=== PATIENT | female | born 1980 | race Caucasian/White ===

== ENCOUNTER 2020-01-07 09:21 | Emergency (ER) | payer SELFPAY ==
--- NOTE | 2020-01-07 | CT_ITS ---
EXAMINATION: CT ABDOMEN AND PELVIS WITH CONTRAST CLINICAL INFORMATION: Left-sided abdominal pain. Elevated glucose. COMPARISON: CT of the abdomen and pelvis done on 11/20/2011. TECHNIQUE: Multidetector volumetric images were obtained from the superior aspect of the liver through the pubic symphysis following administration 85 mL of Omnipaque 350 intravenous contrast. Sagittal and coronal reformatted images were obtained on the technologist's workstation. Oral contrast: No This CT examination was performed using dose optimization techniques as appropriate, variously including the following: *Automated exposure control *Adjustment of mA and/or kV according to patient size (this includes techniques or standardized protocols for targeted exams where dose is matched to indication/reason for exam; i.e. extremities or head) *Use of iterative reconstruction technique DLP: 438.29 mGy-cm FINDINGS: LUNG BASES: The visualized lung bases are unremarkable. LIVER, GALLBLADDER, AND BILIARY TREE: The liver is normal in size, shape, and attenuation. No focal hepatic lesion or biliary ductal dilatation is present. The gallbladder is surgically absent. PANCREAS: Unremarkable. SPLEEN: Unremarkable. ADRENAL GLANDS: Unremarkable. KIDNEYS AND URETERS: The kidneys are normal in size, shape, and attenuation. No hydronephrosis, hydroureter, or calculi seen. No perinephric stranding. Incidental note is made of a sub-5 mm hypodensity at the posterior-inferior cortex of the right kidney, too small for accurate characterization. BLADDER: Unremarkable. GASTROINTESTINAL TRACT: The small and large bowel are unremarkable. The appendix is unremarkable. ABDOMINAL WALL: No significant hernia is appreciated. LYMPH NODES: Normal. VASCULAR: Unremarkable. PELVIC VISCERA: Unremarkable. OSSEOUS STRUCTURES: Unremarkable. IMPRESSION: No CT evidence of any acute intra-abdominal and/or intrapelvic pathology is present. Incidental note is made of surgically absent gallbladder and sub-5 mm nonspecific subtle hypodense lesion within the right kidney, too small for accurate characterization.
[2020-01-07 09:30] VITALS: BP 121/88; PULSE 95; RESP 18; O2SAT 100; BMI 22.0
--- NOTE | 2020-01-07 10:03 | XR_ITS ---
EXAMINATION: XR CHEST CLINICAL INFORMATION: Elevated glucose and left-sided abdominal pain. COMPARISON: 08/25/2019 TECHNIQUE: 2 views of the chest were obtained. FINDINGS: Lungs are well-inflated and clear. Trachea is midline in position. No interstitial disease, consolidation or mass. No pleural effusion or pneumothorax. Cardiac silhouette and pulmonary vessels are normal in size. The mediastinum and donya have normal contour. The visualized bones, and upper abdomen, are unremarkable. IMPRESSION: Lungs are normal. No mass or pleural effusion. No acute cardiopulmonary abnormality.
[2020-01-07 10:42] LABS: MANUAL DIFF FLAG NO
[2020-01-07 10:44] LABS: Basophils Absolute Auto 0.1 X10*3/uL (0.0-0.2); Basophils Percent Auto 0.4 % (0-2); Eosinophils Absolute Auto 0.1 X10*3/uL (0.0-0.4); Eosinophils Percent Auto 1.1 % (0-4); Hematocrit 31.6 % (37-47); Hemoglobin 9.2 g/dl (12.0-16.0); Imm Gran Abs Auto 0.07 X10*3/uL (0.00-0.03); Imm Gran Pct Auto 0.5 % (0.0-0.4); Lymphocytes Absolute Auto 2.3 X10*3/uL (1.2-4.9); Lymphocytes Percent Auto 18.2 % (20-40); Mean Corpuscular HGB Conc 29.1 g/dl (31.0-35.0); Mean Corpuscular Hemoglobin 20.7 pg (27.0-33.0); Mean Corpuscular Volume 71.2 fL (80-98); Mean Platelet Volume 10.6 fL (9.4-12.3); Monocytes Absolute Auto 1.1 X10*3/uL (0.1-1.2); Monocytes Percent Auto 8.2 % (2-11); Neutrophils Absolute Auto 9.1 X10*3/uL (2.0-8.3); Neutrophils Percent Auto 71.6 % (45-73); Platelet Count 416 X10*3/uL (160-400); Red Blood Count 4.44 X10*6/uL (4.20-5.50); Red Cell Distribution Width 16.5 % (11.0-16.0); White Blood Count 12.8 X10*3/uL (4.8-10.8)
[2020-01-07 10:50] LABS: Glucose Urine UA >=1000 MG/DL (NEG); Leukocyte Esterase Urine NEG (NEG); Nitrite Urine NEG (NEG); Urine Blood 3+ (NEG); Urine Ketones 15 MG/DL (NEG); Urine Protein 1+ MG/DL (NEG-TRACE)
[2020-01-07] MEDS: 0.9 % Sodium Chloride 1,000 ML 999 ML IVCONT (10:50)
[2020-01-07 10:51] LABS: Appearance Urine CLOUDY; Color Urine YELLOW
[2020-01-07] MEDS: ondansetron HCL 4 MG/2 ML VIAL IVPUSH (10:51)
[2020-01-07] MEDS: Morphine Sulfate 4 MG/ML CARTRIDGE IVPUSH (10:51)
[2020-01-07 10:52] VITALS: BP 107/74; RESP 16; O2SAT 98
[2020-01-07 10:55] LABS: UPreg QC Valid YES; Urine Pregnancy NEGATIVE (NEGATIVE)
--- NOTE | 2020-01-07 10:55 | PC.NURSE ---
PT ALERT AND ORIENTED X4. SKIN WPD. RESPIRATIONS EVEN AND NON LABORED. C/O 9/10 PAIN TO LUQ; AREA TENDER TO PALPATION. DENIES N/V/D. MEDICATED WITH IV NS, ZOFRAN, MORPHINE PER EMAR. VSS. AWAITING LAB RESULTS AND ABD CT. PT ALSO REPORTS HYPERGLYCEMIA OF 500 THIS AM; STATES HER BLOOD SUGAR HAS BEEN A LITTLE HIGH, BUT NOT THIS BAD RECENTLY. TAKES METFORMIN ONLY.
[2020-01-07 11:10] LABS: Magnesium 1.9 mg/dL (1.6-2.6)
[2020-01-07 11:11] LABS: Bacteria Urine 3+ /LPF; Squamous Epithelial Cell Urine 2+ /LPF
[2020-01-07 11:12] LABS: Alanine Aminotransferase 13 U/L (0-31); Albumin Level 4.2 g/dL (3.5-5.0); Alkaline Phosphatase 93 U/L (39-117); Anion Gap 15 (12-20); Aspartate Amino Transferase 10 U/L (5-31); Bilirubin Direct 0.2 mg/dL (0.0-0.5); Bilirubin Total 0.4 mg/dL (0.0-1.0); Blood Urea Nitrogen 8 mg/dL (9-16); Carbon Dioxide 21 mmol/L (22-29); Chloride 100 mmol/L (96-108); Estimated Glomerular Filt Rate > 60; Lipase 28 U/L (8-78); Sodium 132 mmol/L (135-145); Total Protein 7.7 g/dL (6.5-8.0)
[2020-01-07 11:17] LABS: Troponin-I High Sensitivity < 3.5 ng/L (<3.5-17.0)
[2020-01-07 11:20] LABS: Glucose Random 457 mg/dL (60-115)
[2020-01-07 11:41] VITALS: BP 118/85; PULSE 91; RESP 18; TEMP 36.7; O2SAT 99
[2020-01-07] MEDS: iohexoL 350 MG/ML 100 ML INFUS..BTL IV (12:27)
[2020-01-07 12:31] LABS: Acetone, serum QL Negative (Negative)
--- NOTE | 2020-01-07 12:36 | ED_ITS ---
HPI - Abdominal Pain General Chief Complaint: Recheck/Abnormal Lab/Rx Stated Complaint: blood sugar high Time Seen by Provider: 01/07/20 09:42 Source: patient Mode of arrival: ambulatory Limitations: no limitations History of Present Illness HPI narrative: 39yoF c PMhx of DM currently on Metformin 1000mg BID, anemia, migraine headaches, neuropathy and arthritis presenting to the ED c c/o elevated blood glucose level in the 500s prior to arrival after eating breakfast and taking her metformin with associated right abdominal pain that started today c associated increased urgency/frequency and dysuria. Patient denies any fevers, nausea / vomiting, dizziness, changes in vision, lightheadedness, chest pain or shortness of breath, back pain, hematuria or abnormal vaginal discharge. Related Data Home Medications Medication Instructions Recorded Confirmed metformin 1,000 mg PO BID 01/07/20 01/07/20 Previous Rx's Medication Instructions Recorded cephalexin [Keflex] 500 mg PO Q6H 10 Days #40 cap 01/07/20 oxycodone-acetaminophen [Percocet] 1 tab PO Q6H PRN #10 tab 01/07/20 phenazopyridine [Pyridium] 100 mg PO TID PRN #10 tab 01/07/20 Allergies Allergy/AdvReac Type Severity Reaction Status Date / Time iron dextran complex AdvReac Intermediate SOB, Verified 01/07/20 09:38 [IRON DEXTRAN COMPLEX] COUGHING, FLUSHING, Review of Systems Review of Systems Yes all other systems are reviewed and are negative Constitutional: Reports as per HPI, Denies anorexia, Denies body ache(s), Denies chills, Denies fatigue, Denies fever(s), Denies headache(s), Denies poor appetite, Denies weakness, Denies weight gain and Denies weight loss Eyes: Reports as per HPI Reports as per HPI, Denies dizziness, Denies headache(s) and Denies neck pain Cardiovascular: Reports as per HPI, Denies chest pain and Denies dyspnea Respiratory: Reports as per HPI, Denies cough and Denies dyspnea Gastrointestinal: Reports as per HPI, Reports abdominal pain, Denies melena, Denies hematochezia, Denies coffee ground emesis, Denies constipation, Denies diarrhea, Denies loose stools, Denies nausea, Denies vomiting and Denies hematemesis Genitourinary: Reports as per HPI, Denies hematuria, Denies urinary frequency, Denies genital lesions, Reports dysuria, Denies flank pain, Reports urinary hes itancy and Reports urinary urgency Musculoskeletal: Reports as per HPI, Denies neck pain, Denies numbness and Denies tingling Skin/Breast: Reports as per HPI Reports as per HPI, Denies dizziness, Denies headache(s), Denies numbness, Denies tingling and Denies weakness Psychiatric: Reports as per HPI Endocrine: Reports as per HPI and Denies fatigue Hematologic/Lymphatic: Reports as per HPI Allergic/Immunologic: Reports as per HPI Physical Exam Vital Signs: Vital Signs: Vital Signs Temp Pulse Resp BP Pulse Ox 01/07/20 11:41 98.1 F 91 18 118/85 99 01/07/20 10:52 16 107/74 98 01/07/20 09:30 95 18 121/88 100 Body Mass Index 22.0 Const: General: cooperative, healthy appearing, comfortable, no acute distress, well developed, alert, awake and Physically active Nutritional Appearance: average body habitus and well nourished Orientation/consciousness: patient oriented x3 Limitations: no limitations HENMT: Head: Yes normal to inspection, Yes No palpable skull fracture present, Yes normocephalic and Yes atraumatic Ears: hearing grossly normal bilaterally General nose exam: Normal external nose present Face and sinus: Yes normal facial exam Mouth: moist mucous membranes Eyes: General: appearance normal, both eyes and all related structures Visual Neri: normal visual neri by confrontation Alignment and Position: alignment normal Periorbital: periorbital findings normal Eyelids: Yes eyelids normal Conjunctivae: conjunctivae normal Sclerae: sclerae normal Pupils: Equal, round and reactive pupils present EOM: EOMs intact bilaterally Neck: Neck: Yes normal visual inspection, Yes full ROM, Yes no lymphadenopathy, Yes no meningeal signs, Yes trachea midline and Yes supple Chest: Chest palpation & inspection: normal inspection of the chest Resp: Effort & Inspection: normal respiratory effort and able to speak in complete sentences Auscultation: clear to auscultation bilaterally, no crackles, no rales, no rhonchi and no wheezes Cardio: Rate: regular rate Rhythm: regular rhythm Heart sounds: S1 normal heart sound present and S2 normal heart sound present Peripheral pulses: Peripheral pulses 2+ throughout GI: Inspection: Yes normal to inspection Palpation (GI): Soft to palpation, Tenderness to palpation present (GI) (r side of abdomen ) Salgado's sign negative, obturator sign negative, psoas sign negative and Rovsing's sign negative and No hepatosplenomegaly present Percussion: Yes normal to percussion Auscultation: normal bowel sounds : General: Yes no CVA tenderness Back/Spine/Pelvis: Back: no CVA tenderness Cervical Spine: normal cervical lordosis and cervical ROM normal Thoracic/Lumbar Spine: thoracic and lumbar spine normal to inspection and thoraco-lumbar ROM normal Skin: General skin exam: no rashes or lesions noted, elasticity normal and turgor normal Trauma: no lacerations or abrasions Wounds: no wounds Hair: normal Nails: normal Neuro: General: patient oriented x3 and no meningeal signs Cranial nerves: Yes CN's II-XII intact bilaterally and Yes Equal, round and reactive pupils present Cognition (Neuro): normal cognition Gait exam (Neuro): Normal gait present Motor exam (neuro): 5/5 motor strength present throughout Extrem: General: Yes normal to inspection, Yes full ROM, Yes capillary refill normal, Yes no clubbing, cyanosis or edema, No no pedal edema, No no calf tenderness, Yes normal gait and No edema Right upper extremity: normal to inspection, full ROM and normal capillary refill; no edema Left upper e xtremity: normal to inspection, full ROM and normal capillary refill; no edema Right lower extremity: normal to inspection, full ROM and normal capillary refill; no edema Left lower extremity: normal to inspection, full ROM and normal capillary refill; no edema Psych: Appearance: grossly normal and well kempt Mental Status: mental status grossly normal Speech and movement: Normal speech and movement present and Clear speech present Affect: normal affect Attitude: cooperative Thought process: Normal thought process present Thought content: Normal thought content present Insight: Good insight present (Psych) Judgement: Good judgement present (Psych) Course Course Course Narrative: 39yoF c PMhx of DM currently on Metformin 1000mg BID, anemia, migraine headaches, neuropathy and arthritis presenting to the ED c c/o elevated blood glucose level in the 500s prior to arrival after eating breakfast and taking her metformin with associated right abdominal pain that started today c associated increased urgency/frequency and dysuria. Patient denies any fevers, nausea / vomiting, dizziness, changes in vision, lightheadedness, chest pain or shortness of breath, back pain, hematuria or abnormal vaginal discharge. - Concern for DKA vs Hyperglycemia. - Concern for appy vs UTI vs pyelonephritis vs kidney stones. - Plan: Labs, UA, UHCG, Acetone, CT scan of abd/pelvis c IV contrast. Provide 4 mg of zofran and morphine then Re-evaluate. Reevaluation(s) Reevaluation #1: - Patient had a mildly elevated white blood cell count at 12,000 and was tachycardic at 91 therefore blood cultures and lactic acid were ordered. - Sodium at 01:32. Otherwise all other labs within normal limits. - Lactic acid 1.5. - Patient's initial blood glucose level was 457 after giving 10 units of IV insulin along with 1 L of IV fluids her repeat POC level is now 175. - CT scan of abdomen pelvis negative with exception of a right kidney lesion otherwise no other acute processes such as cholecystitis or appendicitis therefore patient was given 2 g of Rocephin due to her UA appears that she has UTI and will DC home with antibiotics for UTI and symptomatic treatment. Along with referral to Urology for the kidney lesion. Patient understands agrees with this plan. MDM - Abdominal Pain Lab Data Result diagrams: 01/07/20 10:37 01/07/20 10:37 Labs: Lab Results 01/07/20 01/07/20 01/07/20 Range/Units 10:36 10:37 10:37 WBC 12.8 H (4.8-10.8) X10*3/uL RBC 4.44 (4.20-5.50) X10*6/uL Hgb 9.2 L (12.0-16.0) g/dl Hct 31.6 L (37-47) % MCV 71.2 L (80-98) fL MCH 20.7 L (27.0-33.0) pg MCHC 29.1 L (31.0-35.0) g/dl RDW 16.5 H (11.0-16.0) % Plt Count 416 H (160-400) X10*3/uL MPV 10.6 (9.4-12.3) fL Immature Gran % (Auto) 0.5 H (0.0-0.4) % Neut % (Auto) 71.6 (45-73) % Lymph % (Auto) 18.2 L (20-40) % Pershing % (Auto) 8.2 (2-11) % Eos % (Auto) 1.1 (0-4) % Baso % (Auto) 0.4 (0-2) % Lymph # (Auto) 2.3 (1.2-4.9) X10*3/uL Pershing # (Auto) 1.1 (0.1-1.2) X10*3/uL Eos # (Auto) 0.1 (0.0-0.4) X10*3/uL Baso # (Auto) 0.1 (0.0-0.2) X10*3/uL Abs Immat Gran (auto) 0.07 H (0.00-0.03) X10*3/uL Absolute Neuts (auto) 9.1 H (2.0-8.3) X10*3/uL Absolute Nucleated RBC 0.000 (0.0-0.012) X10*3/uL Nucleated RBC % (auto) 0.0 (0.0-0.2) /100WBC Sodium (135-145) mmol/L Potassium (3.3-5.1) mmol/l Chloride (96-108) mmol/L Carbon Dioxide (22-29) mmol/L Anion Gap (12-20) BUN (9-16) mg/dL Creatinine (0.5-1.4) mg/dL Estim Creat Clear Calc Estimated GFR POC Glucose (60-115) mg/dL Random Glucose (60-115) mg/dL Lactic Acid (0.5-2.0) mmol/L Calcium (8.4-10.2) mg/dL Magnesium 1.9 (1.6-2.6) mg/dL Total Bilirubin (0.0-1.0) mg/dL Direct Bilirubin (0.0-0.5) mg/dL AST (5-31) U/L ALT (0-31) U/L Alkaline Phosphatase (39-117) U/L Troponin I High Sens (<3.5-17.0) ng/L Total Protein (6.5-8.0) g/dL Albumin (3.5-5.0) g/dL Lipase (8-78) U/L Urine Color YELLOW Urine Appearance CLOUDY Urine pH 6.0 (5.0-8.0) Ur Specific [place] 1.020 (1.005-1.025) Urine Protein 1+ H (NEG-TRACE) MG/DL Urine Glucose (UA) >=1000 H (NEG) MG/DL Urine Ketones 15 (NEG) MG/DL Urine Blood 3+ H (NEG) Urine Nitrite NEG (NEG) Ur Leukocyte Esterase NEG (NEG) Urine RBC 5-9 H (0) /HPF Urine WBC 10-14 H (0-4) /HPF Ur Squamous Epith Cells 2+ /LPF Urine Bacteria 3+ /LPF Urine Yeast TRACE /HPF Urine Test NEGATIVE (NEGATIVE) Acetone, Qual (Negative) 01/07/20 01/07/20 01/07/20 Range/Units 10:37 10:37 12:26 WBC (4.8-10.8) X10*3/uL RBC (4.20-5.50) X10*6/uL Hgb (12.0-16.0) g/dl Hct (37-47) % MCV (80-98) fL MCH (27.0-33.0) pg MCHC (31.0-35.0) g/dl RDW (11.0-16.0) % Plt Count (160-400) X10*3/uL MPV (9.4-12.3) fL Immature Gran % (Auto) (0.0-0.4) % Neut % (Auto) (45-73) % Lymph % (Auto) (20-40) % Pershing % (Auto) (2-11) % Eos % (Auto) (0-4) % Baso % (Auto) (0-2) % Lymph # (Auto) (1.2-4.9) X10*3/uL Pershing # (Auto) (0.1-1.2) X10*3/uL Eos # (Auto) (0.0-0.4) X10*3/uL Baso # (Auto) (0.0-0.2) X10*3/uL Abs Immat Gran (auto) (0.00-0.03) X10*3/uL Absolute Neuts (auto) (2.0-8.3) X10*3/uL Absolute Nucleated RBC (0.0-0.012) X10*3/uL Nucleated RBC % (auto) (0.0-0.2) /100WBC Sodium 132 L (135-145) mmol/L Potassium 4.0 (3.3-5.1) mmol/l Chloride 100 (96-108) mmol/L Carbon Dioxide 21 L (22-29) mmol/L Anion Gap 15 (12-20) BUN 8 L (9-16) mg/dL Creatinine 0.78 (0.5-1.4) mg/dL Estim Creat Clear Calc 95.0 Estimated GFR > 60 POC Glucose (60-115) mg/dL Random Glucose 457 H* (60-115) mg/dL Lactic Acid 1.5 (0.5-2.0) mmol/L Calcium 9.0 (8.4-10.2) mg/dL Magnesium (1.6-2.6) mg/dL Total Bilirubin 0.4 (0.0-1.0) mg/dL Direct Bilirubin 0.2 (0.0-0.5) mg/dL AST 10 (5-31) U/L ALT 13 (0-31) U/L Alkaline Phosphatase 93 (39-117) U/L Troponin I High Sens < 3.5 (<3.5-17.0) ng/L Total Protein 7.7 (6.5-8.0) g/dL Albumin 4.2 (3.5-5.0) g/dL Lipase 28 (8-78) U/L Urine Color Urine Appearance Urine pH (5.0-8.0) Ur Specific [place] (1.005-1.025) Urine Protein (NEG-TRACE) MG/DL Urine Glucose (UA) (NEG) MG/DL Urine Ketones (NEG) MG/DL Urine Blood (NEG) Urine Nitrite (NEG) Ur Leukocyte Esterase (NEG) Urine RBC (0) /HPF Urine WBC (0-4) /HPF Ur Squamous Epith Cells /LPF Urine Bacteria /LPF Urine Yeast /HPF Urine Test (NEGATIVE) Acetone, Qual Negative (Negative) 01/07/20 Range/Units 13:49 WBC (4.8-10.8) X10*3/uL RBC (4.20-5.50) X10*6/uL Hgb (12.0-16.0) g/dl Hct (37-47) % MCV (80-98) fL MCH (27.0-33.0) pg MCHC (31.0-35.0) g/dl RDW (11.0-16.0) % Plt Count (160-400) X10*3/uL MPV (9.4-12.3) fL Immature Gran % (Auto) (0.0-0.4) % Neut % (Auto) (45-73) % Lymph % (Auto) (20-40) % Pershing % (Auto) (2-11) % Eos % (Auto) (0-4) % Baso % (Auto) (0-2) % Lymph # (Auto) (1.2-4.9) X10*3/uL Pershing # (Auto) (0.1-1.2) X10*3/uL Eos # (Auto) (0.0-0.4) X10*3/uL Baso # (Auto) (0.0-0.2) X10*3/uL Abs Immat Gran (auto) (0.00-0.03) X10*3/uL Absolute Neuts (auto) (2.0-8.3) X10*3/uL Absolute Nucleated RBC (0.0-0.012) X10*3/uL Nucleated RBC % (auto) (0.0-0.2) /100WBC Sodium (135-145) mmol/L Potassium (3.3-5.1) mmol/l Chloride (96-108) mmol/L Carbon Dioxide (22-29) mmol/L Anion Gap (12-20) BUN (9-16) mg/dL Creatinine (0.5-1.4) mg/dL Estim Creat Clear Calc Estimated GFR POC Glucose 175 H (60-115) mg/dL Random Glucose (60-115) mg/dL Lactic Acid (0.5-2.0) mmol/L Calcium (8.4-10.2) mg/dL Magnesium (1.6-2.6) mg/dL Total Bilirubin (0.0-1.0) mg/dL Direct Bilirubin (0.0-0.5) mg/dL AST (5-31) U/L ALT (0-31) U/L Alkaline Phosphatase (39-117) U/L Troponin I High Sens (<3.5-17.0) ng/L Total Protein (6.5-8.0) g/dL Albumin (3.5-5.0) g/dL Lipase (8-78) U/L Urine Color Urine Appearance Urine pH (5.0-8.0) Ur Specific [place] (1.005-1.025) Urine Protein (NEG-TRACE) MG/DL Urine Glucose (UA) (NEG) MG/DL Urine Ketones (NEG) MG/DL Urine Blood (NEG) Urine Nitrite (NEG) Ur Leukocyte Esterase (NEG) Urine RBC (0) /HPF Urine WBC (0-4) /HPF Ur Squamous Epith Cells /LPF Urine Bacteria /LPF Urine Yeast /HPF Urine Test (NEGATIVE) Acetone, Qual (Negative) Discharge Plan Discharge Clinical Impression: Acute hyperglycemia, Acute hyponatremia, Kidney lesion UTI (urinary tract infection) Qualifiers: Urinary tract infection type: acute cystitis Hematuria presence: with hematuria Qualified Code(s): N30.01 - Acute cystitis with hematuria Patient Disposition: Home, Self-Care Instructions: Urinary Tract Infection in Women (ED), Hyponatremia (ED), Diabe tic Hyperglycemia (ED) Prescriptions: New cephalexin [Keflex] 500 mg capsule 500 mg PO Q6H 10 Days Qty: 40 RF: 0 phenazopyridine [Pyridium] 100 mg tablet 100 mg PO TID PRN (Reason: pain) Qty: 10 RF: 0 oxycodone-acetaminophen [Percocet] 5-325 mg tablet 1 tab PO Q6H PRN (Reason: pain) Qty: 10 RF: 0 No Action metformin 1,000 mg Tablet 1,000 mg PO BID RF: 0 Referrals: Arnulfo Stock MD [Physician] - 2 days Stand Alone Forms: Work/School Release Print Language: [place]ian [facility] Past Medical History Attestation statement: The following information was validated with the patient. Medical History Anemia Diabetes Migraine Neuropathy Rheumatoid arthritis Surgical History H/O tubal ligation Hx of cholecystectomy Social History Social History Alcohol intake: current Alcohol intake frequency: a few times a month Smoking Status: Current every day smoker Use of substances other than those prescribed or required for medical reasons: No Advance Directives: No Advance Directives Information Provided: Yes
[2020-01-07] MEDS: Insulin Regular, Human 100 UNIT/ML 3 ML VIAL 10 UNIT IVPUSH (12:39)
[2020-01-07 12:51] LABS: Lactic Acid 1.5 mmol/L (0.5-2.0)
[2020-01-07] MEDS: cefTRIAXone sodium 2 GM in 0.9 % Sodium Chloride 50 ML IV (13:37)
[2020-01-07 13:53] LABS: Glucose, Whole Blood 175 mg/dL (60-115)
[2020-01-10 07:54] LABS: Glucose, Whole Blood 357 mg/dL (60-115)
== END 2020-01-07 14:35 | disposition home or self-care (01) ==
PROVIDERS: Physician Assistant Medical; Emergency Provider Emergency Medicine
DX: N30.01 Acute cystitis with hematuria (principal); Z79.899 Other long term (current) drug therapy
CPT/HCPCS: 36415; 71046; 74177; 80048; 80076; 81001; 81025; 82009; 82947; 83605; 83690; 83735; 84484; 85025; 87040; 96361; 96365; 96375; 99284; J2270; J2405

== ENCOUNTER 2020-04-16 16:29 | Emergency (ER) | payer MEDICAID, SELFPAY ==
[2020-04-16 16:53] VITALS: BP 141/88; PULSE 113; RESP 18; TEMP 36.4; O2SAT 98; BMI 49.8
--- NOTE | 2020-04-16 16:55 | CT_ITS ---
EXAMINATION: CT HEAD WITHOUT CONTRAST CLINICAL INFORMATION: Left-sided weakness and numbness COMPARISON: Head CT 10/06/2011 TECHNIQUE: Contiguous axial imaging was performed from the skull base to vertex without intravenous administration of contrast. This CT examination was performed using dose optimization techniques as appropriate, variously including the following: *Automated exposure control *Adjustment of mA and/or kV according to patient size (this includes techniques or standardized protocols for targeted exams where dose is matched to indication/reason for exam; i.e. extremities or head) *Use of iterative reconstruction technique DLP: 729 mGy-cm FINDINGS: There is no evidence of acute intracranial hemorrhage or territorial infarction. No abnormal mass effect or midline shift is seen. Gerber to white matter differentiation is well preserved. No extra-axial fluid collections are identified. The ventricles are normal in size. There is no abnormal attenuation within the brain parenchyma. The osseous structures and soft tissues are normal. The mastoid air cells are well aerated. There is mild mucosal thickening of the right ethmoid sinus. There are polyps versus mucosal thickening of the right maxillary sinus. CT/CT head/brain wo IV con IMPRESSION: No acute intracranial pathology.
--- NOTE | 2020-04-16 16:56 | ED.NEUROSD ---
HPI - Neuro Symptoms/Deficit General Chief Complaint: Neuro Symptoms/Deficit Stated Complaint: Left side numbness Time Seen by Provider: 04/16/20 16:55 Related Data Home Medications Medication Instructions Recorded Confirmed metformin 1,000 mg PO BID 01/07/20 01/07/20 Previous Rx's Medication Instructions Recorded cephalexin [Keflex] 500 mg PO Q6H 10 Days #40 cap 01/07/20 oxycodone-acetaminophen [Percocet] 1 tab PO Q6H PRN #10 tab 01/07/20 phenazopyridine [Pyridium] 100 mg PO TID PRN #10 tab 01/07/20 Allergies Allergy/AdvReac Type Severity Reaction Status Date / Time iron dextran complex AdvReac Intermediate SOB, Verified 04/16/20 16:53 [IRON DEXTRAN COMPLEX] COUGHING, FLUSHING, PMFSH Past Medical History Medical History Anemia Diabetes Migraine Neuropathy Rheumatoid arthritis Surgical History H/O tubal ligation Hx of cholecystectomy Social History Social History Alcohol intake: current Alcohol intake frequency: a few times a month Smoking Status: Current every day smoker Physical Exam Vital Signs: Vital Signs: Last Vital Signs Temp 97.6 F 04/16/20 16:53 Pulse 113 H 04/16/20 16:53 Resp 18 04/16/20 16:53 BP 141/88 H 04/16/20 16:53 Pulse Ox 98 04/16/20 16:53 Body Mass Index 49.8 Course Course Course Narrative: Rapid medical assessment upon arrival to ER: 39 y/o female with history of poorly controlled DM2 with neuropathy, RA, migraines, anemia presenting with 2 days of numbness and pain her left arm and leg. She reports LUE weakness due to the pain with normal ROM and normal gait. No speech abnormalities. Weak hand grasp, +pronator drift, +leg drift. Will get labs and CT head to r/o CVA, suspect exacerbation of neuropathy. Not tPA candidate. NIH Stroke Scale Internal: Initial- Upon Arrival Time: 16:59 Level of Consciousness: Alert Level of Consciousness Questions: Answers both questions correctly Level of Consciousness Commands: Performs both tasks correctly Best Gaze: Normal Visual: No visual loss Facial Palsy: Normal Motor Arm (Right): No drift Motor Arm (Left): Drift Motor Leg (Right): No drift Motor Leg (Left): Drift Limb Ataxia: Absent Sensory: Mild to moderate sensory loss Best Language: No aphasia Dysarthia: Normal Extinction and Inattention: No abnormality Score: 3 Discharge Plan Discharge Prescriptions: No Action metformin 1,000 mg Tablet 1,000 mg PO BID RF: 0 cephalexin [Keflex] 500 mg capsule 500 mg PO Q6H 10 Days Qty: 40 RF: 0 phenazopyridine [Pyridium] 100 mg tablet 100 mg PO TID PRN (Reason: pain) Qty: 10 RF: 0 oxycodone-acetaminophen [Percocet] 5-325 mg tablet 1 tab PO Q6H PRN (Reason: pain) Qty: 10 RF: 0
--- NOTE | 2020-04-16 17:37 | ECG_ITS ---
Test Reason : WEAKNESS Blood Pressure : / mmHG Vent. Rate : 092 BPM Atrial Rate : 092 BPM P-R Int : 122 ms QRS Dur : 088 ms QT Int : 372 ms P-R-T Axes : 016 048 051 degrees QTc Int : 460 ms Normal sinus rhythm Normal ECG When compared with ECG of 25-AUG-2019 15:36, No significant change was found Referred By: Francesco White Electronically Signed By:JOSELIN HERNANDEZ
--- NOTE | 2020-04-16 17:53 | ED_ITS ---
HPI - Neuro Symptoms/Deficit General Chief Complaint: Neuro Symptoms/Deficit Stated Complaint: Left side numbness Time Seen by Provider: 04/16/20 16:55 Source: patient Mode of arrival: ambulatory Limitations: no limitations History of Present Illness HPI Narrative: Patient presents to ED for left arm and left leg nu mbness/weakness/tingling. Patient states she woke up 2 days ago and for her left arm and left leg feel weak. Denies any slurred speech, loss of vision, headache, dizziness, chest pain, facial injury, or shortness of breath. Patient noticed and she has to put extra effort to hold things with her left hand. Patient denies any history of crack cocaine or control use. Onset (ago): day(s) (Two days) Related Data Home Medications Medication Instructions Recorded Confirmed metformin 1,000 mg PO BID 01/07/20 01/07/20 Previous Rx's Medication Instructions Recorded cephalexin [Keflex] 500 mg PO Q6H 10 Days #40 cap 01/07/20 oxycodone-acetaminophen [Percocet] 1 tab PO Q6H PRN #10 tab 01/07/20 phenazopyridine [Pyridium] 100 mg PO TID PRN #10 tab 01/07/20 Allergies Allergy/AdvReac Type Severity Reaction Status Date / Time iron dextran complex AdvReac Intermediate SOB, Verified 04/16/20 16:53 [IRON DEXTRAN COMPLEX] COUGHING, FLUSHING, Review of Systems Constitutional: Constitutional: Reports as per HPI and Reports no additional constitutional complaints Eyes: Eyes: Reports as per HPI and Reports no additional eye complaints ENT: Reports system reviewed and no additional complaints, except as documented and Reports as per HPI Cardiovascular: Cardiovascular: Reports as per HPI and Reports no additional cardiovascular complaints Respiratory: Respiratory: Reports as per HPI and Reports no additional respiratory complaints Gastrointestinal: Gastrointestinal: Reports as per HPI and Reports no additional gastrointestinal complaints Genitourinary: Genitourinary: Reports no additional female genitourinary complaints and Reports as per HPI Musculoskeletal: Musculoskeletal: Reports no additional musculoskeletal complaints and Reports as per HPI Neurologic: Reports system reviewed and no additional complaints, except as documented and Reports as per HPI Comments: Left arm and leg weakness/numbness/tingling. Psychiatric: Psychiatric: Reports no additional psychiatric complaints and Reports as per HPI [facility] Past Medical History Medical History Anemia Diabetes Migraine Neuropathy Rheumatoid arthritis Surgical History H/O tubal ligation Hx of cholecystectomy Social History Social History Alcohol intake: unknown Smoking Status: Current every day smoker Smoked in Last 30 Days: No Use of substances other than those prescribed or required for medical reasons: No Advance Directives: No Advance Directives Information Provided: Yes Physical Exam Vital Signs: Vital Signs: Last Vital Signs Temp 98.7 F 04/16/20 18:50 Pulse 87 04/16/20 18:50 Resp 18 04/16/20 18:50 BP 122/76 04/16/20 18:50 Pulse Ox 100 04/16/20 18:50 Body Mass Index 49.8 Const: General: cooperative, healthy appearing, comfortable, no acute distress, well developed, alert, awake and Physically active Orientation/consciousness: patient oriented x3 HENMT: Head: Yes normal to inspection, Yes No palpable skull fracture present, Yes normocephalic and Yes atraumatic Eyes: General: appearance normal, both eyes and all related structures Neck: Neck: Yes normal visual inspection, Yes full ROM, Yes no lymphadenopathy, Yes trachea midline, Yes supple and No tender Chest: Chest palpation & inspection: normal inspection of the chest and normal palpation of entire chest wall Resp: Effort & Inspection: normal respiratory effort and able to speak in complete sentences Auscultation: clear to auscultation bilaterally Cardio: Jugular venous distension: no JVD Heart sounds: S1 normal heart sound present and S2 normal heart sound present : General: No CVA tenderness and Yes no CVA tenderness Back/Spine/Pelvis: Back: no CVA tenderness, No CVA tenderness and No back tenderness Skin: General skin exam: no rashes or lesions noted and elasticity normal Neuro: Other: Negative for slurred speech. Negative for facial droop. Positive for mild left pronator drift. Left arm and left leg motor strength is slighty weaker than right upper and right lower extremity. Right upper& lower extremity strength 5+. left upper extremity and left lower extremity strength is 4+. Negative nystagmus. presently on ambulation patient's gait is normal. General: patient oriented x3 Course Course Course Narrative: Patient's out the window for any stroke intervention if she has a stroke due to patient stating she woke up with symptoms 2 days ago. Patient will be sent for head CT, basic labs including magnesium EKG and troponin. Reevaluation(s) Reevaluation #1: Patient head CT scan came back negative for any stroke. Patient electrolytes are normal. Patient has known history of iron defiency anemia. Hemoglobina and hematomcrit is about at baseline. tranfuseion not indicaed presenty.Patient informed to follow up with neurology. Case discussed with Dr. Huang who agree patient will follow-up with neurology and be discharged. Patient electrolytes are normal. Troponin negative. Patient gait normal on discharge. Time: 19:36 MDM - Neuro Symptoms/Deficit MDM Narrative Medical decision making narrative: Polyneuropathy, weakness, Lab Data Result diagrams: 04/16/20 17:44 04/16/20 17:44 Labs: Lab Results 04/16/20 04/16/20 04/16/20 Range/Units 17:44 17:44 17:44 WBC 8.8 (4.8-10.8) X10*3/uL RBC 4.36 (4.20-5.50) X10*6/uL Hgb 8.8 L (12.0-16.0) g/dl Hct 30.2 L (37-47) % MCV 69.3 L (80-98) fL MCH 20.2 L (27.0-33.0) pg MCHC 29.1 L (31.0-35.0) g/dl RDW 16.8 H (11.0-16.0) % Plt Count 334 (160-400) X10*3/uL MPV 10.9 (9.4-12.3) fL Immature Gran % (Auto) 0.3 (0.0-0.4) % Neut % (Auto) 57.8 (45-73) % Lymph % (Auto) 32.8 (20-40) % [place] % (Auto) 7.3 (2-11) % Eos % (Auto) 1.3 (0-4) % Baso % (Auto) 0.5 (0-2) % Lymph # (Auto) 2.9 (1.2-4.9) X10*3/uL [place] # (Auto) 0.6 (0.1-1.2) X10*3/uL Eos # (Auto) 0.1 (0.0-0.4) X10*3/uL Baso # (Auto) 0.0 (0.0-0.2) X10*3/uL Abs Immat Gran (auto) 0.03 (0.00-0.03) X10*3/uL Absolute Neuts (auto) 5.1 (2.0-8.3) X10*3/uL Absolute Nucleated RBC 0.000 (0.0-0.012) X10*3/uL Nucleated RBC % (auto) 0.0 (0.0-0.2) /100WBC PT 11.4 (10.8-13.0) SEC INR 1.0 (0.9-1.1) APTT 26.5 (24.1-38.0) SEC Hold Blue Top SEE NOTE Sodium 133 L (135-145) mmol/L Potassium 4.0 (3.3-5.1) mmol/l Chloride 101 (96-108) mmol/L Carbon Dioxide 24 (22-29) mmol/L Anion Gap 12 (12-20) BUN 6 L (9-16) mg/dL Creatinine 0.69 (0.5-1.4) mg/dL Estim Creat Clear Calc 159.8 Estimated GFR > 60 Random Glucose 332 H (60-115) mg/dL Calcium 8.8 (8.4-10.2) mg/dL Magnesium 1.9 (1.6-2.6) mg/dL Total Bilirubin < 0.2 (0.0-1.0) mg/dL AST 10 (5-31) U/L ALT 8 (0-31) U/L Alkaline Phosphatase 87 (39-117) U/L Troponin I High Sens (<3.5-17.0) ng/L Total Protein 7.4 (6.5-8.0) g/dL Albumin 3.8 (3.5-5.0) g/dL Urine Color Urine Appearance Urine pH (5.0-8.0) Ur Specific [place] (1.005-1.025) Urine Protein (NEG-TRACE) MG/DL Urine Glucose (UA) (NEG) MG/DL Urine Ketones (NEG) MG/DL Urine Blood (NEG) Urine Nitrite (NEG) Ur Leukocyte Esterase (NEG) Urine RBC (0) /HPF Urine WBC (0-4) /HPF Ur Squamous Epith Cells /LPF Urine Bacteria /LPF 04/16/20 04/16/20 Range/Units 17:44 17:44 WBC (4.8-10.8) X10*3/uL RBC (4.20-5.50) X10*6/uL Hgb (12.0-16.0) g/dl Hct (37-47) % MCV (80-98) fL MCH (27.0-33.0) pg MCHC (31.0-35.0) g/dl RDW (11.0-16.0) % Plt Count (160-400) X10*3/uL MPV (9.4-12.3) fL Immature Gran % (Auto) (0.0-0.4) % Neut % (Auto) (45-73) % Lymph % (Auto) (20-40) % [place] % (Auto) (2-11) % Eos % (Auto) (0-4) % Baso % (Auto) (0-2) % Lymph # (Auto) (1.2-4.9) X10*3/uL [place] # (Auto) (0.1-1.2) X10*3/uL Eos # (Auto) (0.0-0.4) X10*3/uL Baso # (Auto) (0.0-0.2) X10*3/uL Abs Immat Gran (auto) (0.00-0.03) X10*3/uL Absolute Neuts (auto) (2.0-8.3) X10*3/uL Absolute Nucleated RBC (0.0-0.012) X10*3/uL Nucleated RBC % (auto) (0.0-0.2) /100WBC PT (10.8-13.0) SEC INR (0.9-1.1) APTT (24.1-38.0) SEC Hold Blue Top Sodium (135-145) mmol/L Potassium (3.3-5.1) mmol/l Chloride (96-108) mmol/L Carbon Dioxide (22-29) mmol/L Anion Gap (12-20) BUN (9-16) mg/dL Creatinine (0.5-1.4) mg/dL Estim Creat Clear Calc Estimated GFR Random Glucose (60-115) mg/dL Calcium (8.4-10.2) mg/dL Magnesium (1.6-2.6) mg/dL Total Bilirubin (0.0-1.0) mg/dL AST (5-31) U/L ALT (0-31) U/L Alkaline Phosphatase (39-117) U/L Troponin I High Sens < 3.5 (<3.5-17.0) ng/L Total Protein (6.5-8.0) g/dL Albumin (3.5-5.0) g/dL Urine Color STRAW Urine Appearance CLEAR Urine pH 6.0 (5.0-8.0) Ur Specific [place] 1.020 (1.005-1.025) Urine Protein NEG (NEG-TRACE) MG/DL Urine Glucose (UA) >=1000 H (NEG) MG/DL Urine Ketones NEG (NEG) MG/DL Urine Blood NEG (NEG) Urine Nitrite NEG (NEG) Ur Leukocyte Esterase NEG (NEG) Urine RBC 0 (0) /HPF Urine WBC 0 (0-4) /HPF Ur Squamous Epith Cells 1+ /LPF Urine Bacteria NONE /LPF ECG Data Interpretation: Normal sinus rhythm. Normal EKG. Ventricular rate 92. VT interval 122. QRS 88. Negative STEMI Discharge Plan Discharge Clinical Impression: Weakness, Peripheral neuropathy Patient Disposition: Home, Self-Care Instructions: Peripheral Neuropathy (ED), Weakness (ED) Additional Instructions: Return to the ED immediately for slurred speech, loss of vision, worsening weakness, headache, dizziness, chest pain, shortness of breath, or any other concerning symptoms. Prescriptions: No Action metformin 1,000 mg Tablet 1,000 mg PO BID RF: 0 cephalexin [Keflex] 500 mg capsule 500 mg PO Q6H 10 Days Qty: 40 RF: 0 phenazopyridine [Pyridium] 100 mg tablet 100 mg PO TID PRN (Reason: pain) Qty: 10 RF: 0 oxycodone-acetaminophen [Percocet] 5-325 mg tablet 1 tab PO Q6H PRN (Reason: pain) Qty: 10 RF: 0 Referrals: Isabella Christy MD [Physician] - 2 days (Left upper lower extremity weakness for 2 days and peripheral neuropathy. Head CT scan normal 2 days after symptom onset.) Stand Alone Forms: Work/School Release Interventions: ED Discharge Assessment Last Done: 04/16/20 19:48 Discharge Date/Time: 04/16/20 19:48 Print Language: Malagasy
[2020-04-16 17:55] LABS: MANUAL DIFF FLAG NO
[2020-04-16 18:01] LABS: Basophils Percent Auto 0.5 % (0-2); Eosinophils Absolute Auto 0.1 X10*3/uL (0.0-0.4); Eosinophils Percent Auto 1.3 % (0-4); Hematocrit 30.2 % (37-47); Hemoglobin 8.8 g/dl (12.0-16.0); Imm Gran Abs Auto 0.03 X10*3/uL (0.00-0.03); Imm Gran Pct Auto 0.3 % (0.0-0.4); Lymphocytes Absolute Auto 2.9 X10*3/uL (1.2-4.9); Lymphocytes Percent Auto 32.8 % (20-40); Mean Corpuscular HGB Conc 29.1 g/dl (31.0-35.0); Mean Corpuscular Hemoglobin 20.2 pg (27.0-33.0); Mean Corpuscular Volume 69.3 fL (80-98); Mean Platelet Volume 10.9 fL (9.4-12.3); Monocytes Absolute Auto 0.6 X10*3/uL (0.1-1.2); Monocytes Percent Auto 7.3 % (2-11); Neutrophils Absolute Auto 5.1 X10*3/uL (2.0-8.3); Neutrophils Percent Auto 57.8 % (45-73); Platelet Count 334 X10*3/uL (160-400); Red Blood Count 4.36 X10*6/uL (4.20-5.50); Red Cell Distribution Width 16.8 % (11.0-16.0); White Blood Count 8.8 X10*3/uL (4.8-10.8)
[2020-04-16 18:04] LABS: Glucose Urine UA >=1000 MG/DL (NEG); Leukocyte Esterase Urine NEG (NEG); Nitrite Urine NEG (NEG); Urine Blood NEG (NEG); Urine Ketones NEG (NEG); Urine Protein NEG (NEG-TRACE)
[2020-04-16 18:07] LABS: Prothrombin Time 11.4 SEC (10.8-13.0)
[2020-04-16 18:10] LABS: Partial Thromboplastin Time 26.5 SEC (24.1-38.0)
[2020-04-16 18:11] VITALS: BP 125/90; PULSE 99; RESP 16; O2SAT 99
[2020-04-16] MEDS: 0.9 % Sodium Chloride 1,000 ML 999 ML IV (18:12)
[2020-04-16 18:13] LABS: Appearance Urine CLEAR; Color Urine STRAW
[2020-04-16 18:24] LABS: RBC Urine 0 /HPF (0); Squamous Epithelial Cell Urine 1+ /LPF; WBC Urine 0 /HPF (0-4)
[2020-04-16 18:26] LABS: Alanine Aminotransferase 8 U/L (0-31); Albumin Level 3.8 g/dL (3.5-5.0); Alkaline Phosphatase 87 U/L (39-117); Anion Gap 12 (12-20); Aspartate Amino Transferase 10 U/L (5-31); Bilirubin Total < 0.2 mg/dL (0.0-1.0); Blood Urea Nitrogen 6 mg/dL (9-16); Calcium 8.8 mg/dL (8.4-10.2); Carbon Dioxide 24 mmol/L (22-29); Chloride 101 mmol/L (96-108); Creatinine Clr Calc Pharmacy 159.8; Estimated Glomerular Filt Rate > 60; Glucose Random 332 mg/dL (60-115); Magnesium 1.9 mg/dL (1.6-2.6); Sodium 133 mmol/L (135-145); Total Protein 7.4 g/dL (6.5-8.0); Troponin-I High Sensitivity < 3.5 ng/L (<3.5-17.0)
[2020-04-16 18:50] VITALS: BP 122/76; PULSE 87; RESP 18; TEMP 37.1; O2SAT 100
== END 2020-04-16 19:48 | disposition home or self-care (01) ==
PROVIDERS: Physician Assistant; Emergency Provider Emergency Medicine
DX: R53.1 Weakness (principal); G62.9 Polyneuropathy, unspecified; E11.9 Type 2 diabetes mellitus without complications; Z79.84 Long term (current) use of oral hypoglycemic drugs
CPT/HCPCS: 36415; 70450; 80053; 81001; 83735; 84484; 85025; 85610; 85730; 93005; 96360; 99285

== ENCOUNTER 2020-05-28 14:07 | Emergency (ER) | payer MEDICAID, SELFPAY ==
--- NOTE | ~2020-05-28 | CT_ITS ---
EXAMINATION: CT ABDOMEN AND PELVIS WITH CONTRAST CLINICAL INFORMATION: Bilateral lower quadrant pain COMPARISON: CT abdomen pelvis 01/07/2020 TECHNIQUE: Multidetector volumetric images were obtained from the superior aspect of the liver through the pubic symphysis following administration 85 mL of Omnipaque 350 intravenous contrast. Sagittal and coronal reformatted images were obtained on the technologist's workstation. Oral contrast: No This CT examination was performed using dose optimization techniques as appropriate, variously including the following: *Automated exposure control *Adjustment of mA and/or kV according to patient size (this includes techniques or standardized protocols for targeted exams where dose is matched to indication/reason for exam; i.e. extremities or head) *Use of iterative reconstruction technique DLP: 460 mGy-cm FINDINGS: LUNG BASES: The visualized lung bases are unremarkable. LIVER, GALLBLADDER, AND BILIARY TREE: The liver is normal in size, shape, and attenuation. No focal hepatic lesion or biliary ductal dilatation is present. Status post cholecystectomy. PANCREAS: Unremarkable. SPLEEN: Unremarkable. ADRENAL GLANDS: Unremarkable. KIDNEYS AND URETERS: The kidneys are normal in size, shape, and attenuation. 2 tiny hypodensities in the right kidney are unchanged. One measures 6 mm (3:38 and the other 4 mm (3:41 (. Because of their small size, water density cannot be confirmed. Statistically these are almost tiny benign cysts no Hydronephrosis, hydroureter, or calculi seen. No perinephric stranding. BLADDER: Unremarkable. GASTROINTESTINAL TRACT: The small and large bowel are unremarkable. The appendix is unremarkable. ABDOMINAL WALL: No significant hernia is appreciated. Soft tissue density left anterior abdominal wall measuring 1 cm is unchanged. LYMPH NODES: Small inguinal nodes are present but there is no retroperitoneal lymphadenopathy detected. VASCULAR: Unremarkable. PELVIC VISCERA: Unremarkable. A small amount of free fluid is present in the cul-de-sac. Retroverted uterus is present. OSSEOUS STRUCTURES: Unremarkable. CT/CT abdomen pelvis w IV con IMPRESSION: A cause for bilateral acute lower quadrant pain is not found. Incidental note made of cholecystectomy, stable tiny right renal hypodensities, small soft tissue density left anterior abdominal wall unchanged and small amount of probably physiologic free pelvic fluid.
[2020-05-28 16:02] VITALS: BP 140/88; PULSE 112; RESP 18; TEMP 37.1; O2SAT 98; BMI 21.1
[2020-05-28 16:29] LABS: MANUAL DIFF FLAG NO
[2020-05-28 16:38] LABS: Basophils Absolute Auto 0.1 X10*3/uL (0.0-0.2); Basophils Percent Auto 0.5 % (0-2); Eosinophils Absolute Auto 0.1 X10*3/uL (0.0-0.4); Eosinophils Percent Auto 0.7 % (0-4); Hematocrit 32.1 % (37-47); Hemoglobin 9.2 g/dl (12.0-16.0); Imm Gran Abs Auto 0.03 X10*3/uL (0.00-0.03); Imm Gran Pct Auto 0.3 % (0.0-0.4); Lymphocytes Absolute Auto 2.6 X10*3/uL (1.2-4.9); Lymphocytes Percent Auto 25.1 % (20-40); Mean Corpuscular HGB Conc 28.7 g/dl (31.0-35.0); Mean Corpuscular Hemoglobin 19.6 pg (27.0-33.0); Mean Corpuscular Volume 68.3 fL (80-98); Monocytes Absolute Auto 0.9 X10*3/uL (0.1-1.2); Monocytes Percent Auto 8.4 % (2-11); Neutrophils Absolute Auto 6.8 X10*3/uL (2.0-8.3); Platelet Count 470 X10*3/uL (160-400); Red Cell Distribution Width 17.6 % (11.0-16.0); White Blood Count 10.4 X10*3/uL (4.8-10.8)
[2020-05-28 16:40] LABS: Glucose Urine UA >=1000 MG/DL (NEG); Leukocyte Esterase Urine NEG (NEG); Nitrite Urine NEG (NEG); PH 6.5 (5.0-8.0); Specific Gravity - Urine 1.015 (1.005-1.025); Urine Blood NEG (NEG); Urine Ketones 15 MG/DL (NEG); Urine Protein NEG (NEG-TRACE)
[2020-05-28 16:41] LABS: Appearance Urine HAZY; Color Urine STRAW
[2020-05-28 16:42] LABS: UPreg QC Valid YES; Urine Pregnancy NEGATIVE (NEGATIVE)
[2020-05-28 16:52] LABS: Alanine Aminotransferase 11 U/L (0-31); Albumin Level 4.2 g/dL (3.5-5.0); Alkaline Phosphatase 91 U/L (39-117); Anion Gap 16 (12-20); Aspartate Amino Transferase 10 U/L (5-31); Bilirubin Total 0.5 mg/dL (0.0-1.0); Blood Urea Nitrogen 6 mg/dL (9-16); Carbon Dioxide 23 mmol/L (22-29); Chloride 100 mmol/L (96-108); Creatinine Clr Calc Pharmacy 90.1; Estimated Glomerular Filt Rate > 60; Glucose Random 347 mg/dL (60-115); Potassium 3.6 mmol/L (3.3-5.1); Sodium 135 mmol/L (135-145); Total Protein 8.2 g/dL (6.5-8.0)
[2020-05-28 17:14] LABS: RBC Urine 0 /HPF (0)
[2020-05-28 17:15] LABS: Bacteria Urine TRACE /LPF; Squamous Epithelial Cell Urine 4+ /LPF
[2020-05-28 18:38] VITALS: BP 136/95; PULSE 106; RESP 16; O2SAT 99
--- NOTE | 2020-05-28 18:40 | ED_ITS ---
HPI - Abdominal Pain General Chief Complaint: Abdominal Pain Stated Complaint: abd pain Time Seen by Provider: 05/28/20 18:31 Source: patient Mode of arrival: ambulatory Limitations: no limitations History of Present Illness HPI narrative: pt comes to the Ed c/o bilateral lower quadrant pain. Started 2 days ago. Patient states the pain radiates towards her back. On both sides. Patient denies flank pain, no dysuria, no vomiting diarrhea or constipation. Patient states her last menstrual period was May 13. Patient denies vaginal bleeding or discharge. MD elicited complaint: abdominal pain Related Data Home Medications Medication Instructions Recorded Confirmed metformin 1,000 mg PO BID 01/07/20 01/07/20 Previous Rx's Medication Instructions Recorded cephalexin [Keflex] 500 mg PO Q6H 10 Days #40 cap 01/07/20 oxycodone-acetaminophen [Percocet] 1 tab PO Q6H PRN #10 tab 01/07/20 phenazopyridine [Pyridium] 100 mg PO TID PRN #10 tab 01/07/20 Allergies Allergy/AdvReac Type Severity Reaction Status Date / Time iron dextran complex AdvReac Intermediate SOB, Verified 05/28/20 16:02 [IRON DEXTRAN COMPLEX] COUGHING, FLUSHING, Review of Systems Review of Systems Constitutional : No Weight loss, No Fever, No Chills, No Night Sweats, No Fatigue, No Malaise ENT/Mouth : No Hearing loss, No Ear Pain, No Nasal Congestion, No Sinus Pain, No Hoarseness, No sore throat, No Rhinorrhea, No Swallowing Difficulty Eyes: No Eye Pain, No Swelling, No Redness, No Foreign Body, No Discharge, No Vision Changes Cardiovascular : No Chest Pain, No SOB, No Dyspnea on Exertion, No Orthopnea, No Edema, No Palpitations Respiratory : No Cough, No Sputum, No Wheezing, No Smoke Exposure, No Dyspnea Gastrointestinal : No Nausea, No Vomiting, No Diarrhea, No Constipation, c omplaining of bilateral lower quadrant pain for 2 days, No Hematochezia, No Melena Genitourinary : Complaining of how her menstrual periods twice in April., No Dysuria, No Urinary Frequency, No Hematuria, No Urinary Incontinence, No Urgency, No Flank Pain, No Urinary Flow Changes, No Hesitancy Musculoskeletal : No joint pain, No Myalgias, No Joint Swelling Skin : No Skin Lesions, No rash Neuro : No Weakness, No Numbness, No Paresthesias, No Loss of Consciousness, No Dizziness, No Headache Psych : No Anxiety/Panic, No Depression, No SI/HI/AH/VH, No Social Issues, Heme/Lymph: No Bruising, No Bleeding,No Lymphadenopathy Endocrine : No Polyuria, No Polydipsia, No Temperature Intolerance Physical Exam Vital Signs: Vital Signs: Last Vital Signs Temp 98.6 F 05/28/20 20:00 Pulse 98 05/28/20 22:00 Resp 18 05/28/20 22:00 BP 137/92 H 05/28/20 22:00 Pulse Ox 100 05/28/20 22:00 Body Mass Index 21.1 Appearance: Alert. Oriented X3. No acute distress. Well appearing, talking on the phone Eyes: Pupils equal, round and reactive to light. ENT: Pharynx normal. Neck: Normal inspection. Neck supple. No lymph nodes noted. No crepitus CVS: Normal heart rate and rhythm. Pulses normal. Normal S1 and S2 Respiratory: No respiratory distress. Breath sounds normal. No Wheezing. No rales Abdomen: Soft , complaining of tenderness to deep palpation over the right and left quadrants. No rigidity. No distention Skin: Skin warm and dry. Normal skin color. Normal skin turgor. Extremities: No lower extremity edema. No lower extremity edema. No Lacerations. No Rash Neuro: Oriented X 3. No motor deficit. No sensory deficit. Moving all extermities. No slurred speech. Course Course Course Narrative: I discussed the labs and imaging with the patient, no acute finding. Patient instructed to follow-up with the primary physician. Patient has a hemoglobin of 9.2, which is chronic for the patient. Patient's blood sugar is 347, patient received 10 units of insulin and IV fluids. Denying gap is closed, DKA not suspected this time, ketones negative. Patient's glucose 180. MDM - Abdominal Pain Lab Data Result diagrams: 05/28/20 16:20 05/28/20 16:20 Labs: Lab Results 05/28/20 05/28/20 05/28/20 Range/Units 16:20 16:20 16:20 WBC 10.4 (4.8-10.8) X10*3/uL RBC 4.70 (4.20-5.50) X10*6/uL Hgb 9.2 L (12.0-16.0) g/dl Hct 32.1 L (37-47) % MCV 68.3 L (80-98) fL MCH 19.6 L (27.0-33.0) pg MCHC 28.7 L (31.0-35.0) g/dl RDW 17.6 H (11.0-16.0) % Plt Count 470 H D (160-400) X10*3/uL MPV 10.0 (9.4-12.3) fL Immature Gran % (Auto) 0.3 (0.0-0.4) % Neut % (Auto) 65.0 (45-73) % Lymph % (Auto) 25.1 (20-40) % [place] % (Auto) 8.4 (2-11) % Eos % (Auto) 0.7 (0-4) % Baso % (Auto) 0.5 (0-2) % Lymph # (Auto) 2.6 (1.2-4.9) X10*3/uL [place] # (Auto) 0.9 (0.1-1.2) X10*3/uL Eos # (Auto) 0.1 (0.0-0.4) X10*3/uL Baso # (Auto) 0.1 (0.0-0.2) X10*3/uL Abs Immat Gran (auto) 0.03 (0.00-0.03) X10*3/uL Absolute Neuts (auto) 6.8 (2.0-8.3) X10*3/uL Absolute Nucleated RBC 0.000 (0.0-0.012) X10*3/uL Nucleated RBC % (auto) 0.0 (0.0-0.2) /100WBC Hold Blue Top SEE NOTE Sodium (135-145) mmol/L Potassium (3.3-5.1) mmol/L Chloride (96-108) mmol/L Carbon Dioxide (22-29) mmol/L Anion Gap (12-20) BUN (9-16) mg/dL Creatinine (0.5-1.4) mg/dL Estim Creat Clear Calc Estimated GFR POC Glucose (60-115) mg/dL Random Glucose (60-115) mg/dL Calcium (8.4-10.2) mg/dL Total Bilirubin (0.0-1.0) mg/dL AST (5-31) U/L ALT (0-31) U/L Alkaline Phosphatase (39-117) U/L Total Protein (6.5-8.0) g/dL Albumin (3.5-5.0) g/dL Urine Color STRAW Urine Appearance HAZY Urine pH 6.5 (5.0-8.0) Ur Specific [place] 1.015 (1.005-1.025) Urine Protein NEG (NEG-TRACE) MG/DL Urine Glucose (UA) >=1000 H (NEG) MG/DL Urine Ketones 15 (NEG) MG/DL Urine Blood NEG (NEG) Urine Nitrite NEG (NEG) Ur Leukocyte Esterase NEG (NEG) Urine RBC 0 (0) /HPF Urine WBC 1-4 (0-4) /HPF Ur Squamous Epith Cells 4+ /LPF Urine Bacteria TRACE /LPF Urine Test (NEGATIVE) Acetone, Qual (Negative) 05/28/20 05/28/20 05/28/20 Range/Units 16:20 16:20 22:37 WBC (4.8-10.8) X10*3/uL RBC (4.20-5.50) X10*6/uL Hgb (12.0-16.0) g/dl Hct (37-47) % MCV (80-98) fL MCH (27.0-33.0) pg MCHC (31.0-35.0) g/dl RDW (11.0-16.0) % Plt Count (160-400) X10*3/uL MPV (9.4-12.3) fL Immature Gran % (Auto) (0.0-0.4) % Neut % (Auto) (45-73) % Lymph % (Auto) (20-40) % [place] % (Auto) (2-11) % Eos % (Auto) (0-4) % Baso % (Auto) (0-2) % Lymph # (Auto) (1.2-4.9) X10*3/uL [place] # (Auto) (0.1-1.2) X10*3/uL Eos # (Auto) (0.0-0.4) X10*3/uL Baso # (Auto) (0.0-0.2) X10*3/uL Abs Immat Gran (auto) (0.00-0.03) X10*3/uL Absolute Neuts (auto) (2.0-8.3) X10*3/uL Absolute Nucleated RBC (0.0-0.012) X10*3/uL Nucleated RBC % (auto) (0.0-0.2) /100WBC Hold Blue Top Sodium 135 (135-145) mmol/L Potassium 3.6 (3.3-5.1) mmol/L Chloride 100 (96-108) mmol/L Carbon Dioxide 23 (22-29) mmol/L Anion Gap 16 (12-20) BUN 6 L (9-16) mg/dL Creatinine 0.81 (0.5-1.4) mg/dL Estim Creat Clear Calc 90.1 Estimated GFR > 60 POC Glucose 180 H (60-115) mg/dL Random Glucose 347 H (60-115) mg/dL Calcium 9.0 (8.4-10.2) mg/dL Total Bilirubin 0.5 (0.0-1.0) mg/dL AST 10 (5-31) U/L ALT 11 (0-31) U/L Alkaline Phosphatase 91 (39-117) U/L Total Protein 8.2 H (6.5-8.0) g/dL Albumin 4.2 (3.5-5.0) g/dL Urine Color Urine Appearance Urine pH (5.0-8.0) Ur Specific [place] (1.005-1.025) Urine Protein (NEG-TRACE) MG/DL Urine Glucose (UA) (NEG) MG/DL Urine Ketones (NEG) MG/DL Urine Blood (NEG) Urine Nitrite (NEG) Ur Leukocyte Esterase (NEG) Urine RBC (0) /HPF Urine WBC (0-4) /HPF Ur Squamous Epith Cells /LPF Urine Bacteria /LPF Urine Test NEGATIVE (NEGATIVE) Acetone, Qual Negative (Negative) Imaging Data CT scan - abdomen: Radiologist's impression: FINDINGS: LUNG BASES: The visualized lung bases are unremarkable. LIVER, GALLBLADDER, AND BILIARY TREE: The liver is normal in size, shape, and attenuation. No focal hepatic lesion or biliary ductal dilatation is present. Status post cholecystectomy. PANCREAS: Unremarkable. SPLEEN: Unremarkable. ADRENAL GLANDS: Unremarkable. KIDNEYS AND URETERS: The kidneys are normal in size, shape, and attenuation. 2 tiny hypodensities in the right kidney are unchanged. One measures 6 mm (3:38 and the other 4 mm (3:41 (. Because of their small size, water density cannot be confirmed. Statistically these are almost tiny benign cysts no Hydronephrosis, hydroureter, or calculi seen. No perinephric stranding. BLADDER: Unremarkable. GASTROINTESTINAL TRACT: The small and large bowel are unremarkable. The appendix is unremarkable. ABDOMINAL WALL: No significant hernia is appreciated. Soft tissue density left anterior abdominal wall measuring 1 cm is unchanged. LYMPH NODES: Small inguinal nodes are present but there is no retroperitoneal lymphadenopathy detected. VASCULAR: Unremarkable. PELVIC VISCERA: Unremarkable. A small amount of free fluid is present in the cul-de-sac. Retroverted uterus is present. OSSEOUS STRUCTURES: Unremarkable. CT/CT abdomen pelvis w con IMPRESSION: A cause for bilateral acute lower quadrant pain is not found. Incidental note made of cholecystectomy, stable tiny right renal hypodensities, small soft tissue density left anterior abdominal wall unchanged and small amount of probably physiologic free pelvic fluid. Discharge Plan Discharge Clinical Impression: Acute hyperglycemia Abdominal pain Qualifiers: Abdominal location: unspecified location Qualified Code(s): R10.9 - Unspecified abdominal pain Patient Disposition: Home, Self-Care Instructions: Abdominal Pain (ED), Diabetic Hyperglycemia (ED) Additional Instructions: Please follow-up with your primary care physician tomorrow. If you have any worsening or new symptoms, please return to the emergency room or call 911 Prescriptions: No Action metformin 1,000 mg Tablet 1,000 mg PO BID RF: 0 cephalexin [Keflex] 500 mg capsule 500 mg PO Q6H 10 Days Qty: 40 RF: 0 phenazopyridine [Pyridium] 100 mg tablet 100 mg PO TID PRN (Reason: pain) Qty: 10 RF: 0 oxycodone-acetaminophen [Percocet] 5-325 mg tablet 1 tab PO Q6H PRN (Reason: pain) Qty: 10 RF: 0 PMFSH Past Medical History Medical History Anemia Diabetes Migraine Neuropathy Rheumatoid arthritis Surgical History H/O tubal ligation Hx of cholecystectomy Social History Social History Alcohol intake: current Alcohol intake frequency: a few times a month Smoking Status: Current every day smoker Smoked in Last 30 Days: Yes Use of substances other than those prescribed or required for medical reasons: No Any prior treatment program specific to substance use: No Advance Directives: No Advance Directives Information Provided: Yes
[2020-05-28] MEDS: iohexoL 350 MG/ML 100 ML INFUS..BTL IV (18:57)
[2020-05-28] MEDS: Ketorolac Tromethamine 30 MG/ML VIAL IVPUSH (18:59)
[2020-05-28 19:42] VITALS: BP 131/85; PULSE 93; RESP 20; TEMP 37.1; O2SAT 99
[2020-05-28 20:00] VITALS: BP 136/94; PULSE 102; RESP 18; TEMP 37; O2SAT 100
[2020-05-28] MEDS: 0.9 % Sodium Chloride 1,000 ML 999 ML IVCONT (20:57)
[2020-05-28] MEDS: Insulin Regular, Human 100 UNIT/ML 3 ML VIAL 10 UNIT IVPUSH (20:58)
[2020-05-28 21:05] LABS: Acetone, serum QL Negative (Negative)
[2020-05-28 22:00] VITALS: BP 137/92; PULSE 98; RESP 18; O2SAT 100
[2020-05-28 22:43] LABS: Glucose, Whole Blood 180 mg/dL (60-115)
== END 2020-05-28 22:58 | disposition home or self-care (01) ==
PROVIDERS: Emergency Provider Emergency Medicine; PCP Internal Medicine
DX: R10.30 Lower abdominal pain, unspecified (principal); E11.65 Type 2 diabetes mellitus with hyperglycemia; Z79.4 Long term (current) use of insulin; Z90.49 Acquired absence of other specified parts of digestive tract; Z98.51 Tubal ligation status
CPT/HCPCS: 36415; 74177; 80053; 81001; 81025; 82009; 82947; 85025; 96361; 96374; 96375; 99284; J1885; Q9967

== ENCOUNTER 2020-05-31 18:19 | Emergency (ER) | payer MEDICAID, SELFPAY ==
--- NOTE | ~2020-05-31 | US_ITS ---
EXAMINATION: ULTRASOUND PELVIS, COMPLETE CLINICAL INFORMATION: Bilateral adnexal pain. Evaluate for ovarian torsion and/or adnexal cyst/mass. Last menstrual period 05/14/2020 COMPARISON: None TECHNIQUE: Transabdominal and transvaginal imaging of the pelvic viscera was performed utilizing grayscale and color Doppler technique with spectral analysis FINDINGS: Uterus normal in size and configuration measuring 8.6 x 6.4 x 6.3 cm. Endometrial signature appears somewhat thickened on the transvaginal images, however assessment is limited by obliquity. A measurement of 2.7 cm is likely spurious. Ovaries normal in size and appearance measuring 2.2 x 1.9 x 2.3 cm on the right and 3.5 x 2.2 x 1.3 cm on the left. There is a complicated structure within the left ovary measuring 2.4 x 1.6 x 1.2 cm most compatible with a hemorrhagic cyst. Normal arterial and venous waveforms present within each ovary. No free fluid. US/US pelvic ovarian doppler IMPRESSION: No ovarian torsion. Left ovarian hemorrhagic cyst measuring 2.4 cm. Endometrial signature is not well, or accurately measured on the images provided. Recommend follow-up pelvic ultrasound in 6 or 10 weeks.
--- NOTE | ~2020-05-31 | US_ITS ---
EXAMINATION: ULTRASOUND PELVIS, COMPLETE CLINICAL INFORMATION: Bilateral adnexal pain. Evaluate for ovarian torsion and/or adnexal cyst/mass. Last menstrual period 05/14/2020 COMPARISON: None TECHNIQUE: Transabdominal and transvaginal imaging of the pelvic viscera was performed utilizing grayscale and color Doppler technique with spectral analysis FINDINGS: Uterus normal in size and configuration measuring 8.6 x 6.4 x 6.3 cm. Endometrial signature appears somewhat thickened on the transvaginal images, however assessment is limited by obliquity. A measurement of 2.7 cm is likely spurious. Ovaries normal in size and appearance measuring 2.2 x 1.9 x 2.3 cm on the right and 3.5 x 2.2 x 1.3 cm on the left. There is a complicated structure within the left ovary measuring 2.4 x 1.6 x 1.2 cm most compatible with a hemorrhagic cyst. Normal arterial and venous waveforms present within each ovary. No free fluid. US/US pelvic complete IMPRESSION: No ovarian torsion. Left ovarian hemorrhagic cyst measuring 2.4 cm. Endometrial signature is not well, or accurately measured on the images provided. Recommend follow-up pelvic ultrasound in 6 or 10 weeks.
--- NOTE | ~2020-05-31 | US_ITS ---
EXAMINATION: ULTRASOUND PELVIS, COMPLETE CLINICAL INFORMATION: Bilateral adnexal pain. Evaluate for ovarian torsion and/or adnexal cyst/mass. Last menstrual period 05/14/2020 COMPARISON: None TECHNIQUE: Transabdominal and transvaginal imaging of the pelvic viscera was performed utilizing grayscale and color Doppler technique with spectral analysis FINDINGS: Uterus normal in size and configuration measuring 8.6 x 6.4 x 6.3 cm. Endometrial signature appears somewhat thickened on the transvaginal images, however assessment is limited by obliquity. A measurement of 2.7 cm is likely spurious. Ovaries normal in size and appearance measuring 2.2 x 1.9 x 2.3 cm on the right and 3.5 x 2.2 x 1.3 cm on the left. There is a complicated structure within the left ovary measuring 2.4 x 1.6 x 1.2 cm most compatible with a hemorrhagic cyst. Normal arterial and venous waveforms present within each ovary. No free fluid. US/US transvaginal IMPRESSION: No ovarian torsion. Left ovarian hemorrhagic cyst measuring 2.4 cm. Endometrial signature is not well, or accurately measured on the images provided. Recommend follow-up pelvic ultrasound in 6 or 10 weeks.
[2020-05-31 19:55] VITALS: BP 151/92; PULSE 109; RESP 20; TEMP 37.3; O2SAT 100; BMI 21.1
[2020-05-31 20:23] LABS: MANUAL DIFF FLAG NO
--- NOTE | 2020-05-31 20:24 | PC.NURSE ---
THIS NURSE TO BEDSIDE WITH DR DELCID FOR PELVIC EXAM. NO RASH NOTED. PATIENT DENIES PAIN DURING PALPATION EXTERNALLY. PATIENT REPORTS PAIN ON PALPATION TO SUPRAPUBIC REGION.
[2020-05-31 20:26] LABS: Basophils Percent Auto 0.3 % (0-2); Eosinophils Absolute Auto 0.1 X10*3/uL (0.0-0.4); Hematocrit 33.3 % (37-47); Hemoglobin 9.5 g/dl (12.0-16.0); Imm Gran Abs Auto 0.06 X10*3/uL (0.00-0.03); Imm Gran Pct Auto 0.5 % (0.0-0.4); Lymphocytes Percent Auto 25.2 % (20-40); Mean Corpuscular HGB Conc 28.5 g/dl (31.0-35.0); Mean Corpuscular Hemoglobin 19.6 pg (27.0-33.0); Mean Corpuscular Volume 68.7 fL (80-98); Mean Platelet Volume 10.1 fL (9.4-12.3); Monocytes Absolute Auto 0.9 X10*3/uL (0.1-1.2); Monocytes Percent Auto 7.2 % (2-11); Neutrophils Absolute Auto 7.7 X10*3/uL (2.0-8.3); Neutrophils Percent Auto 65.8 % (45-73); Platelet Count 442 X10*3/uL (160-400); Red Blood Count 4.85 X10*6/uL (4.20-5.50); Red Cell Distribution Width 18.2 % (11.0-16.0); White Blood Count 11.7 X10*3/uL (4.8-10.8)
[2020-05-31 20:41] LABS: Glucose Urine UA >=1000 MG/DL (NEG); Leukocyte Esterase Urine NEG (NEG); Nitrite Urine NEG (NEG); PH 5.5 (5.0-8.0); Urine Blood NEG (NEG); Urine Ketones NEG (NEG); Urine Protein NEG (NEG-TRACE)
[2020-05-31 20:42] LABS: Appearance Urine CLEAR; Color Urine YELLOW
[2020-05-31 20:48] LABS: Bacteria Urine TRACE /LPF; RBC Urine 0 /HPF (0); Squamous Epithelial Cell Urine TRACE /LPF; WBC Urine 0 /HPF (0-4)
[2020-05-31 20:52] LABS: Alanine Aminotransferase 10 U/L (0-31); Albumin Level 4.3 g/dL (3.5-5.0); Alkaline Phosphatase 85 U/L (39-117); Anion Gap 13 (12-20); Aspartate Amino Transferase 10 U/L (5-31); Bilirubin Total 0.2 mg/dL (0.0-1.0); Blood Urea Nitrogen 8 mg/dL (9-16); Calcium 9.9 mg/dL (8.4-10.2); Carbon Dioxide 25 mmol/L (22-29); Chloride 102 mmol/L (96-108); Estimated Glomerular Filt Rate > 60; Glucose Random 328 mg/dL (60-115); Potassium 4.2 mmol/L (3.3-5.1); Sodium 136 mmol/L (135-145); Total Protein 8.4 g/dL (6.5-8.0)
--- NOTE | 2020-05-31 21:03 | ED.FEMALEGU ---
HPI - Female Genitourinary General Chief complaint: Urogenital-Female <Cristino Verma MD - Last Filed: 05/31/20 21:13> Stated complaint: ABD PAIN <Cristino Verma MD - Last Filed: 05/31/20 21:13> Time Seen by Provider: 05/31/20 20:17 <Cristino Verma MD - Last Filed: 05/31/20 21:13> Source: patient <Cristino Verma MD - Last Filed: 05/31/20 21:13> Mode of arrival: ambulatory <Cristino Verma MD - Last Filed: 05/31/20 21:13> Limitations: no limitations <Cristino Verma MD - Last Filed: 05/31/20 21:13> History of Present Illness HPI Narrative: 40-year-old female presented with lower abdominal pain and burning sensation to the genitalia, symptoms started 5 days ago and patient was seen in the emergency department with negative workup for abdominal pain including CT of the abdomen and pelvis, localized to the suprapubic area radiating to the right flank area, pain is moderate 5/10 described as burning sensation, associated with burning in the vaginal hernia with no discharge or bleed, patient declined any vaginal discharge or bleed, sexually active with 1 partner patient is questioning may be with somebody else recently. <Cristino Vrema MD - Last Filed: 05/31/20 21:13> Related Data Home medications: Home Medications Medication Instructions Recorded Confirmed metformin 1,000 mg PO BID 01/07/20 01/07/20 Previous Rx's Medication Instructions Recorded cephalexin [Keflex] 500 mg PO Q6H 10 Days #40 cap 01/07/20 oxycodone-acetaminophen [Percocet] 1 tab PO Q6H PRN #10 tab 01/07/20 phenazopyridine [Pyridium] 100 mg PO TID PRN #10 tab 01/07/20 doxycycline hyclate 100 mg PO BID #14 cap 05/31/20 ibuprofen 600 mg PO Q6-8H PRN #30 tab 05/31/20 metronidazole [Flagyl] 500 mg PO BID #7 tab 05/31/20 <MD Jimmy Fragoso Last Filed: 05/31/20 21:13> Allergies/Adverse reactions: Allergies Allergy/AdvReac Type Severity Reaction Status Date / Time iron dextran complex AdvReac Intermediate SOB, Verified 05/31/20 19:55 [IRON DEXTRAN COMPLEX] COUGHING, FLUSHING, <Cristino Verma MD - Last Filed: 05/31/20 21:13> Review of Systems Review of Systems: All other systems are reviewed and are negative Constitutional: Reports as per HPI and Reports no additional constitutional complaints Eyes: Reports as per HPI and Reports no additional eye complaints Reports system reviewed and no additional complaints, except as documented Cardiovascular: Reports as per HPI and Reports no additional cardiovascular complaints Respiratory: Reports as per HPI and Reports no additional respiratory complaints Gastrointestinal: Reports as per HPI and Reports no additional gastrointestinal complaints Genitourinary: Reports no additional female genitourinary complaints Musculoskeletal: Reports no additional musculoskeletal complaints Skin/Breast: Reports system reviewed and no additional complaints, except as docu Psychiatric: Reports no additional psychiatric complaints Endocrine: Reports no additional endocrine complaints Hematologic/Lymphatic: Reports no additional hematologic/lymphatic complaints Allergic/Immunologic: Reports no additional allergic/immunologic complaints Reports system reviewed and no additional complaints, except as documented and Reports Abnormal speech present <Cristino Verma MD - Last Filed: 05/31/20 21:13> PMFSH Past Medical History Medical History: Medical History Anemia Diabetes Migraine Neuropathy Rheumatoid arthritis <Cristino Verma MD - Last Filed: 05/31/20 21:13> Surgical History: Surgical History H/O tubal ligation Hx of cholecystectomy <Cristino Verma MD - Last Filed: 05/31/20 21:13> Social History Social History: Social History Alcohol intake: current Alcohol intake frequency: a few times a month Smoking Status: Current every day smoker Advance Directives: No Advance Directives Information Provided: Yes <Cristino Verma MD - Last Filed: 05/31/20 21:13> Physical Exam Vital Signs: Vital Signs: Last Vital Signs Temp 99.2 F 05/31/20 22:02 Pulse 98 05/31/20 22:02 Resp 18 05/31/20 22:02 BP 137/87 05/31/20 22:02 Pulse Ox 95 05/31/20 22:02 Body Mass Index 21.1 Vital signs have been reviewed as appeared to be correct. Blood pressure hypertensive (within normal value of the patient). Heart rate is high (patient with history of tachycardia).. Respiration rate normal. Temperature normal. Oxygen saturation normal. <Cristino Verma MD - Last Filed: 05/31/20 21:13> Vital Signs: Last Vital Signs Temp 99.2 F 05/31/20 22:02 Pulse 98 05/31/20 22:02 Resp 18 05/31/20 22:02 BP 137/87 05/31/20 22:02 Pulse Ox 95 05/31/20 22:02 Body Mass Index 21.1 <Yovany Wells MD - Last Filed: 05/31/20 22:27> Appearance: Alert. Oriented X3. No acute distress. Head: Normal external exam. Normocephalic. Atraumatic. No Dao signs noted. No raccoon eyes noted Eyes: PERRLA. EOMI. Conjunctiva and sclera normal. Eyelids normal. ENT: TM's Normal. Pharynx normal. Uvula midline. Moist mucous membranes. No trismus noted. No drooling noted. No muffled voice noted. Neck: Normal inspection. Neck supple. FROM. No adenopathy. Thyroid Normal. No meningeal signs. No neck mass noted. CVS: Normal heart rate and rhythm. Heart sound normal. No murmurs noted. Pulses normal throughout. Respiratory: No respiratory distress. Painless inspiration. Breath sounds normal. No wheezes/rales/rhonchi noted. Chest nontender. No accessory muscle usage noted or decreased air movement noted. Abdomen: Soft and nontender. Bowel sounds normal in all 4 quadrants. No distention noted. No organomegaly noted. No visible injury noted. Pelvic exam: Normal inspection, no rashes, no discharge, no adnexal tenderness. Back: No CVA tenderness. Full range of motion noted. Skin: Skin warm and dry. Normal skin color. Normal skin turgor. No rashes/lesions/lacerations noted. Extremities: No lower extremity edema. Extremities exhibit normal range of motion. Extremities nontender. Neuro: Oriented X 3. No motor deficit. No sensory deficit. Reflexes normal. <Cristino Verma MD - Last Filed: 05/31/20 21:13> Course Course Course Narrative: Assessment and plan. Five days of lower abdominal pain, mild tenderness in the lower abdomen (patient had a recent negative CT), patient had a slight leukocytosis, labs showing hyperglycemia patient is known from her previous labs with uncontrolled diabetes. Patient was instructed to follow-up with her PCP for further evaluation of her hyperglycemia. Patient has been tested for STDs results still pending. Pelvic ultrasound results still pending will discharge home if ultrasound is negative (Dr. Wells to check the results of the ultrasound). <Cristino Verma MD - Last Filed: 05/31/20 21:13> MDM - Female Genitourinary MDM Narrative Medical decision making narrative: Patient with lower abdominal pain for last 2 weeks ultrasound showed left 2.4 cm hemorrhagic ovarian cyst. Will treat her with NSAID for the pain. Patient also complaining of possible STD exposure exposure with whitish watery discharge with fishy smell. Pelvic examination was done by Dr. Verma will treat her prophylactically for STDs with Rocephin Flagyl and doxycycline <Yovany Wells MD - Last Filed: 05/31/20 22:27> Lab Data Attestation: I reviewed the patient's lab results. <Cristino Verma MD - Last Filed: 05/31/20 21:13> I reviewed the patient's lab results. <Yovany Wells MD - Last Filed: 05/31/20 22:27> Result diagrams: : 05/31/20 20:15 05/31/20 20:15 <Cristino Verma MD - Last Filed: 05/31/20 21:13> Labs: Lab Results 05/31/20 05/31/20 05/31/20 Range/Units 20:10 20:15 20:15 WBC 11.7 H (4.8-10.8) X10*3/uL RBC 4.85 (4.20-5.50) X10*6/uL Hgb 9.5 L (12.0-16.0) g/dl Hct 33.3 L (37-47) % MCV 68.7 L (80-98) fL MCH 19.6 L (27.0-33.0) pg MCHC 28.5 L (31.0-35.0) g/dl RDW 18.2 H (11.0-16.0) % Plt Count 442 H (160-400) X10*3/uL MPV 10.1 (9.4-12.3) fL Immature Gran % (Auto) 0.5 H (0.0-0.4) % Neut % (Auto) 65.8 (45-73) % Lymph % (Auto) 25.2 (20-40) % [place] % (Auto) 7.2 (2-11) % Eos % (Auto) 1.0 (0-4) % Baso % (Auto) 0.3 (0-2) % Lymph # (Auto) 3.0 (1.2-4.9) X10*3/uL [place] # (Auto) 0.9 (0.1-1.2) X10*3/uL Eos # (Auto) 0.1 (0.0-0.4) X10*3/uL Baso # (Auto) 0.0 (0.0-0.2) X10*3/uL Abs Immat Gran (auto) 0.06 H (0.00-0.03) X10*3/uL Absolute Neuts (auto) 7.7 (2.0-8.3) X10*3/uL Absolute Nucleated RBC 0.000 (0.0-0.012) X10*3/uL Nucleated RBC % (auto) 0.0 (0.0-0.2) /100WBC Hold Blue Top SEE NOTE Sodium (135-145) mmol/L Potassium (3.3-5.1) mmol/L Chloride (96-108) mmol/L Carbon Dioxide (22-29) mmol/L Anion Gap (12-20) BUN (9-16) mg/dL Creatinine (0.5-1.4) mg/dL Estim Creat Clear Calc Estimated GFR Random Glucose (60-115) mg/dL Calcium (8.4-10.2) mg/dL Total Bilirubin (0.0-1.0) mg/dL AST (5-31) U/L ALT (0-31) U/L Alkaline Phosphatase (39-117) U/L Total Protein (6.5-8.0) g/dL Albumin (3.5-5.0) g/dL Urine Color YELLOW Urine Appearance CLEAR Urine pH 5.5 (5.0-8.0) Ur Specific [place] 1.020 (1.005-1.025) Urine Protein NEG (NEG-TRACE) MG/DL Urine Glucose (UA) >=1000 H (NEG) MG/DL Urine Ketones NEG (NEG) MG/DL Urine Blood NEG (NEG) Urine Nitrite NEG (NEG) Ur Leukocyte Esterase NEG (NEG) Urine RBC 0 (0) /HPF Urine WBC 0 (0-4) /HPF Ur Squamous Epith Cells TRACE /LPF Urine Bacteria TRACE /LPF 05/31/20 Range/Units 20:15 WBC (4.8-10.8) X10*3/uL RBC (4.20-5.50) X10*6/uL Hgb (12.0-16.0) g/dl Hct (37-47) % MCV (80-98) fL MCH (27.0-33.0) pg MCHC (31.0-35.0) g/dl RDW (11.0-16.0) % Plt Count (160-400) X10*3/uL MPV (9.4-12.3) fL Immature Gran % (Auto) (0.0-0.4) % Neut % (Auto) (45-73) % Lymph % (Auto) (20-40) % [place] % (Auto) (2-11) % Eos % (Auto) (0-4) % Baso % (Auto) (0-2) % Lymph # (Auto) (1.2-4.9) X10*3/uL [place] # (Auto) (0.1-1.2) X10*3/uL Eos # (Auto) (0.0-0.4) X10*3/uL Baso # (Auto) (0.0-0.2) X10*3/uL Abs Immat Gran (auto) (0.00-0.03) X10*3/uL Absolute Neuts (auto) (2.0-8.3) X10*3/uL Absolute Nucleated RBC (0.0-0.012) X10*3/uL Nucleated RBC % (auto) (0.0-0.2) /100WBC Hold Blue Top Sodium 136 (135-145) mmol/L Potassium 4.2 (3.3-5.1) mmol/L Chloride 102 (96-108) mmol/L Carbon Dioxide 25 (22-29) mmol/L Anion Gap 13 (12-20) BUN 8 L (9-16) mg/dL Creatinine 0.73 (0.5-1.4) mg/dL Estim Creat Clear Calc 100.0 Estimated GFR > 60 Random Glucose 328 H (60-115) mg/dL Calcium 9.9 D (8.4-10.2) mg/dL Total Bilirubin 0.2 (0.0-1.0) mg/dL AST 10 (5-31) U/L ALT 10 (0-31) U/L Alkaline Phosphatase 85 (39-117) U/L Total Protein 8.4 H (6.5-8.0) g/dL Albumin 4.3 (3.5-5.0) g/dL Urine Color Urine Appearance Urine pH (5.0-8.0) Ur Specific [place] (1.005-1.025) Urine Protein (NEG-TRACE) MG/DL Urine Glucose (UA) (NEG) MG/DL Urine Ketones (NEG) MG/DL Urine Blood (NEG) Urine Nitrite (NEG) Ur Leukocyte Esterase (NEG) Urine RBC (0) /HPF Urine WBC (0-4) /HPF Ur Squamous Epith Cells /LPF Urine Bacteria /LPF <Cristino Verma MD - Last Filed: 05/31/20 21:13> Lab Results 05/31/20 05/31/20 05/31/20 Range/Units 20:10 20:15 20:15 WBC 11.7 H (4.8-10.8) X10*3/uL RBC 4.85 (4.20-5.50) X10*6/uL Hgb 9.5 L (12.0-16.0) g/dl Hct 33.3 L (37-47) % MCV 68.7 L (80-98) fL MCH 19.6 L (27.0-33.0) pg MCHC 28.5 L (31.0-35.0) g/dl RDW 18.2 H (11.0-16.0) % Plt Count 442 H (160-400) X10*3/uL MPV 10.1 (9.4-12.3) fL Immature Gran % (Auto) 0.5 H (0.0-0.4) % Neut % (Auto) 65.8 (45-73) % Lymph % (Auto) 25.2 (20-40) % [place] % (Auto) 7.2 (2-11) % Eos % (Auto) 1.0 (0-4) % Baso % (Auto) 0.3 (0-2) % Lymph # (Auto) 3.0 (1.2-4.9) X10*3/uL [place] # (Auto) 0.9 (0.1-1.2) X10*3/uL Eos # (Auto) 0.1 (0.0-0.4) X10*3/uL Baso # (Auto) 0.0 (0.0-0.2) X10*3/uL Abs Immat Gran (auto) 0.06 H (0.00-0.03) X10*3/uL Absolute Neuts (auto) 7.7 (2.0-8.3) X10*3/uL Absolute Nucleated RBC 0.000 (0.0-0.012) X10*3/uL Nucleated RBC % (auto) 0.0 (0.0-0.2) /100WBC Hold Blue Top SEE NOTE Sodium (135-145) mmol/L Potassium (3.3-5.1) mmol/L Chloride (96-108) mmol/L Carbon Dioxide (22-29) mmol/L Anion Gap (12-20) BUN (9-16) mg/dL Creatinine (0.5-1.4) mg/dL Estim Creat Clear Calc Estimated GFR Random Glucose (60-115) mg/dL Calcium (8.4-10.2) mg/dL Total Bilirubin (0.0-1.0) mg/dL AST (5-31) U/L ALT (0-31) U/L Alkaline Phosphatase (39-117) U/L Total Protein (6.5-8.0) g/dL Albumin (3.5-5.0) g/dL Urine Color YELLOW Urine Appearance CLEAR Urine pH 5.5 (5.0-8.0) Ur Specific [place] 1.020 (1.005-1.025) Urine Protein NEG (NEG-TRACE) MG/DL Urine Glucose (UA) >=1000 H (NEG) MG/DL Urine Ketones NEG (NEG) MG/DL Urine Blood NEG (NEG) Urine Nitrite NEG (NEG) Ur Leukocyte Esterase NEG (NEG) Urine RBC 0 (0) /HPF Urine WBC 0 (0-4) /HPF Ur Squamous Epith Cells TRACE /LPF Urine Bacteria TRACE /LPF 05/31/20 Range/Units 20:15 WBC (4.8-10.8) X10*3/uL RBC (4.20-5.50) X10*6/uL Hgb (12.0-16.0) g/dl Hct (37-47) % MCV (80-98) fL MCH (27.0-33.0) pg MCHC (31.0-35.0) g/dl RDW (11.0-16.0) % Plt Count (160-400) X10*3/uL MPV (9.4-12.3) fL Immature Gran % (Auto) (0.0-0.4) % Neut % (Auto) (45-73) % Lymph % (Auto) (20-40) % [place] % (Auto) (2-11) % Eos % (Auto) (0-4) % Baso % (Auto) (0-2) % Lymph # (Auto) (1.2-4.9) X10*3/uL [place] # (Auto) (0.1-1.2) X10*3/uL Eos # (Auto) (0.0-0.4) X10*3/uL Baso # (Auto) (0.0-0.2) X10*3/uL Abs Immat Gran (auto) (0.00-0.03) X10*3/uL Absolute Neuts (auto) (2.0-8.3) X10*3/uL Absolute Nucleated RBC (0.0-0.012) X10*3/uL Nucleated RBC % (auto) (0.0-0.2) /100WBC Hold Blue Top Sodium 136 (135-145) mmol/L Potassium 4.2 (3.3-5.1) mmol/L Chloride 102 (96-108) mmol/L Carbon Dioxide 25 (22-29) mmol/L Anion Gap 13 (12-20) BUN 8 L (9-16) mg/dL Creatinine 0.73 (0.5-1.4) mg/dL Estim Creat Clear Calc 100.0 Estimated GFR > 60 Random Glucose 328 H (60-115) mg/dL Calcium 9.9 D (8.4-10.2) mg/dL Total Bilirubin 0.2 (0.0-1.0) mg/dL AST 10 (5-31) U/L ALT 10 (0-31) U/L Alkaline Phosphatase 85 (39-117) U/L Total Protein 8.4 H (6.5-8.0) g/dL Albumin 4.3 (3.5-5.0) g/dL Urine Color Urine Appearance Urine pH (5.0-8.0) Ur Specific [place] (1.005-1.025) Urine Protein (NEG-TRACE) MG/DL Urine Glucose (UA) (NEG) MG/DL Urine Ketones (NEG) MG/DL Urine Blood (NEG) Urine Nitrite (NEG) Ur Leukocyte Esterase (NEG) Urine RBC (0) /HPF Urine WBC (0-4) /HPF Ur Squamous Epith Cells /LPF Urine Bacteria /LPF <Yovany Wells MD - Last Filed: 05/31/20 22:27> Discharge Plan Discharge Clinical Impression: Bacterial vaginosis Ovarian cyst Qualifiers: Laterality: left Qualified Code(s): N83.202 - Unspecified ovarian cyst, left side <Cristino Verma MD - Last Filed: 05/31/20 21:13> Patient Disposition: Home, Self-Care <Cristino Verma MD - Last Filed: 05/31/20 21:13> Instructions: Bacterial Vaginosis (ED), Ovarian Cyst (ED), Sexually Transmitted Diseases in Adolescents (ED) <Cristino Verma MD - Last Filed: 05/31/20 21:13> Additional Instructions: Drink plenty of fluids take pain medication as advised Antibiotic for vaginosis as prescribed. Follow-up with the lab results <Cristino Verma MD - Last Filed: 05/31/20 21:13> Prescriptions: New metronidazole [Flagyl] 500 mg tablet 500 mg PO BID Qty: 7 RF: 0 doxycycline hyclate 100 mg capsule 100 mg PO BID Qty: 14 RF: 0 ibuprofen 600 mg tablet 600 mg PO Q6-8H PRN (Reason: pain) Qty: 30 RF: 0 No Action metformin 1,000 mg Tablet 1,000 mg PO BID RF: 0 cephalexin [Keflex] 500 mg capsule 500 mg PO Q6H 10 Days Qty: 40 RF: 0 phenazopyridine [Pyridium] 100 mg tablet 100 mg PO TID PRN (Reason: pain) Qty: 10 RF: 0 oxycodone-acetaminophen [Percocet] 5-325 mg tablet 1 tab PO Q6H PRN (Reason: pain) Qty: 10 RF: 0 <Cristino Verma MD - Last Filed: 05/31/20 21:13> Referrals: Clyde Steiner MD [Primary Care Provider] - 2 days <Cristino Verma MD - Last Filed: 05/31/20 21:13>
[2020-05-31 22:02] VITALS: BP 137/87; PULSE 98; RESP 18; TEMP 37.3; O2SAT 95
[2020-05-31] MEDS: Ketorolac Tromethamine 30 MG/ML VIAL IVPUSH (22:11)
[2020-06-03 03:51] LABS: C. trachomatis RNA TMA NOT DETECTED (NOT DETECTED); N. gonorrhoeae RNA TMA NOT DETECTED (NOT DETECTED)
== END 2020-05-31 22:34 | disposition home or self-care (01) ==
PROVIDERS: Emergency Provider Emergency Medicine; PCP Internal Medicine
DX: N76.0 Acute vaginitis (principal); N83.202 Unspecified ovarian cyst, left side; Z11.3 Encounter for screening for infections with a predominantly sexual mode of transmission; E11.65 Type 2 diabetes mellitus with hyperglycemia; Z79.4 Long term (current) use of insulin
CPT/HCPCS: 36415; 76830; 76856; 80053; 81001; 85025; 87491; 87591; 93975; 96365; 96375; 99284; J1885

== ENCOUNTER 2021-10-16 12:05 | Emergency (ER) | payer MEDICAID, SELFPAY ==
[2021-10-16 12:12] VITALS: BP 126/90; PULSE 93; O2SAT 98
== END 2021-10-16 13:57 | disposition left against medical advice (07) ==
PROVIDERS: Emergency Provider Emergency Medicine
DX: R10.32 Left lower quadrant pain (principal)

== ENCOUNTER 2022-02-12 11:59 | Emergency (ER) | payer MEDICAID, SELFPAY ==
--- NOTE | ~2022-02-12 | CT_ITS ---
EXAMINATION: CT ABDOMEN AND PELVIS WITHOUT CONTRAST CLINICAL INFORMATION: Right lower quadrant pain COMPARISON: Prior CT 05/28/2020 TECHNIQUE: Multidetector volumetric imaging was performed from the superior aspect of the liver through the pubic symphysis. Sagittal and coronal reformatted images were obtained on the technologist's workstation. This CT examination was performed using dose optimization techniques as appropriate, variously including the following: *Automated exposure control *Adjustment of mA and/or kV according to patient size (this includes techniques or standardized protocols for targeted exams where dose is matched to indication/reason for exam; i.e. extremities or head) *Use of iterative reconstruction technique DLP: 462 mGy-cm FINDINGS: LUNG BASES: The visualized lung bases are unremarkable. LIVER, GALLBLADDER, AND BILIARY TREE: Liver is homogeneous, unremarkable normal in size. Gallbladder has been removed. PANCREAS: Unremarkable. SPLEEN: Homogeneous, normal in size, measures 10.5 cm. ADRENAL GLANDS: Unremarkable. KIDNEYS AND URETERS: The kidneys are normal in size, shape, and attenuation. No hydronephrosis, hydroureter, or calculi seen. No perinephric stranding. BLADDER: Unremarkable. GASTROINTESTINAL TRACT: The small and large bowel are unremarkable. The appendix is unremarkable. ABDOMINAL WALL: No significant hernia is appreciated. LYMPH NODES: Normal. VASCULAR: Unremarkable. PELVIC VISCERA: Unremarkable. OSSEOUS STRUCTURES: Sclerotic densities in the right iliac bone probably bone island unchanged. Otherwise Unremarkable. CT/CT abdomen pelvis wo IV con IMPRESSION: 1. No CT evidence of acute intra-abdominal process to explain patient's pain symptoms. Normal appendix identified. No evidence of bowel obstruction. No kidney stone. 2. Gallbladder has been removed. Fleischner guidelines were followed.
[2022-02-12 12:16] VITALS: BP 123/96; PULSE 116; RESP 18; TEMP 36.8; O2SAT 98; BMI 24.3
--- NOTE | 2022-02-12 12:22 | ED.ABDPAIN ---
HPI - Abdominal Pain General Chief Complaint: Abdominal Pain Stated Complaint: Lower abd pain/High blood sugar Related Data Home Medications Medication Instructions Recorded Confirmed metformin 1,000 mg tablet 1,000 mg PO BID 01/07/20 01/07/20 Previous Rx's Medication Instructions Recorded cephalexin 500 mg capsule (Keflex) 500 mg PO Q6H 10 days #40 caps 01/07/20 oxycodone-acetaminophen 5 mg-325 1 tab PO Q6H PRN pain #10 tabs 01/07/20 mg tablet (Percocet) phenazopyridine 100 mg tablet 100 mg PO TID PRN pain 6 doses #10 01/07/20 (Pyridium) tabs doxycycline hyclate 100 mg capsule 100 mg PO BID #14 caps 05/31/20 ibuprofen 600 mg tablet 600 mg PO Q6-8H PRN pain #30 tabs 05/31/20 metronidazole 500 mg tablet 500 mg PO BID #7 tabs 05/31/20 (Flagyl) Allergies Allergy/AdvReac Type Severity Reaction Status Date / Time iron dextran complex AdvReac Intermediate SOB, Verified 05/31/20 19:55 [IRON DEXTRAN COMPLEX] COUGHING, FLUSHING, PMFSH Past Medical History Medical History Anemia Diabetes Migraine Neuropathy Rheumatoid arthritis Surgical History H/O tubal ligation Hx of cholecystectomy Social History Social History Alcohol intake: current Alcohol intake frequency: a few times a month Physical Exam ED Vital Signs: Vital Signs - 24 hr 02/12/22 12:16 Temperature 98.2 F Pulse Rate 116 H Respiratory Rate 18 Blood Pressure 123/96 H Pulse Oximetry 98 Oxygen Delivery Method Room Air BMI result Body Mass Index 24.3 Course Reevaluation(s) Reevaluation #1: 41-year-old female came for evaluation right lower quadrant abdominal pain for the past 2 days, pain is associated with nausea and vomiting, normal bowel movements, no urinary symptoms, no vaginal discharge or bleeding. CT/ labs were ordered from triage. Time: 12:22 Discharge Plan Discharge Clinical Impression: Abdominal pain Prescriptions: No Action metronidazole [Flagyl] 500 mg tablet 500 mg PO BID Qty: 7 0RF doxycycline hyclate 100 mg capsule 100 mg PO BID Qty: 14 0RF ibuprofen 600 mg tablet 600 mg PO Q6-8H PRN (Reason: pain) Qty: 30 0RF metformin 1,000 mg Tablet 1,000 mg PO BID cephalexin [Keflex] 500 mg capsule 500 mg PO Q6H 10 Days Qty: 40 0RF phenazopyridine [Pyridium] 100 mg tablet 100 mg PO TID PRN (Reason: pain) Qty: 10 0RF oxycodone-acetaminophen [Percocet] 5-325 mg tablet 1 tab PO Q6H PRN (Reason: pain) Qty: 10 0RF
[2022-02-12 12:44] LABS: MANUAL DIFF FLAG NO
[2022-02-12 12:55] LABS: Basophils Absolute Auto 0.1 X10*3/uL (0.0-0.2); Basophils Percent Auto 0.7 % (0-2); Eosinophils Absolute Auto 0.2 X10*3/uL (0.0-0.4); Eosinophils Percent Auto 1.8 % (0-4); Hematocrit 31.9 % (37.0-47.0); Hemoglobin 9.4 g/dl (12.0-16.0); Imm Gran Abs Auto 0.03 X10*3/uL (0.00-0.03); Imm Gran Pct Auto 0.3 % (0.0-0.4); Lymphocytes Absolute Auto 2.6 X10*3/uL (1.2-4.9); Mean Corpuscular HGB Conc 29.5 g/dl (31.0-35.0); Mean Corpuscular Hemoglobin 20.3 pg (27.0-33.0); Mean Corpuscular Volume 68.8 fL (80.0-98.0); Mean Platelet Volume 9.9 fL (9.4-12.3); Monocytes Absolute Auto 0.7 X10*3/uL (0.1-1.2); Monocytes Percent Auto 7.1 % (2-11); Neutrophils Absolute Auto 5.7 x10*3/uL (2.0-8.3); Neutrophils Percent Auto 62.1 % (45-73); Platelet Count 375 X10*3/uL (160-400); Red Blood Count 4.64 X10*6/uL (4.20-5.50); Red Cell Distribution Width 17.3 % (11.0-16.0); White Blood Count 9.2 X10*3/uL (4.8-10.8)
[2022-02-12 13:11] LABS: Alanine Aminotransferase 12 U/L (0-31); Albumin Level 4.1 g/dL (3.5-5.0); Alkaline Phosphatase 94 U/L (39-117); Anion Gap 14 (12-20); Aspartate Amino Transferase 11 U/L (5-31); Bilirubin Direct < 0.2 mg/dL (0.0-0.5); Bilirubin Total 0.2 mg/dL (0.0-1.0); Blood Urea Nitrogen 9 mg/dL (9-16); Calcium 9.1 mg/dL (8.4-10.2); Carbon Dioxide 24 mmol/L (22-29); Chloride 103 mmol/L (96-108); Creatinine Clr Calc Pharmacy 106.9; Estimated Glomerular Filt Rate > 60; Glucose Random 339 mg/dL (60-115); Lipase 43 U/L (8-78); Potassium 4.2 mmol/L (3.3-5.1); Sodium 137 mmol/L (135-145); Total Protein 7.9 g/dL (6.5-8.0)
--- NOTE | 2022-02-12 13:21 | ED_ITS ---
HPI - Abdominal Pain General Chief Complaint: Abdominal Pain Stated Complaint: Lower abd pain/High blood sugar Time Seen by Provider: 02/12/22 13:06 Source: patient Mode of arrival: ambulatory Limitations: no limitations History of Present Illness HPI narrative: 41 yo F with a PMH rheumatoid arthritis, untreated diabetes, peripheral neuropathy, anemia and cholecystectomy presents to the ED for c/o right sided a bdominal x 2 days. She is ttp throughout right abdominal quadrants without radiation, currently rated 6/10 and described as aching and sharp with palpation. She has had associated nausea and vomiting with last vomiting at midnight, described as yellow/green in color. She was able to eat breakfast and has been tolerating fluids this morning. She endorses a history of chronic constipation with her last bm yesterday. She denies use of OTC bowel medications. No other reported symptoms at this time. Pertinent past history: constipation Onset (ago): day(s) Related Data Home Medications Medication Instructions Recorded Confirmed metformin 1,000 mg tablet 1,000 mg PO BID 01/07/20 01/07/20 Previous Rx's Medication Instructions Recorded cephalexin 500 mg capsule (Keflex) 500 mg PO Q6H 10 days #40 caps 01/07/20 oxycodone-acetaminophen 5 mg-325 1 tab PO Q6H PRN pain #10 tabs 01/07/20 mg tablet (Percocet) phenazopyridine 100 mg tablet 100 mg PO TID PRN pain 6 doses #10 01/07/20 (Pyridium) tabs doxycycline hyclate 100 mg capsule 100 mg PO BID #14 caps 05/31/20 ibuprofen 600 mg tablet 600 mg PO Q6-8H PRN pain #30 tabs 05/31/20 metronidazole 500 mg tablet 500 mg PO BID #7 tabs 05/31/20 (Flagyl) Allergies Allergy/AdvReac Type Severity Reaction Status Date / Time iron dextran complex AdvReac Intermediate SOB, Verified 05/31/20 19:55 [IRON DEXTRAN COMPLEX] COUGHING, FLUSHING, PMFSH Past Medical History Medical History Anemia Diabetes Migraine Neuropathy Rheumatoid arthritis Surgical History H/O tubal ligation Hx of cholecystectomy Social History Social History Alcohol intake: current Alcohol intake frequency: a few times a month Advance Directives: No Physical Exam ED Vital Signs: Vital Signs - 24 hr 02/12/22 12:16 02/12/22 14:22 Temperature 98.2 F 98.6 F Pulse Rate 116 H 97 Respiratory Rate 18 18 Blood Pressure 123/96 H 140/91 H Pulse Oximetry 98 98 Oxygen Delivery Method Room Air Room Air BMI result Body Mass Index 24.3 Medications Administered Discontinued Medications Generic Name Dose Route Start Last Admin Trade Name Lucille PRN Reason Stop Dose Admin Acetaminophen 650 mg 02/12/22 14:26 02/12/22 15:12 Acetaminophen 325 Mg Tablet PO 02/12/22 14:27 650 mg ONCE ONE Administration MDM - Abdominal Pain MDM Narrative Medical decision making narrative: 41 yo F c/o tenderness throughout right abdominal quadrants on palpation without radiation x 2 days. Random glucose 339 on initial lab draw. Pt states she has a history of diabetes which she has never sought care for. Remain lab work unremarkable. CT abdomen/pelvis with no evidence of acute intra-abdominal processes. Patient's urine negative for or UTI. I explained my physical exam findings and test results to the patient with no unanswered questions. Clinical presentation not present with any acute abdominal pathology. Recommended to begin a daily bowel regimen with either Miralax or colace to help reduce constipation. I stressed the importance of the patient following up with her primary care provider regarding blood sugars and diabetes diagnosis. Pt educated on the importance of returning to the emergency department immediately if symptoms were to worsen or if she were to develop any dizziness, shortness of breath, difficulty breathing, chest pain, blurry vision, loss of vision, nausea, vomiting, abdominal pain, fever, chills, back pain, or any other complaints. Patient verbalized agreement and understanding with this treatment plan and discharge. Clinical presentation not present with any acute abdominal pathology. Lab Data Result diagrams: 02/12/22 12:39 02/12/22 12:39 Labs: Lab Results 02/12/22 02/12/22 02/12/22 Range/Units 12:39 12:39 15:15 WBC 9.2 (4.8-10.8) X10*3/uL RBC 4.64 (4.20-5.50) X10*6/uL Hgb 9.4 L (12.0-16.0) g/dl Hct 31.9 L (37.0-47.0) % MCV 68.8 L (80.0-98.0) fL MCH 20.3 L (27.0-33.0) pg MCHC 29.5 L (31.0-35.0) g/dl RDW 17.3 H (11.0-16.0) % Plt Count 375 (160-400) X10*3/uL MPV 9.9 (9.4-12.3) fL Immature Gran % (Auto) 0.3 (0.0-0.4) % Neut % (Auto) 62.1 (45-73) % Lymph % (Auto) 28.0 (20-40) % [place] % (Auto) 7.1 (2-11) % Eos % (Auto) 1.8 (0-4) % Baso % (Auto) 0.7 (0-2) % Lymph # (Auto) 2.6 (1.2-4.9) X10*3/uL [place] # (Auto) 0.7 (0.1-1.2) X10*3/uL Eos # (Auto) 0.2 (0.0-0.4) X10*3/uL Baso # (Auto) 0.1 (0.0-0.2) X10*3/uL Abs Immat Gran (auto) 0.03 (0.00-0.03) X10*3/uL Absolute Neuts (auto) 5.7 (2.0-8.3) x10*3/uL Absolute Nucleated RBC 0.000 (0.0-0.012) X10*3/uL Nucleated RBC % (auto) 0.0 (0.0-0.2) /100WBC Sodium 137 (135-145) mmol/L Potassium 4.2 (3.3-5.1) mmol/L Chloride 103 (96-108) mmol/L Carbon Dioxide 24 (22-29) mmol/L Anion Gap 14 (12-20) BUN 9 (9-16) mg/dL Creatinine 0.68 (0.5-1.4) mg/dL Estim Creat Clear Calc 106.9 Estimated GFR > 60 Random Glucose 339 H (60-115) mg/dL Calcium 9.1 D (8.4-10.2) mg/dL Total Bilirubin 0.2 (0.0-1.0) mg/dL Direct Bilirubin < 0.2 (0.0-0.5) mg/dL AST 11 (5-31) U/L ALT 12 (0-31) U/L Alkaline Phosphatase 94 (39-117) U/L C-Reactive Protein 0.36 (< or = 0.50) mg/dL Total Protein 7.9 (6.5-8.0) g/dL Albumin 4.1 (3.5-5.0) g/dL Lipase 43 (8-78) U/L Urine Color Yellow Urine Appearance Clear Urine pH 6.5 (5.0-9.0) Ur Specific [place] >= 1.030 H (1.005-1.025) Urine Protein Negative (Neg-Trace) mg/dL Urine Glucose (UA) >=1000 H (Negative) mg/dL Urine Ketones Negative (Negative) mg/dL Urine Blood Large (3+) H (Negative) Urine Nitrite Negative (Negative) Ur Leukocyte Esterase Negative (Negative) Urine RBC >20 H (0-2) /HPF Urine WBC 0-5 (0-5) /HPF Ur Squamous Epith Cells 0-2 (0-2) /HPF Urine Bacteria 3+ (None Seen) Hyaline Casts 0-2 (0-2) /LPF Urine Test (NEGATIVE) 02/12/22 Range/Units 15:15 WBC (4.8-10.8) X10*3/uL RBC (4.20-5.50) X10*6/uL Hgb (12.0-16.0) g/dl Hct (37.0-47.0) % MCV (80.0-98.0) fL MCH (27.0-33.0) pg MCHC (31.0-35.0) g/dl RDW (11.0-16.0) % Plt Count (160-400) X10*3/uL MPV (9.4-12.3) fL Immature Gran % (Auto) (0.0-0.4) % Neut % (Auto) (45-73) % Lymph % (Auto) (20-40) % [place] % (Auto) (2-11) % Eos % (Auto) (0-4) % Baso % (Auto) (0-2) % Lymph # (Auto) (1.2-4.9) X10*3/uL [place] # (Auto) (0.1-1.2) X10*3/uL Eos # (Auto) (0.0-0.4) X10*3/uL Baso # (Auto) (0.0-0.2) X10*3/uL Abs Immat Gran (auto) (0.00-0.03) X10*3/uL Absolute Neuts (auto) (2.0-8.3) x10*3/uL Absolute Nucleated RBC (0.0-0.012) X10*3/uL Nucleated RBC % (auto) (0.0-0.2) /100WBC Sodium (135-145) mmol/L Potassium (3.3-5.1) mmol/L Chloride (96-108) mmol/L Carbon Dioxide (22-29) mmol/L Anion Gap (12-20) BUN (9-16) mg/dL Creatinine (0.5-1.4) mg/dL Estim Creat Clear Calc Estimated GFR Random Glucose (60-115) mg/dL Calcium (8.4-10.2) mg/dL Total Bilirubin (0.0-1.0) mg/dL Direct Bilirubin (0.0-0.5) mg/dL AST (5-31) U/L ALT (0-31) U/L Alkaline Phosphatase (39-117) U/L C-Reactive Protein (< or = 0.50) mg/dL Total Protein (6.5-8.0) g/dL Albumin (3.5-5.0) g/dL Lipase (8-78) U/L Urine Color Urine Appearance Urine pH (5.0-9.0) Ur Specific [place] (1.005-1.025) Urine Protein (Neg-Trace) mg/dL Urine Glucose (UA) (Negative) mg/dL Urine Ketones (Negative) mg/dL Urine Blood (Negative) Urine Nitrite (Negative) Ur Leukocyte Esterase (Negative) Urine RBC (0-2) /HPF Urine WBC (0-5) /HPF Ur Squamous Epith Cells (0-2) /HPF Urine Bacteria (None Seen) Hyaline Casts (0-2) /LPF Urine Test NEGATIVE (NEGATIVE) Imaging Data CT scan - pelvis: Radiologist's impression: CT/CT abdomen pelvis wo IV con IMPRESSION: 1.? No CT evidence of acute intra-abdominal process to explain patient's pain symptoms. Normal appendix identified. No evidence of bowel obstruction. No kidney stone. 2.? Gallbladder has been removed. Discharge Plan Discharge Clinical Impression: Abdominal pain, Diabetes Patient Disposition: Home, Self-Care Instructions: Type 2 Diabetes in Adults: New Diagnosis (ED), Abdominal Pain (ED) Prescriptions: No Action metronidazole [Flagyl] 500 mg tablet 500 mg PO BID Qty: 7 0RF doxycycline hyclate 100 mg capsule 100 mg PO BID Qty: 14 0RF ibuprofen 600 mg tablet 600 mg PO Q6-8H PRN (Reason: pain) Qty: 30 0RF metformin 1,000 mg Tablet 1,000 mg PO BID cephalexin [Keflex] 500 mg capsule 500 mg PO Q6H 10 Days Qty: 40 0RF phenazopyridine [Pyridium] 100 mg tablet 100 mg PO TID PRN (Reason: pain) Qty: 10 0RF oxycodone-acetaminophen [Percocet] 5-325 mg tablet 1 tab PO Q6H PRN (Reason: pain) Qty: 10 0RF Referrals: [facility] Family Medicine [Provider Group] [facility] [Provider Group] [facility] [Provider Group] Print Language: Guatemalan
[2022-02-12 13:50] LABS: C Reactive Protein 0.36 mg/dL (< or = 0.50)
[2022-02-12 14:22] VITALS: BP 140/91; PULSE 97; RESP 18; TEMP 37; O2SAT 98
[2022-02-12] MEDS: Acetaminophen 325 MG TABLET 650 MG PO (15:12)
[2022-02-12 15:26] LABS: Appearance Urine Clear; Color Urine Yellow; Glucose Urine UA >=1000 mg/dL (Negative); Leukocyte Esterase Urine Negative (Negative); Nitrite Urine Negative (Negative); PH 6.5 (5.0-9.0); Specific Gravity - Urine >= 1.030 (1.005-1.025); UMIC TRIGGER UACC YES; Urine Blood Large (3+) (Negative); Urine Ketones Negative (Negative); Urine Protein Negative (Neg-Trace)
[2022-02-12 15:30] LABS: UPreg QC Valid YES; Urine Pregnancy NEGATIVE (NEGATIVE)
[2022-02-12 15:31] LABS: Bacteria Urine 3+ (None Seen); Hyaline Casts Urine 0-2 /LPF (0-2); RBC Urine >20 /HPF (0-2); Squamous Epithelial Cell Urine 0-2 /HPF (0-2); WBC Urine 0-5 /HPF (0-5)
== END 2022-02-12 16:33 | disposition home or self-care (01) ==
PROVIDERS: Emergency Medicine; Nurse Practitioner Family; Emergency Provider Emergency Medicine Emergency Medical Services
DX: R10.31 Right lower quadrant pain (principal); E11.9 Type 2 diabetes mellitus without complications
CPT/HCPCS: 36415; 74176; 80048; 80076; 81001; 81025; 83690; 85025; 86140; 99284

== ENCOUNTER 2023-06-15 16:59 | Emergency (ER) | payer MEDICAID, SELFPAY ==
--- NOTE | 2023-06-15 17:26 | ED_ITS ---
HPI - General Adult General Chief complaint: General Medical Stated complaint: left side abd pain Source: patient Mode of arrival: ambulatory Limitations: no limitations History of Present Illness HPI narrative: Patient is a 43 year old assigned female at with a history of DM presenting to the emergency department today with abdominal pain and bilateral lower leg pain. Patient states that she has not been taking care of her diabetes and her neuropathy of her bilateral lower legs is becoming more painful. Patient states that she is also having abdominal pain. Patient denies any dizziness, lightheadedness, nausea, vomiting, fever, chills, blurry vision, double vision, loss of vision, chest pain, difficulty breathing, shortness of breath, back pain, night sweats, pain with urination, increased urinary frequency, increased urinary urgency, blood in her urine or stool, syncope or a near syncopal episode, recent trauma or falls, bowel incontinence, bladder incontinence, bowel retention, bladder retention, or any other complaints at this time. Severity: mild Severity scale (1-10): 4 Quality: aching Pain Consistency: constant Relieving factors: none Exacerbating factors: none Associated symptoms: denies other symptoms Treatments prior to arrival: none Related Data Home Medications Medication Instructions Recorded Confirmed metformin 1,000 mg tablet 1,000 mg PO BID 01/07/20 01/07/20 Previous Rx's Medication Instructions Recorded cephalexin 500 mg capsule (Keflex) 500 mg PO Q6H 10 days #40 caps 01/07/20 oxycodone-acetaminophen 5 mg-325 1 tab PO Q6H PRN pain #10 tabs 01/07/20 mg tablet (Percocet) phenazopyridine 100 mg tablet 100 mg PO TID PRN pain 6 doses #10 01/07/20 (Pyridium) tabs doxycycline hyclate 100 mg capsule 100 mg PO BID #14 caps 05/31/20 ibuprofen 600 mg tablet 600 mg PO Q6-8H PRN pain #30 tabs 05/31/20 metronidazole 500 mg tablet 500 mg PO BID #7 tabs 05/31/20 (Flagyl) Allergies Allergy/AdvReac Type Severity Reaction Status Date / Time iron dextran complex AdvReac Intermediate SOB, Verified 06/15/23 17:26 [IRON DEXTRAN COMPLEX] COUGHING, FLUSHING, Review of Systems 2 Constitutional: Constitutional: Reports no additional constitutional complaints, Denies chills, Denies fever(s) and Denies night sweats Eyes: Eyes: Reports no additional eye complaints, Denies blurry vision, Denies change in vision, Denies diplopia, Denies eye discharge, Denies loss of vision and Denies eye pain ENT: Denies dizziness Cardiovascular: Cardiovascular: Reports no additional cardiovascular complaints, Denies chest pain, Denies lightheadedness, Denies Loss of Consciousness and Denies dyspnea Respiratory: Respiratory: Reports no additional respiratory complaints and Denies dyspnea Gastrointestinal: Gastrointestinal: Reports no additional gastrointestinal complaints, Reports abdominal pain, Denies melena, Denies hematochezia, Denies change in bowel habits and Denies change in stool character Genitourinary: Genitourinary: Denies hematuria, Denies urinary frequency, Denies dysuria, Denies urinary incontinence, Denies urinary hesitancy and Denies urinary urgency Musculoskeletal: Musculoskeletal: Reports no additional musculoskeletal complaints, Denies numbness and Denies tingling Comments: bilateral lower leg pain Neurologic: Denies dizziness, Denies loss of vision, Denies numbness and Denies tingling Psychiatric: Psychiatric: Reports no additional psychiatric complaints Endocrine: Endocrine: Reports no additional endocrine complaints Hematologic/Lymphatic: Hematologic/Lymphatic: Reports no additional hematologic/lymphatic complaints Allergic/Immunologic: Allergic/Immunologic: Reports no additional allergic/immunologic complaints PMFSH Past Medical History Attestation statement: The following information was validated with the patient. Source: old records reviewed and nursing notes reviewed Medical History Neuropathy Migraine Anemia Rheumatoid arthritis Diabetes Surgical History Hx of cholecystectomy H/O tubal ligation Social History Social History Alcohol intake: current Alcohol intake frequency: a few times a month Advance Directives: No Advance Directives Information Provided: No Physical Exam ED Vital Signs: Vital Signs - 24 hr 06/15/23 19:53 Temperature 97.1 F Pulse Rate 112 H Respiratory Rate 17 Blood Pressure 156/99 H Pulse Oximetry 98 Oxygen Delivery Method Room Air BMI result Body Mass Index 21.9 Const General: cooperative, no acute distress, alert and awake Nutritional Appearance: well nourished Orientation/consciousness: patient oriented x3 Limitations: no limitations HENMT Head: Yes normal to inspection and Yes atraumatic Ears: hearing grossly normal bilaterally and external ears normal General nose exam: Normal external nose present, no nasal discharge noted and no epistaxis Face and sinus: Yes normal facial exam, No abrasion and No laceration Mouth: Normal oral and palatal mucosa present, no drooling and no muffled voice Eyes General: appearance normal, both eyes and all related structures Periorbital: periorbital findings normal Eyelids: Yes eyelids normal Conjunctivae: conjunctivae normal Pupils: Equal, round and reactive pupils present EOM: EOMs intact bilaterally Neck Neck: Yes normal visual inspection, Yes full ROM and Yes no lymphadenopathy Chest Chest palpation & inspection: normal inspection of the chest Resp Effort & Inspection: normal respiratory effort and able to speak in complete sentences GI Inspection: Yes normal to inspection Neuro General: patient oriented x3 and moves all extremities Cranial nerves: Yes Equal, round and reactive pupils present Cognition (Neuro): normal cognition Motor exam (neuro): 5/5 motor strength present throughout Sensory Exam: Normal double simultaneous stimulation for sensation Coordination: [id number] test normal Extrem General: Yes normal to inspection, Yes full ROM and Yes capillary refill normal Psych Appearance: grossly normal Mental Status: mental status grossly normal Affect: normal affect Attitude: cooperative Thought process: Normal thought process present Thought content: Normal thought content present Insight: Good insight present (Psych) Course Course Course Narrative: RME performed by Bethany Hoyt PA-C. Patient is a 43 year old assigned female at presenting to the emergency department with abdominal pain and bilateral foot neuropathy. Detailed physical exam and review of systems are deferred to the home health clinician. Labs and swabs ordered. Patient placed back in the waiting room pending room availability and results. Medical Decision Making Medical Decision Making MDM Narrative: Patient is a 43 year old assigned female at with a history of DM presenting to the emergency department today with abdominal pain and bilateral lower leg pain. Patient's limited physical exam performed in triage was unremarkable. Patient's blood work showed a mild anemia which is chronic for the patient and an elevated glucose which is consistent with the patient's self reported medication non-compliance. Patient's urine showed no acute process. Patient left the department without completing treatment. Patient left the department before myself or any of the other emergency department clinicians could review or explain physical exam findings, test results, need or lack there of for additional testing, need or lack there of for medical admission, treatment options, or a treatment plan. Differential Diagnosis Differential Diagnoses: The differential diagnosis associated with the presentation includes Medication non-compliance Chronic leg pain Abdominal pain Admission/Observation Consideration of admission/observation: Escalation of care including admission/observation considered Patient would have been admitted to the hospital had her work up had any findings where hospital admission was appropriate, her clinical presentation warranted hospital admission, and she hadn't left the department before results/exam/need for admission was discussed. Lab Data [facility] Lab Attestation statement: I reviewed the patient's lab results. My interpretation of these results are in the [facility] Rationale portion of this note. 06/15/23 20:03 06/15/23 20:03 Labs: Lab Results 06/15/23 06/15/23 Range/Units 20:03 20:45 WBC 9.5 (4.8-10.8) X10*3/uL RBC 4.98 (4.20-5.50) X10*6/uL Hgb 9.6 L (12.0-16.0) g/dl Hct 33.3 L (37.0-47.0) % MCV 66.9 L (80.0-98.0) fL MCH 19.3 L (27.0-33.0) pg MCHC 28.8 L (31.0-35.0) g/dl RDW 18.7 H (11.0-16.0) % Plt Count 372 (160-400) X10*3/uL MPV 9.6 (9.4-12.3) fL Immature Gran % (Auto) 0.4 (0.0-0.4) % Neut % (Auto) 54.4 (45-73) % Lymph % (Auto) 35.2 (20-40) % [place] % (Auto) 7.6 (2-11) % Eos % (Auto) 1.9 (0-4) % Baso % (Auto) 0.5 (0-2) % Lymph # (Auto) 3.3 (1.2-4.9) X10*3/uL [place] # (Auto) 0.7 (0.1-1.2) X10*3/uL Eos # (Auto) 0.2 (0.0-0.4) X10*3/uL Baso # (Auto) 0.1 (0.0-0.2) X10*3/uL Abs Immat Gran (auto) 0.04 H (0.00-0.03) X10*3/uL Absolute Neuts (auto) 5.2 (2.0-8.3) x10*3/uL Absolute Nucleated RBC 0.000 (0.0-0.012) X10*3/uL Nucleated RBC % (auto) 0.0 (0.0-0.2) /100WBC Sodium 135 (135-145) mmol/L Potassium 3.6 (3.3-5.1) mmol/L Chloride 102 (96-108) mmol/L Carbon Dioxide 22 (22-29) mmol/L Anion Gap 15 (12-20) BUN 5 L (9-16) mg/dL Creatinine 0.70 (0.5-1.4) mg/dL Estim Creat Clear Calc 101.7 Estimated GFR > 60 Random Glucose 365 H* (60-115) mg/dL Calcium 9.6 (8.4-10.2) mg/dL Magnesium 1.7 (1.6-2.6) mg/dL Total Bilirubin 0.2 (0.0-1.0) mg/dL AST 13 (5-31) U/L ALT 12 (0-31) U/L Alkaline Phosphatase 89 (39-117) U/L Total Protein 8.7 H (6.5-8.0) g/dL Albumin 4.1 (3.5-5.0) g/dL Urine Color Yellow Urine Appearance Clear Urine pH 6.5 (5.0-9.0) Ur Specific [place] >= 1.030 H (1.005-1.025) Urine Protein Negative (Neg-Trace) mg/dL Urine Glucose (UA) >=1000 H (Negative) mg/dL Urine Ketones Negative (Negative) mg/dL Urine Blood Negative (Negative) Urine Nitrite Negative (Negative) Ur Leukocyte Esterase Negative (Negative) Urine RBC 0-2 (0-2) /HPF Urine WBC 0-5 (0-5) /HPF Ur Squamous Epith Cells 0-2 (0-2) /HPF Urine Bacteria 1+ (None Seen) Hyaline Casts 0-2 (0-2) /LPF Influenza Type A (PCR) NEGATIVE (Negative) Influenza Type B (PCR) NEGATIVE (Negative) RSV RNA Qual (PCR) NEGATIVE (Negative) SARS-CoV-2 RNA (RT-PCR) NEGATIVE (Negative) Chronic Conditions Patient?s care impacted by: Diabetes Discharge Plan Discharge Clinical Impression: Diabetes, Neuropathy Patient Disposition: Left W/O Completing Treatment Prescriptions: No Action metronidazole [Flagyl] 500 mg tablet 500 mg PO BID Qty: 7 0RF doxycycline hyclate 100 mg capsule 100 mg PO BID Qty: 14 0RF ibuprofen 600 mg tablet 600 mg PO Q6-8H PRN (Reason: pain) Qty: 30 0RF metformin 1,000 mg Tablet 1,000 mg PO BID cephalexin [Keflex] 500 mg capsule 500 mg PO Q6H 10 Days Qty: 40 0RF phenazopyridine [Pyridium] 100 mg tablet 100 mg PO TID PRN (Reason: pain) Qty: 10 0RF oxycodone-acetaminophen [Percocet] 5-325 mg tablet 1 tab PO Q6H PRN (Reason: pain) Qty: 10 0RF Discharge Date/Time: 06/16/23 00:19
[2023-06-15 17:27] VITALS: BP 149/99; PULSE 132; RESP 16; TEMP 36.3; O2SAT 97; BMI 21.9
[2023-06-15 19:53] VITALS: BP 156/99; PULSE 112; RESP 17; TEMP 36.2; O2SAT 98
[2023-06-15 20:09] LABS: MANUAL DIFF FLAG NO
[2023-06-15 20:11] LABS: Basophils Absolute Auto 0.1 X10*3/uL (0.0-0.2); Basophils Percent Auto 0.5 % (0-2); Eosinophils Absolute Auto 0.2 X10*3/uL (0.0-0.4); Eosinophils Percent Auto 1.9 % (0-4); Hematocrit 33.3 % (37.0-47.0); Hemoglobin 9.6 g/dl (12.0-16.0); Imm Gran Abs Auto 0.04 X10*3/uL (0.00-0.03); Imm Gran Pct Auto 0.4 % (0.0-0.4); Lymphocytes Absolute Auto 3.3 X10*3/uL (1.2-4.9); Lymphocytes Percent Auto 35.2 % (20-40); Mean Corpuscular HGB Conc 28.8 g/dl (31.0-35.0); Mean Corpuscular Hemoglobin 19.3 pg (27.0-33.0); Mean Corpuscular Volume 66.9 fL (80.0-98.0); Mean Platelet Volume 9.6 fL (9.4-12.3); Monocytes Absolute Auto 0.7 X10*3/uL (0.1-1.2); Monocytes Percent Auto 7.6 % (2-11); Neutrophils Absolute Auto 5.2 x10*3/uL (2.0-8.3); Neutrophils Percent Auto 54.4 % (45-73); Platelet Count 372 X10*3/uL (160-400); Red Blood Count 4.98 X10*6/uL (4.20-5.50); Red Cell Distribution Width 18.7 % (11.0-16.0); White Blood Count 9.5 X10*3/uL (4.8-10.8)
[2023-06-15 20:30] LABS: Alanine Aminotransferase 12 U/L (0-31); Albumin Level 4.1 g/dL (3.5-5.0); Alkaline Phosphatase 89 U/L (39-117); Anion Gap 15 (12-20); Aspartate Amino Transferase 13 U/L (5-31); Bilirubin Total 0.2 mg/dL (0.0-1.0); Blood Urea Nitrogen 5 mg/dL (9-16); Calcium 9.6 mg/dL (8.4-10.2); Carbon Dioxide 22 mmol/L (22-29); Chloride 102 mmol/L (96-108); Creatinine Clr Calc Pharmacy 101.7; Estimated Glomerular Filt Rate > 60; Glucose Random 365 mg/dL (60-115); Magnesium 1.7 mg/dL (1.6-2.6); Potassium 3.6 mmol/L (3.3-5.1); Sodium 135 mmol/L (135-145); Total Protein 8.7 g/dL (6.5-8.0)
[2023-06-15 20:48] LABS: Influenza A PCR NEGATIVE (Negative); Influenza B PCR NEGATIVE (Negative); Resp Syncy Virus RNA Qual PCR NEGATIVE (Negative); SARS COV2 PCR INHOUSE NEGATIVE (Negative)
[2023-06-15 20:58] LABS: Appearance Urine Clear; Color Urine Yellow; Glucose Urine UA >=1000 mg/dL (Negative); Leukocyte Esterase Urine Negative (Negative); Nitrite Urine Negative (Negative); PH 6.5 (5.0-9.0); Specific Gravity - Urine >= 1.030 (1.005-1.025); UMIC TRIGGER UACC YES; Urine Blood Negative (Negative); Urine Ketones Negative (Negative); Urine Protein Negative (Neg-Trace)
[2023-06-15 21:16] LABS: Bacteria Urine 1+ (None Seen); Hyaline Casts Urine 0-2 /LPF (0-2); RBC Urine 0-2 /HPF (0-2); Squamous Epithelial Cell Urine 0-2 /HPF (0-2); WBC Urine 0-5 /HPF (0-5)
== END 2023-06-16 00:19 | disposition left against medical advice (07) ==
PROVIDERS: Physician Assistant Medical; Emergency Provider Emergency Medicine
DX: E11.40 Type 2 diabetes mellitus with diabetic neuropathy, unspecified (principal); E11.65 Type 2 diabetes mellitus with hyperglycemia; Z91.148 Patient's other noncompliance with medication regimen for other reason; Z11.52 Encounter for screening for COVID-19; Z20.828 Contact with and (suspected) exposure to other viral communicable diseases
CPT/HCPCS: 0241U; 80053; 81001; 81003; 83735; 85025; 99282; 99283

== ENCOUNTER 2023-06-21 18:27 | Emergency (ER) | payer MEDICAID, SELFPAY ==
--- NOTE | 2023-06-21 | ECG_ITS ---
Test Reason : ABD PAIN Blood Pressure : / mmHG Vent. Rate : 121 BPM Atrial Rate : 121 BPM P-R Int : 134 ms QRS Dur : 084 ms QT Int : 314 ms P-R-T Axes : 033 013 044 degrees QTc Int : 445 ms Sinus tachycardia Otherwise normal ECG No previous ECGs available Referred By: Generic ED Physician Electronically Signed By:Bernard Pederson
--- NOTE | ~2023-06-21 | CT_ITS ---
EXAMINATION: CT ABDOMEN AND PELVIS WITHOUT IV CONTRAST CLINICAL INFORMATION: Left upper quadrant pain COMPARISON: CT abdomen/pelvis 02/12/2022 TECHNIQUE: Multiple axial images were obtained from the superior aspect of the liver through the pubic symphysis without intravenous contrast. Images were evaluated on independent dedicated 3-D workstation and 3-D images were reconstructed with concurrent radiologist supervision and subsequently interpreted. Oral contrast was not administered. This CT examination was performed using dose optimization techniques as appropriate, variously including the following: *Automated exposure control *Adjustment of mA and/or kV according to patient size (this includes techniques or standardized protocols for targeted exams where dose is matched to indication/reason for exam; i.e. extremities or head) *Use of iterative reconstruction technique DLP: 466 mGy-cm FINDINGS: LUNG BASES: The visualized lung bases are clear. CARDIOMEDIASTINUM: The visualized heart is normal in size without pericardial effusion. No coronary artery calcification. LIVER: Homogeneous in attenuation. Normal in size. GALLBLADDER: Absent BILIARY SYSTEM: No intrahepatic or extrahepatic biliary dilation. PANCREAS: Homogeneous in attenuation. SPLEEN: Normal in size. GENITOURINARY: No contour deforming masses. No perinephric fluid collection. No renal calculi. No hydroureteronephrosis. ADRENAL GLANDS: Unremarkable. REPRODUCTIVE: Uterus and and bilateral adnexa are unremarkable. GASTROINTESTINAL: The visualized alimentary tract is normal in course. No evidence of obstruction. APPENDIX: The appendix is seen in its entirety and is unremarkable. PERITONEUM: No pneumoperitoneum. No intra-abdominal fluid collection. VASCULATURE: No abdominal aortic aneurysm. LYMPH NODES: Numerous scattered mesenteric lymph nodes, nonspecific. SOFT TISSUES/MUSCULOSKELETAL: There is no acute fracture or significant focal osseous lesion. CT/CT abdomen pelvis wo IV con IMPRESSION: No acute pathology of the abdomen or pelvis on this noncontrast study. Fleischner guidelines were followed.
[2023-06-21 18:34] VITALS: BP 152/94; PULSE 133; RESP 18; TEMP 36.1; O2SAT 100; BMI 21.9
[2023-06-21 19:01] LABS: MANUAL DIFF FLAG NO
[2023-06-21 19:02] LABS: Basophils Absolute Auto 0.1 X10*3/uL (0.0-0.2); Basophils Percent Auto 0.5 % (0-2); Eosinophils Absolute Auto 0.2 X10*3/uL (0.0-0.4); Eosinophils Percent Auto 1.8 % (0-4); Hematocrit 31.4 % (37.0-47.0); Imm Gran Abs Auto 0.04 X10*3/uL (0.00-0.03); Imm Gran Pct Auto 0.4 % (0.0-0.4); Lymphocytes Absolute Auto 3.7 X10*3/uL (1.2-4.9); Lymphocytes Percent Auto 37.5 % (20-40); Mean Corpuscular HGB Conc 28.7 g/dl (31.0-35.0); Mean Corpuscular Hemoglobin 19.2 pg (27.0-33.0); Mean Platelet Volume 9.9 fL (9.4-12.3); Monocytes Absolute Auto 0.8 X10*3/uL (0.1-1.2); Monocytes Percent Auto 7.8 % (2-11); Neutrophils Absolute Auto 5.2 x10*3/uL (2.0-8.3); Platelet Count 389 X10*3/uL (160-400); Red Blood Count 4.69 X10*6/uL (4.20-5.50); Red Cell Distribution Width 18.8 % (11.0-16.0); White Blood Count 9.9 X10*3/uL (4.8-10.8)
[2023-06-21 19:19] LABS: Alanine Aminotransferase 11 U/L (0-31); Albumin Level 3.9 g/dL (3.5-5.0); Alkaline Phosphatase 92 U/L (39-117); Anion Gap 15 (12-20); Aspartate Amino Transferase 9 U/L (5-31); Bilirubin Total 0.2 mg/dL (0.0-1.0); Blood Urea Nitrogen 5 mg/dL (9-16); Calcium 9.6 mg/dL (8.4-10.2); Carbon Dioxide 22 mmol/L (22-29); Chloride 101 mmol/L (96-108); Creatinine Clr Calc Pharmacy 92.5; Estimated Glomerular Filt Rate > 60; Glucose Random 471 mg/dL (60-115); Potassium 3.8 mmol/L (3.3-5.1); Sodium 134 mmol/L (135-145); Total Protein 8.2 g/dL (6.5-8.0)
[2023-06-21 20:03] VITALS: BP 157/86; PULSE 118
[2023-06-21] MEDS: 0.9 % Sodium Chloride 1,000 ML 999 ML IV (20:08)
[2023-06-21 20:12] LABS: Glucose, Whole Blood 370 mg/dL (60-115)
[2023-06-21 20:17] VITALS: BP 158/100; PULSE 116
[2023-06-21 20:20] LABS: Beta-Hydroxybutyrate 0.15 mmol/L (0.02-0.27)
--- NOTE | 2023-06-21 20:22 | ED.ABDPAIN ---
HPI - Abdominal Pain General Chief Complaint: Abdominal Pain Stated Complaint: Abdominal and feet pain Time Seen by Provider: 06/21/23 20:10 Source: patient, RN notes reviewed and old records reviewed Mode of arrival: ambulatory Limitations: no limitations History of Present Illness HPI narrative: 43 year old female with pmhx significant for T2DM (on Metformin 1000mg BID), diabetic neuropathy, RA, migraines, and anemia presents to the ED today for evaluation of abdominal pain x7 days. Pain is localized to right side of abdomen and has been waxing and waning. Denies having pain like this before. Endorses previous cholecystectomy and c-sections. No other abdominal surgeries. Denies fever, chills, N/V/D, constipation, dysuria, hematuria. Denies sick contacts. She states that she has been compliant with her metformin. She last took her metformin this morning. She is due for her second dose at 2030 tonight. Additionally she endorses chronic numbness/ burning to bilateral feet. She has a history of neuropathy of which she takes Gabapentin 400mg BID however ran out of this medication approximately 8 days ago. Since this time, her neuropathy pain has been worsening. She admits that her PCP dropped her as a patient and she has been unable to refill this prescription. Denies any new pain in her LEs. Denies recent travel or long car rides. Denies hx of DVTs. Related Data Home Medications Medication Instructions Recorded Confirmed metformin 1,000 mg tablet 1,000 mg PO BID 01/07/20 01/07/20 Previous Rx's Medication Instructions Recorded cephalexin 500 mg capsule (Keflex) 500 mg PO Q6H 10 days #40 caps 01/07/20 oxycodone-acetaminophen 5 mg-325 1 tab PO Q6H PRN pain #10 tabs 01/07/20 mg tablet (Percocet) phenazopyridine 100 mg tablet 100 mg PO TID PRN pain 6 doses #10 01/07/20 (Pyridium) tabs doxycycline hyclate 100 mg capsule 100 mg PO BID #14 caps 05/31/20 ibuprofen 600 mg tablet 600 mg PO Q6-8H PRN pain #30 tabs 05/31/20 metronidazole 500 mg tablet 500 mg PO BID #7 tabs 05/31/20 (Flagyl) gabapentin 400 mg capsule 400 mg PO BID #60 caps 06/21/23 metformin 1,000 mg tablet 1,000 mg PO BID #60 tabs 06/21/23 nitrofurantoin 100 mg PO Q12H 3 days #6 caps 06/21/23 monohydrate/macrocrystals 100 mg capsule (Macrobid) Allergies Allergy/AdvReac Type Severity Reaction Status Date / Time iron dextran complex AdvReac Intermediate SOB, Verified 06/21/23 18:34 [IRON DEXTRAN COMPLEX] COUGHING, FLUSHING, Review of Systems Review of Systems Constitutional: No fever, chills, fatigue, night sweats, weight changes ENT/Mouth: No ear pain, hearing loss, nasal congestion, sinus pain, rhinorrhea, sore throat Eyes: No eye pain, swelling, redness, vision changes, discharge Cardio: No chest pain, palpitations, NAVARRO, orthopnea, peripheral edema Pulm: No SOB, cough, sputum, wheezing, dyspnea, hemoptysis GI: No nausea, vomiting, hematemesis, diarrhea, constipation, hematochezia, melena, +abdominal pain : No irregular bleeding, dysuria, frequency, urgency, hesitancy, hematuria, flank pain, urinary flow changes, urinary incontinence or retention MSK: No back pain, neck pain, joint pain, myalgias Skin: No lesions, rashes Neuro: No weakness, LOC, dizziness, headache, +numbness/tingling to toes Psych: No anxiety/panic, depression, SI/HI, AH/VH All other systems reviewed and are negative. [facility] Past Medical History Attestation statement: The following information was validated with the patient. Source: old records reviewed and nursing notes reviewed Medical History Neuropathy Migraine Anemia Rheumatoid arthritis Diabetes Surgical History Hx of cholecystectomy H/O tubal ligation Social History Social History Alcohol intake: current Alcohol intake frequency: a few times a month Advance Directives: No Advance Directives Information Provided: No Physical Exam ED Vital Signs: Vital Signs - 24 hr 06/21/23 18:34 06/21/23 20:03 06/21/23 20:17 Temperature 97 F Pulse Rate 133 H 118 H 116 H Respiratory Rate 18 Blood Pressure 152/94 H 157/86 H 158/100 H Pulse Oximetry 100 Oxygen Delivery Method Room Air 06/21/23 20:58 Temperature Pulse Rate 118 H Respiratory Rate 20 Blood Pressure 157/86 H Pulse Oximetry 96 Oxygen Delivery Method Room Air BMI result Body Mass Index 21.9 hypertensive and tachy, vitals otherwise wnl. Const General: cooperative, comfortable, no acute distress and alert Orientation/consciousness: patient oriented x3 Limitations: no limitations HENMT Head: Yes normal to inspection, Yes No palpable skull fracture present, Yes normocephalic and Yes atraumatic Teeth and gingiva: caries and poor dentition Cardio Rate: tachycardic Rhythm: regular rhythm GI Other: + abd soft, nondistended, ttp of RUQ and RLQ without rebound or guarding. nomoactive bs x4. negative rovsing sign and mcburney point tenderness. Inspection: Yes normal to inspection General: Yes no CVA tenderness Back/Spine/Pelvis Back: no CVA tenderness Skin General skin exam: no rashes or lesions noted Neuro General: patient oriented x3 and gait normal Deep tendon reflexes (DTR's): Right patellar reflex intensity grade: 2+ and Left patellar reflex intensity grade: 2+ Course Course Course Narrative: 2030-- Patient noted to be tachycardic and hypertensive. Random glucose on arrival was noted to be 471. POC at present is 370. Chronic microcytic anemia when compared to priors. H&H stable. No anion gap. No LORETTA. Slightly hyponatremic. Betahydroxybutarate wnl. > DKA unlikely. 1 liter of normal saline ordered along with 5 units of regular insulin as patient is insulin naive. > ct abd/ pelvis and urine pending 2109-- Patient stable at the end of my shift. Sign out give to my colleague, Chandler SANTILLAN pending CT scan read and repeat POC glucose. Reevaluation(s) Reevaluation #1: Reviewed patient's CT scan without any concerning abnormalities. Patient's glucose is coming down appropriately, she has no evidence of DKA. Will discharge the patient and refill her metformin that she has not had for a few days. She reports that she is in the process of getting a new PCP for medication refills, I will also prescribe her gabapentin for 1 month only. Patient's UA had 1+ bacteria with 6-10 white cells. She reports that she is symptomatic with UTI symptoms will treat with 3 days of Macrobid Time: 22:09 Medical Decision Making Medical Decision Making [facility] Narrative: 43 year old female with pmhx significant for T2DM (on Metformin 1000mg BID), diabetic neuropathy, RA, migraines, and anemia presents to the ED today for evaluation of abdominal pain x7 days. Tachycardic and hypertensive. vitals otherwise wnl. Abdomen soft, nondistended, ttp of the RUQ and RLQ without rebound or guarding. normoactive bs x4. no cvat b/l. diminished sensation to bilateral feet, extending group home up lower legs. ambulating with steady gait. patellar dtrs intact b/l. Differential diagnosis includes hyperglycemia, DKA, hyperosmolar hyperglycemia, UTI, pyelonephritis, diverticulosis/diverticulitis, constipation, neuropathy, electrolyte abnormality, anemia. Lower suspicion for ischemic bowel, SBO, appendicitis, acute abdomen, guillain barre. POC, labs, UA, ct abd/pelvis ordered. Differential Diagnosis Differential Diagnoses: The differential diagnosis associated with the presentation includes as above. Admission/Observation Consideration of admission/observation: Escalation of care including admission/observation considered In this hyperglycemic patient with chronically elevated sugars, admission was considered. Lab Data [facility] Lab Attestation statement: I reviewed the patient's lab results. as above. 06/21/23 18:51 06/21/23 18:51 Labs: Lab Results 06/21/23 06/21/23 06/21/23 Range/Units 18:51 20:08 20:39 WBC 9.9 (4.8-10.8) X10*3/uL RBC 4.69 (4.20-5.50) X10*6/uL Hgb 9.0 L (12.0-16.0) g/dl Hct 31.4 L (37.0-47.0) % MCV 67.0 L (80.0-98.0) fL MCH 19.2 L (27.0-33.0) pg MCHC 28.7 L (31.0-35.0) g/dl RDW 18.8 H (11.0-16.0) % Plt Count 389 (160-400) X10*3/uL MPV 9.9 (9.4-12.3) fL Immature Gran % (Auto) 0.4 (0.0-0.4) % Neut % (Auto) 52.0 (45-73) % Lymph % (Auto) 37.5 (20-40) % [place] % (Auto) 7.8 (2-11) % Eos % (Auto) 1.8 (0-4) % Baso % (Auto) 0.5 (0-2) % Lymph # (Auto) 3.7 (1.2-4.9) X10*3/uL [place] # (Auto) 0.8 (0.1-1.2) X10*3/uL Eos # (Auto) 0.2 (0.0-0.4) X10*3/uL Baso # (Auto) 0.1 (0.0-0.2) X10*3/uL Abs Immat Gran (auto) 0.04 H (0.00-0.03) X10*3/uL Absolute Neuts (auto) 5.2 (2.0-8.3) x10*3/uL Absolute Nucleated RBC 0.000 (0.0-0.012) X10*3/uL Nucleated RBC % (auto) 0.0 (0.0-0.2) /100WBC Sodium 134 L (135-145) mmol/L Potassium 3.8 (3.3-5.1) mmol/L Chloride 101 (96-108) mmol/L Carbon Dioxide 22 (22-29) mmol/L Anion Gap 15 (12-20) BUN 5 L (9-16) mg/dL Creatinine 0.77 (0.5-1.4) mg/dL Estim Creat Clear Calc 92.5 Estimated GFR > 60 POC Glucose 370 H* (60-115) mg/dL Random Glucose 471 H* (60-115) mg/dL Calcium 9.6 (8.4-10.2) mg/dL Total Bilirubin 0.2 (0.0-1.0) mg/dL AST 9 (5-31) U/L ALT 11 (0-31) U/L Alkaline Phosphatase 92 (39-117) U/L Total Protein 8.2 H (6.5-8.0) g/dL Albumin 3.9 (3.5-5.0) g/dL Beta-Hydroxybutyrate 0.15 (0.02-0.27) mmol/L Beta HCG, Quant < 2 mIU/mL Urine Color Yellow Urine Appearance Clear Urine pH 6.5 (5.0-9.0) Ur Specific [place] >= 1.030 H (1.005-1.025) Urine Protein Negative (Neg-Trace) mg/dL Urine Glucose (UA) >=1000 H (Negative) mg/dL Urine Ketones Negative (Negative) mg/dL Urine Blood Negative (Negative) Urine Nitrite Negative (Negative) Ur Leukocyte Esterase Trace H (Negative) Urine RBC 0-2 (0-2) /HPF Urine WBC 11-20 H (0-5) /HPF Ur Squamous Epith Cells 6-10 (0-2) /HPF Urine Bacteria 1+ (None Seen) Hyaline Casts 0-2 (0-2) /LPF 06/20/ Range/Units 21:23 WBC (4.8-10.8) X10*3/uL RBC (4.20-5.50) X10*6/uL Hgb (12.0-16.0) g/dl Hct (37.0-47.0) % MCV (80.0-98.0) fL MCH (27.0-33.0) pg MCHC (31.0-35.0) g/dl RDW (11.0-16.0) % Plt Count (160-400) X10*3/uL MPV (9.4-12.3) fL Immature Gran % (Auto) (0.0-0.4) % Neut % (Auto) (45-73) % Lymph % (Auto) (20-40) % [place] % (Auto) (2-11) % Eos % (Auto) (0-4) % Baso % (Auto) (0-2) % Lymph # (Auto) (1.2-4.9) X10*3/uL [place] # (Auto) (0.1-1.2) X10*3/uL Eos # (Auto) (0.0-0.4) X10*3/uL Baso # (Auto) (0.0-0.2) X10*3/uL Abs Immat Gran (auto) (0.00-0.03) X10*3/uL Absolute Neuts (auto) (2.0-8.3) x10*3/uL Absolute Nucleated RBC (0.0-0.012) X10*3/uL Nucleated RBC % (auto) (0.0-0.2) /100WBC Sodium (135-145) mmol/L Potassium (3.3-5.1) mmol/L Chloride (96-108) mmol/L Carbon Dioxide (22-29) mmol/L Anion Gap (12-20) BUN (9-16) mg/dL Creatinine (0.5-1.4) mg/dL Estim Creat Clear Calc Estimated GFR POC Glucose 277 H (60-115) mg/dL Random Glucose (60-115) mg/dL Calcium (8.4-10.2) mg/dL Total Bilirubin (0.0-1.0) mg/dL AST (5-31) U/L ALT (0-31) U/L Alkaline Phosphatase (39-117) U/L Total Protein (6.5-8.0) g/dL Albumin (3.5-5.0) g/dL Beta-Hydroxybutyrate (0.02-0.27) mmol/L Beta HCG, Quant mIU/mL Urine Color Urine Appearance Urine pH (5.0-9.0) Ur Specific [place] (1.005-1.025) Urine Protein (Neg-Trace) mg/dL Urine Glucose (UA) (Negative) mg/dL Urine Ketones (Negative) mg/dL Urine Blood (Negative) Urine Nitrite (Negative) Ur Leukocyte Esterase (Negative) Urine RBC (0-2) /HPF Urine WBC (0-5) /HPF Ur Squamous Epith Cells (0-2) /HPF Urine Bacteria (None Seen) Hyaline Casts (0-2) /LPF Independent Interpretation I performed an independent interpretation of an: CT Scan Interpretation: I have personally reviewed CT scan abd/pelvis and agree with radiologist's interpretation. Radiology Impression Discussion of test interpretation with radiology: I have reviewed the radiologist's reading. Radiologist Impression: EXAMINATION: CT ABDOMEN AND PELVIS WITHOUT IV CONTRAST CLINICAL INFORMATION: Left upper quadrant pain COMPARISON: CT abdomen/pelvis 02/12/2022 TECHNIQUE: Multiple axial images were obtained from the superior aspect of the liver through the pubic symphysis without intravenous contrast. Images were evaluated on independent dedicated 3-D workstation and 3-D images were reconstructed with concurrent radiologist supervision and subsequently interpreted. Oral contrast was not administered. This CT examination was performed using dose optimization techniques as appropriate, variously including the following: *Automated exposure control *Adjustment of mA and/or kV according to patient size (this includes techniques or standardized protocols for targeted exams where dose is matched to indication/reason for exam; i.e. extremities or head) *Use of iterative reconstruction technique DLP: 466 mGy-cm FINDINGS: LUNG BASES: The visualized lung bases are clear. CARDIOMEDIASTINUM: The visualized heart is normal in size without pericardial effusion. No coronary artery calcification. LIVER: Homogeneous in attenuation. Normal in size. GALLBLADDER: Absent BILIARY SYSTEM: No intrahepatic or extrahepatic biliary dilation. PANCREAS: Homogeneous in attenuation. SPLEEN: Normal in size. GENITOURINARY: No contour deforming masses. No perinephric fluid collection. No renal calculi. No hydroureteronephrosis. ADRENAL GLANDS: Unremarkable. REPRODUCTIVE: Uterus and and bilateral adnexa are unremarkable. GASTROINTESTINAL: The visualized alimentary tract is normal in course. No evidence of obstruction. APPENDIX: The appendix is seen in its entirety and is unremarkable. PERITONEUM: No pneumoperitoneum. No intra-abdominal fluid collection. VASCULATURE: No abdominal aortic aneurysm. LYMPH NODES: Numerous scattered mesenteric lymph nodes, nonspecific. SOFT TISSUES/MUSCULOSKELETAL: There is no acute fracture or significant focal osseous lesion. CT/CT abdomen pelvis wo IV con IMPRESSION: No acute pathology of the abdomen or pelvis on this noncontrast study. Fleischner guidelines were followed. External Record Review External record reviewed: Inpatient record, Office record, Outpatient record, Prior outpatient labs, Prior outpatient radiology, Primary care record and Outside ED record Prescription Management I considered prescription management with: Other (gabapentin, metformin) Chronic Conditions Patient?s care impacted by: Diabetes and Other (neuropathy) Social Determinants Patient?s care significantly limited by Social Determinants of Health including: Other Social Determinant of Health Medications Administered Discontinued Medications Generic Name Dose Route Start Last Admin Trade Name Freq PRN Reason Stop Dose Admin Gabapentin 400 mg 06/21/23 22:08 06/21/23 22:15 Gabapentin 400 Mg Capsule PO 06/21/23 22:09 400 mg ONCE ONE Administration Sodium Chloride 1,000 mls @ 999 mls/hr 06/21/23 20:15 06/21/23 21:24 Ns IV 06/21/23 21:15 Infused .Q1H1M [place] Infusion Insulin Human Regular 5 unit 06/21/23 20:21 06/21/23 20:37 Insulin Regular, Human 100 Unit/Ml 3 Ml Vial IVPUSH 06/21/23 20:22 5 unit ONCE ONE Administration Metformin HCl 1,000 mg 06/21/23 22:08 06/21/23 22:15 Metformin Hcl 1,000 Mg Tablet PO 06/21/23 22:09 1,000 mg ONCE ONE Administration Morphine Sulfate 4 mg 06/21/23 20:46 06/21/23 20:55 Morphine Sulfate 4 Mg/Ml Cartridge IVPUSH 06/21/23 20:47 4 mg ONCE ONE Administration Protocol Critical Care Time Critical Care Time Critical Care Time: Yes Total Critical Care Time: 130 Attestation: Critical care time in the amount of 130 minutes has been provided to the patient in terms of direct patient care, frequent reevaluation, review and interpretation of medical data and results, and management of potentially life-threatening conditions. This is all outside of any medical procedures. Discharge Plan Discharge Clinical Impression: Acute hyperglycemia, Type 2 diabetes mellitus, Diabetic neuropathy, type II diabetes mellitus, UTI (urinary tract infection) Patient Disposition: Home, Self-Care Instructions: Urinary Tract Infection in Women (ED), Diabetic Hyperglycemia (ED) Additional Instructions: Take Macrobid twice daily for the next 3 days. Take her metformin and gabapentin as prescribed Drink lots of water It is important that you follow-up with your primary doctor to get further medication refills going forward Return for new or worsening symptoms Prescriptions: New metformin 1,000 mg tablet 1,000 mg PO BID Qty: 60 0RF gabapentin 400 mg capsule 400 mg PO BID Qty: 60 0RF nitrofurantoin monohyd/m-cryst [Macrobid] 100 mg capsule 100 mg PO Q12H 3 Days Qty: 6 0RF Rx Instructions: must administer with a meal/food No Action metronidazole [Flagyl] 500 mg tablet 500 mg PO BID Qty: 7 0RF doxycycline hyclate 100 mg capsule 100 mg PO BID Qty: 14 0RF ibuprofen 600 mg tablet 600 mg PO Q6-8H PRN (Reason: pain) Qty: 30 0RF metformin 1,000 mg Tablet 1,000 mg PO BID cephalexin [Keflex] 500 mg capsule 500 mg PO Q6H 10 Days Qty: 40 0RF phenazopyridine [Pyridium] 100 mg tablet 100 mg PO TID PRN (Reason: pain) Qty: 10 0RF oxycodone-acetaminophen [Percocet] 5-325 mg tablet 1 tab PO Q6H PRN (Reason: pain) Qty: 10 0RF
[2023-06-21] MEDS: Insulin Regular, Human 100 UNIT/ML 3 ML VIAL IVPUSH (20:37)
[2023-06-21 20:47] LABS: Appearance Urine Clear; Color Urine Yellow; Glucose Urine UA >=1000 mg/dL (Negative); Leukocyte Esterase Urine Trace (Negative); Nitrite Urine Negative (Negative); PH 6.5 (5.0-9.0); Specific Gravity - Urine >= 1.030 (1.005-1.025); UMIC TRIGGER UACC YES; Urine Blood Negative (Negative); Urine Ketones Negative (Negative); Urine Protein Negative (Neg-Trace)
[2023-06-21 20:52] LABS: Bacteria Urine 1+ (None Seen); Hyaline Casts Urine 0-2 /LPF (0-2); RBC Urine 0-2 /HPF (0-2); UACC Culture Trigger YES
[2023-06-21] MEDS: Morphine Sulfate 4 MG/ML CARTRIDGE IVPUSH (20:55)
[2023-06-21 20:58] VITALS: BP 157/86; PULSE 118; RESP 20; O2SAT 96
[2023-06-21 21:02] LABS: HCG Quantitative < 2 mIU/mL
[2023-06-21 21:26] LABS: Glucose, Whole Blood 277 mg/dL (60-115)
[2023-06-21] MEDS: metFORMIN HCl 1,000 MG TABLET 1000 MG PO (22:15)
[2023-06-21] MEDS: Gabapentin 400 MG CAPSULE PO (22:15)
[2023-06-21 22:54] VITALS: BP 157/86; PULSE 116; RESP 18; TEMP 36.8; O2SAT 96
== END 2023-06-21 22:30 | disposition home or self-care (01) ==
PROVIDERS: Physician Assistant Medical; Emergency Provider Emergency Medicine
DX: N39.0 Urinary tract infection, site not specified (principal); E11.65 Type 2 diabetes mellitus with hyperglycemia; E11.40 Type 2 diabetes mellitus with diabetic neuropathy, unspecified; Z79.84 Long term (current) use of oral hypoglycemic drugs; Z79.899 Other long term (current) drug therapy
CPT/HCPCS: 36415; 74176; 80053; 81001; 82010; 82947; 84702; 85025; 87086; 87147; 93005; 96361; 96374; 96375; 99284; J2270

== ENCOUNTER → 2023-06-21 18:45 | Outpatient (BNV) | payer MEDICAID, SELFPAY | PROVIDERS: Emergency Provider Emergency Medicine; Visit Provider Internal Medicine Cardiovascular Disease | DX: R10.9 Unspecified abdominal pain (principal) | CPT/HCPCS: 93010 ==

== ENCOUNTER 2023-08-07 11:56 | Emergency (ER) | payer MEDICAID, SELFPAY ==
--- NOTE | ~2023-08-07 | CT_ITS ---
EXAMINATION: CT ABDOMEN AND PELVIS WITH CONTRAST CLINICAL INFORMATION: Left lower quadrant abdominal pain COMPARISON: CT abdomen pelvis June 21, 2023 TECHNIQUE: Multidetector volumetric images were obtained from the superior aspect of the liver through the pubic symphysis following administration 85 mL of Omnipaque 350 intravenous contrast. Sagittal and coronal reformatted images were obtained on the technologist's workstation. Oral contrast: No This CT examination was performed using dose optimization techniques as appropriate, variously including the following: *Automated exposure control *Adjustment of mA and/or kV according to patient size (this includes techniques or standardized protocols for targeted exams where dose is matched to indication/reason for exam; i.e. extremities or head) *Use of iterative reconstruction technique DLP: 471 mGy-cm FINDINGS: LUNG BASES: The visualized lung bases are unremarkable. LIVER, GALLBLADDER, AND BILIARY TREE: The liver is normal in size, shape, and attenuation. No focal hepatic lesion or biliary ductal dilatation is present. Status post cholecystectomy PANCREAS: Unremarkable. SPLEEN: Unremarkable. ADRENAL GLANDS: Unremarkable. KIDNEYS AND URETERS: The kidneys are normal in size, shape, and attenuation. No hydronephrosis, hydroureter, or calculi seen. No perinephric stranding. BLADDER: Unremarkable. GASTROINTESTINAL TRACT: The small and large bowel are unremarkable. The appendix is unremarkable. ABDOMINAL WALL: No significant hernia is appreciated. LYMPH NODES: Normal. VASCULAR: Unremarkable. PELVIC VISCERA: Unremarkable. OSSEOUS STRUCTURES: Unremarkable. CT/CT abdomen pelvis w IV con IMPRESSION: No significant abnormality. Fleischner guidelines were followed.
[2023-08-07 12:02] VITALS: BP 123/82; PULSE 90; RESP 18; TEMP 36.1; O2SAT 100; BMI 22.9
--- NOTE | 2023-08-07 12:03 | ED_ITS ---
<Statement entered by Luke Talley MD - 09/07/23 13:26> Duplicate note Please refer to my other note from the same day for details regarding this encounter HPI - General Adult General Chief complaint: Abdominal Pain Stated complaint: L abd pain and feet pain Time Seen by Provider: 08/07/23 12:59 Related Data Home Medications ?Medication ?Instructions ?Recorded ?Confirmed metformin 1,000 mg tablet 1,000 mg PO BID 01/07/20 01/07/20 Previous Rx's ?Medication ?Instructions ?Recorded cephalexin 500 mg capsule (Keflex) 500 mg PO Q6H 10 days #40 caps 01/07/20 oxycodone-acetaminophen 5 mg-325 1 tab PO Q6H PRN pain #10 tabs 01/07/20 mg tablet (Percocet) phenazopyridine 100 mg tablet 100 mg PO TID PRN pain 6 doses #10 01/07/20 (Pyridium) tabs doxycycline hyclate 100 mg capsule 100 mg PO BID #14 caps 05/31/20 ibuprofen 600 mg tablet 600 mg PO Q6-8H PRN pain #30 tabs 05/31/20 metronidazole 500 mg tablet 500 mg PO BID #7 tabs 05/31/20 (Flagyl) gabapentin 400 mg capsule 400 mg PO BID #60 caps 06/21/23 metformin 1,000 mg tablet 1,000 mg PO BID #60 tabs 06/21/23 nitrofurantoin 100 mg PO Q12H 3 days #6 caps 06/21/23 monohydrate/macrocrystals 100 mg capsule (Macrobid) metformin 1,000 mg tablet 1,000 mg PO BID 90 days #180 tabs 06/23/23 calcium carbonate (Tums) 200 mg PO TID #60 tabs 08/07/23 gabapentin 400 mg capsule 400 mg PO BID #30 caps 08/07/23 pantoprazole 40 mg tablet,delayed 40 mg PO DAILY #60 tabs 08/07/23 release nitrofurantoin 100 mg PO BID 7 days #14 caps 08/11/23 monohydrate/macrocrystals 100 mg capsule Allergies Allergy/AdvReac Type Severity Reaction Status Date / Time iron dextran complex AdvReac Intermediate SOB, Verified 08/07/23 12:06 [IRON DEXTRAN COMPLEX] COUGHING, FLUSHING, PMFSH Past Medical History Medical History Neuropathy Migraine Anemia Rheumatoid arthritis Diabetes Surgical History Hx of cholecystectomy H/O tubal ligation Social History Social History Alcohol intake: current Alcohol intake frequency: a few times a month Smoked in Last 30 Days: Yes Use of substances other than those prescribed or required for medical reasons: No Advance Directives: No Advance Directives Information Provided: No Patient : No Physical Exam ED Vital Signs: BMI result Body Mass Index 22.9 Course Course Course Narrative: This is a rapid medical exam performed by Daylin Ortega NP: Additional HPI, ROS, PE not included below will be deferred to primary provider. Patient is a 43-year-old female with history of cholecystectomy, tubal ligation, migraine, neuropathy, anemia, RA, DM presenting to the emergency department with complaint of left lower quadrant abdominal pain radiating to her back. Denies fevers. Denies nausea, vomiting, diarrhea, constipation. Denies urinary sxs. Plan: UA, labs Medications Administered Discontinued Medications Generic Name Dose Route Start Last Admin Trade Name Freq PRN Reason Stop Dose Admin Acetaminophen 975 mg 08/07/23 13:08 08/07/23 13:18 Acetaminophen 325 Mg Tablet PO 08/07/23 13:09 975 mg ONCE ONE Administration Famotidine 20 mg 08/07/23 13:08 08/07/23 13:18 Famotidine/Pf 20 Mg/2 Ml Vial IVPUSH 08/07/23 13:09 20 mg ONCE ONE Administration Iohexol 85 ml 08/07/23 13:48 08/07/23 13:49 Iohexol 350 Mg/Ml 100 Ml Infus..Btl IV 08/07/23 13:49 85 ml ONCE ONE Administration Ondansetron HCl 4 mg 08/07/23 13:08 08/07/23 13:18 Ondansetron Hcl 4 Mg/2 Ml Vial IVPUSH 08/07/23 13:09 4 mg ONCE ONE Administration Medical Decision Making Lab Data 08/07/23 12:20 08/07/23 12:20 Labs: Lab Results 05/10/24 05/10/24 Range/Units 12:20 14:16 WBC 7.7 (4.8-10.8) X10*3/uL RBC 4.29 (4.20-5.50) X10*6/uL Hgb 8.2 L (12.0-16.0) g/dl Hct 28.9 L (37.0-47.0) % MCV 67.4 L (80.0-98.0) fL MCH 19.1 L (27.0-33.0) pg MCHC 28.4 L (31.0-35.0) g/dl RDW 18.4 H (11.0-16.0) % Plt Count 323 (160-400) X10*3/uL MPV 9.7 (9.4-12.3) fL Immature Gran % (Auto) 0.4 (0.0-0.4) % Neut % (Auto) 54.8 (45-73) % Lymph % (Auto) 34.9 (20-40) % [place] % (Auto) 7.5 (2-11) % Eos % (Auto) 1.8 (0-4) % Baso % (Auto) 0.6 (0-2) % Lymph # (Auto) 2.7 (1.2-4.9) X10*3/uL [place] # (Auto) 0.6 (0.1-1.2) X10*3/uL Eos # (Auto) 0.1 (0.0-0.4) X10*3/uL Baso # (Auto) 0.1 (0.0-0.2) X10*3/uL Abs Immat Gran (auto) 0.03 (0.00-0.03) X10*3/uL Absolute Neuts (auto) 4.2 (2.0-8.3) x10*3/uL Absolute Nucleated RBC 0.000 (0.0-0.012) X10*3/uL Nucleated RBC % (auto) 0.0 (0.0-0.2) /100WBC PT 10.9 L (11.1-13.3) SEC INR 0.9 (0.9-1.1) Sodium 137 (135-145) mmol/L Potassium 4.3 (3.3-5.1) mmol/L Chloride 105 (96-108) mmol/L Carbon Dioxide 24 (22-29) mmol/L Anion Gap 12 (12-20) BUN 11 (9-16) mg/dL Creatinine 0.70 (0.5-1.4) mg/dL Estim Creat Clear Calc 101.7 Estimated GFR > 60 Random Glucose 316 H (60-115) mg/dL Calcium 8.6 D (8.4-10.2) mg/dL Total Bilirubin 0.2 (0.0-1.0) mg/dL AST 10 (5-31) U/L ALT 10 (0-31) U/L Alkaline Phosphatase 76 (39-117) U/L Total Protein 7.7 (6.5-8.0) g/dL Albumin 3.6 (3.5-5.0) g/dL Amylase 237 H (28-100) U/L Lipase 38 (8-78) U/L Beta HCG, Quant < 2 mIU/mL Urine Color Yellow Urine Appearance Clear Urine pH 6.5 (5.0-9.0) Ur Specific [place] >= 1.030 H (1.005-1.025) Urine Protein Negative (Neg-Trace) mg/dL Urine Glucose (UA) >=1000 H (Negative) mg/dL Urine Ketones Negative (Negative) mg/dL Urine Blood Negative (Negative) Urine Nitrite Positive H (Negative) Ur Leukocyte Esterase Negative (Negative) Urine RBC 0-2 (0-2) /HPF Urine WBC 11-20 H (0-5) /HPF Ur Squamous Epith Cells 3-5 (0-2) /HPF Urine Bacteria 4+ (None Seen) Hyaline Casts 0-2 (0-2) /LPF Discharge Plan Discharge Clinical Impression: Abdominal pain, Gastritis, Diabetes, Anemia Patient Disposition: Home, Self-Care Additional Instructions: You were seen in the emergency room for abdominal pain. Your blood work showed a decreased hemoglobin to 8.2 likely secondary to iron deficiency anemia. We recommend you to establish care with a primary care provider so that the this value can be repeated. Given allergy to iron at this time we will not recommend starting iron. Return to the emergency room if you develop chest pain, shortness of breath or if your symptoms worsen CT of your abdomen was unremarkable For your pain we started you on a medication called pantoprazole 40 mg to take once a day in the morning Medication will take few weeks to have complete affect in the meantime you can use tums tabs up to 3 times a day. Prescriptions: New pantoprazole 40 mg tablet,delayed release (DR/EC) 40 mg PO DAILY Qty: 60 0RF gabapentin 400 mg capsule 400 mg PO BID Qty: 30 0RF calcium carbonate [Tums] 200 mg calcium (500 mg) tablet,chewable 200 mg PO TID Qty: 60 0RF nitrofurantoin monohyd/m-cryst 100 mg capsule 100 mg PO BID 7 Days Qty: 14 0RF Rx Instructions: must administer with a meal/food No Action metronidazole [Flagyl] 500 mg tablet 500 mg PO BID Qty: 7 0RF doxycycline hyclate 100 mg capsule 100 mg PO BID Qty: 14 0RF ibuprofen 600 mg tablet 600 mg PO Q6-8H PRN (Reason: pain) Qty: 30 0RF metformin 1,000 mg Tablet 1,000 mg PO BID cephalexin [Keflex] 500 mg capsule 500 mg PO Q6H 10 Days Qty: 40 0RF phenazopyridine [Pyridium] 100 mg tablet 100 mg PO TID PRN (Reason: pain) Qty: 10 0RF oxycodone-acetaminophen [Percocet] 5-325 mg tablet 1 tab PO Q6H PRN (Reason: pain) Qty: 10 0RF metformin 1,000 mg tablet 1,000 mg PO BID Qty: 60 0RF gabapentin 400 mg capsule 400 mg PO BID Qty: 60 0RF nitrofurantoin monohyd/m-cryst [Macrobid] 100 mg capsule 100 mg PO Q12H 3 Days Qty: 6 0RF Rx Instructions: must administer with a meal/food metformin 1,000 mg tablet 1,000 mg PO BID 90 Days Qty: 180 0RF Interventions: ED Discharge Assessment Last Done: 08/07/23 16:09 Discharge Date/Time: 08/07/23 16:10 Print Language: Vietnamese
[2023-08-07 12:24] LABS: MANUAL DIFF FLAG NO
[2023-08-07 12:26] LABS: Basophils Absolute Auto 0.1 X10*3/uL (0.0-0.2); Basophils Percent Auto 0.6 % (0-2); Eosinophils Absolute Auto 0.1 X10*3/uL (0.0-0.4); Eosinophils Percent Auto 1.8 % (0-4); Hematocrit 28.9 % (37.0-47.0); Hemoglobin 8.2 g/dl (12.0-16.0); Imm Gran Abs Auto 0.03 X10*3/uL (0.00-0.03); Imm Gran Pct Auto 0.4 % (0.0-0.4); Lymphocytes Absolute Auto 2.7 X10*3/uL (1.2-4.9); Lymphocytes Percent Auto 34.9 % (20-40); Mean Corpuscular HGB Conc 28.4 g/dl (31.0-35.0); Mean Corpuscular Hemoglobin 19.1 pg (27.0-33.0); Mean Corpuscular Volume 67.4 fL (80.0-98.0); Mean Platelet Volume 9.7 fL (9.4-12.3); Monocytes Absolute Auto 0.6 X10*3/uL (0.1-1.2); Monocytes Percent Auto 7.5 % (2-11); Neutrophils Absolute Auto 4.2 x10*3/uL (2.0-8.3); Neutrophils Percent Auto 54.8 % (45-73); Platelet Count 323 X10*3/uL (160-400); Red Blood Count 4.29 X10*6/uL (4.20-5.50); Red Cell Distribution Width 18.4 % (11.0-16.0); White Blood Count 7.7 X10*3/uL (4.8-10.8)
[2023-08-07 12:43] LABS: INTERNATIONAL NORM RATIO 0.9 (0.9-1.1); Prothrombin Time 10.9 SEC (11.1-13.3)
[2023-08-07 12:45] LABS: Alanine Aminotransferase 10 U/L (0-31); Albumin Level 3.6 g/dL (3.5-5.0); Alkaline Phosphatase 76 U/L (39-117); Amylase 237 U/L (28-100); Anion Gap 12 (12-20); Aspartate Amino Transferase 10 U/L (5-31); Bilirubin Total 0.2 mg/dL (0.0-1.0); Blood Urea Nitrogen 11 mg/dL (9-16); Calcium 8.6 mg/dL (8.4-10.2); Carbon Dioxide 24 mmol/L (22-29); Chloride 105 mmol/L (96-108); Creatinine Clr Calc Pharmacy 101.7; Estimated Glomerular Filt Rate > 60; Glucose Random 316 mg/dL (60-115); HCG Quantitative < 2 mIU/mL; Lipase 38 U/L (8-78); Potassium 4.3 mmol/L (3.3-5.1); Sodium 137 mmol/L (135-145); Total Protein 7.7 g/dL (6.5-8.0)
--- NOTE | 2023-08-07 13:09 | ED.ABDPAIN ---
HPI - Abdominal Pain General Chief Complaint: Abdominal Pain Stated Complaint: L abd pain and feet pain Time Seen by Provider: 08/07/23 12:59 Source: patient Limitations: no limitations History of Present Illness HPI narrative: 43 years old with past medical history of diabetes, peripheral neuropathy, migraine, surgical history of cholecystectomy and tubal ligation, presents emergency room for left upper quadrant pain with radiation to the back. Patient reports no chills or fever, the pain is intermittent, 9/10 when present, and when present lasting for ?hours?. Patient denies dark stools and bloody stools. Last bowel movement was yesterday. Patient denies dysuria or hematuria. No chest pain, shortness of breath or cough. No chills or fever Patient's reports that she has been recently kicked out of her PCP practice due to change of insurance and has been unable to establish care with another provider. At the time of assessment patient reports the pain is 9/10 but does not appear to be in extreme discomfort. Related Data Home Medications ?Medication ?Instructions ?Recorded ?Confirmed metformin 1,000 mg tablet 1,000 mg PO BID 01/07/20 01/07/20 Previous Rx's ?Medication ?Instructions ?Recorded cephalexin 500 mg capsule (Keflex) 500 mg PO Q6H 10 days #40 caps 01/07/20 oxycodone-acetaminophen 5 mg-325 1 tab PO Q6H PRN pain #10 tabs 01/07/20 mg tablet (Percocet) phenazopyridine 100 mg tablet 100 mg PO TID PRN pain 6 doses #10 01/07/20 (Pyridium) tabs doxycycline hyclate 100 mg capsule 100 mg PO BID #14 caps 05/31/20 ibuprofen 600 mg tablet 600 mg PO Q6-8H PRN pain #30 tabs 05/31/20 metronidazole 500 mg tablet 500 mg PO BID #7 tabs 05/31/20 (Flagyl) gabapentin 400 mg capsule 400 mg PO BID #60 caps 06/21/23 metformin 1,000 mg tablet 1,000 mg PO BID #60 tabs 06/21/23 nitrofurantoin 100 mg PO Q12H 3 days #6 caps 06/21/23 monohydrate/macrocrystals 100 mg capsule (Macrobid) metformin 1,000 mg tablet 1,000 mg PO BID 90 days #180 tabs 06/23/23 calcium carbonate (Tums) 200 mg PO TID #60 tabs 08/07/23 gabapentin 400 mg capsule 400 mg PO BID #30 caps 08/07/23 pantoprazole 40 mg tablet,delayed 40 mg PO DAILY #60 tabs 08/07/23 release Allergies Allergy/AdvReac Type Severity Reaction Status Date / Time iron dextran complex AdvReac Intermediate SOB, Verified 08/07/23 12:06 [IRON DEXTRAN COMPLEX] COUGHING, FLUSHING, Review of Systems Review of Systems Yes all other systems are reviewed and are negative PMFSH Past Medical History Medical History Neuropathy Migraine Anemia Rheumatoid arthritis Diabetes Surgical History Hx of cholecystectomy H/O tubal ligation Social History Social History Alcohol intake: current Alcohol intake frequency: a few times a month Smoked in Last 30 Days: Yes Use of substances other than those prescribed or required for medical reasons: No Advance Directives: No Advance Directives Information Provided: No Patient : No Physical Exam ED Vital Signs: Vital Signs - 24 hr 08/07/23 12:02 08/07/23 13:13 Temperature 97.0 F 97.9 F Pulse Rate 90 89 Respiratory Rate 18 16 Blood Pressure 123/82 126/88 Pulse Oximetry 100 99 Oxygen Delivery Method Room Air Room Air BMI result Body Mass Index 22.9 General: Alert, Not in Distress Skin: No rash, warm HEENT: Atraumatic, No Exudate or Pharyngeal Erythema Resp: Normal Breath sounds bilaterally Cardio: Regular rate and Rhythm, Normal S1, S2 ABD: Abd tender in UQ and L flank, no guarding or rebound. Normal Bowel sounds. : L cva tenderness. no R cva tend Neuro: Alert, oriented x4, PERRL Strenght 5/5 on all extremities Sensation is preserved in both lower and upper extremities Index to nose: normal Cranial Nerves II-XII grossly intact No dysarthria, or aphasia No neglet. Visual thibodeaux are normal bilaterally Psych: Cooperative, NO SI Course Reevaluation(s) Reevaluation #1: I explained the patient that given her comorbidities including diabetes, iron deficiency anemia it is important for her to find a new PCP that can assess this chronic long-term problem. Patient understands and agrees. Time: 13:22 Reevaluation #2: Pain is improved, reports of the CT scan is unremarkable. At this time I do not think patient requires admission or further observation. We will DC home. Time: 15:48 Medical Decision Making Medical Decision Making [facility] Narrative: Patient presented to the emergency room for abdominal pain that is localized in the left upper quadrant, left flank radiation to the back but not associated with urinary symptoms. Patient reported the pain is 9/10, on physical exam CVA tenderness on the left , no guarding or rebound, possible differential diagnosis include kidney stone, diverticulitis, gastritis I personally reviewed the patient's blood work that showed a mildly elevated amylase, this is something that can be seen in pancreatitis however given physical examined type pain I think this is less likely even in consideration of normal lipase, amylase can also increase in gastritis and on other intra-abdominal process. Plan Analgesia CT abdomen and pelvis with contrast Admission/Observation Consideration of admission/observation: Escalation of care including admission/observation considered Lab Data [facility] Lab Attestation statement: I reviewed the patient's lab results. I personally reviewed the patient's blood work that showed hemoglobin of 8.2, patient last value was 9, does not have episodes of bloody or dark stools and with a normal BUN I think this is most likely secondary to iron deficiency anemia even in consideration of low and MCV. Patient told me that she was diagnosed with low iron in the past but is not taking any iron since she had shortness of breath after the use of it. 08/07/23 12:20 08/07/23 12:20 Labs: Lab Results 08/07/23 08/07/23 Range/Units 12:20 14:16 WBC 7.7 (4.8-10.8) X10*3/uL RBC 4.29 (4.20-5.50) X10*6/uL Hgb 8.2 L (12.0-16.0) g/dl Hct 28.9 L (37.0-47.0) % MCV 67.4 L (80.0-98.0) fL MCH 19.1 L (27.0-33.0) pg MCHC 28.4 L (31.0-35.0) g/dl RDW 18.4 H (11.0-16.0) % Plt Count 323 (160-400) X10*3/uL MPV 9.7 (9.4-12.3) fL Immature Gran % (Auto) 0.4 (0.0-0.4) % Neut % (Auto) 54.8 (45-73) % Lymph % (Auto) 34.9 (20-40) % [place] % (Auto) 7.5 (2-11) % Eos % (Auto) 1.8 (0-4) % Baso % (Auto) 0.6 (0-2) % Lymph # (Auto) 2.7 (1.2-4.9) X10*3/uL [place] # (Auto) 0.6 (0.1-1.2) X10*3/uL Eos # (Auto) 0.1 (0.0-0.4) X10*3/uL Baso # (Auto) 0.1 (0.0-0.2) X10*3/uL Abs Immat Gran (auto) 0.03 (0.00-0.03) X10*3/uL Absolute Neuts (auto) 4.2 (2.0-8.3) x10*3/uL Absolute Nucleated RBC 0.000 (0.0-0.012) X10*3/uL Nucleated RBC % (auto) 0.0 (0.0-0.2) /100WBC PT 10.9 L (11.1-13.3) SEC INR 0.9 (0.9-1.1) Sodium 137 (135-145) mmol/L Potassium 4.3 (3.3-5.1) mmol/L Chloride 105 (96-108) mmol/L Carbon Dioxide 24 (22-29) mmol/L Anion Gap 12 (12-20) BUN 11 (9-16) mg/dL Creatinine 0.70 (0.5-1.4) mg/dL Estim Creat Clear Calc 101.7 Estimated GFR > 60 Random Glucose 316 H (60-115) mg/dL Calcium 8.6 D (8.4-10.2) mg/dL Total Bilirubin 0.2 (0.0-1.0) mg/dL AST 10 (5-31) U/L ALT 10 (0-31) U/L Alkaline Phosphatase 76 (39-117) U/L Total Protein 7.7 (6.5-8.0) g/dL Albumin 3.6 (3.5-5.0) g/dL Amylase 237 H (28-100) U/L Lipase 38 (8-78) U/L Beta HCG, Quant < 2 mIU/mL Urine Color Yellow Urine Appearance Clear Urine pH 6.5 (5.0-9.0) Ur Specific [place] >= 1.030 H (1.005-1.025) Urine Protein Negative (Neg-Trace) mg/dL Urine Glucose (UA) >=1000 H (Negative) mg/dL Urine Ketones Negative (Negative) mg/dL Urine Blood Negative (Negative) Urine Nitrite Positive H (Negative) Ur Leukocyte Esterase Negative (Negative) Urine RBC 0-2 (0-2) /HPF Urine WBC 11-20 H (0-5) /HPF Ur Squamous Epith Cells 3-5 (0-2) /HPF Urine Bacteria 4+ (None Seen) Hyaline Casts 0-2 (0-2) /LPF Independent Interpretation I performed an independent interpretation of an: CT Scan (I personally reviewed and interpreted the patient CT abdomen, no active finding. ) External Record Review External record reviewed: Inpatient record Chronic Conditions Patient?s care impacted by: Diabetes Medications Administered Discontinued Medications Generic Name Dose Route Start Last Admin Trade Name Freq PRN Reason Stop Dose Admin Acetaminophen 975 mg 08/07/23 13:08 08/07/23 13:18 Acetaminophen 325 Mg Tablet PO 08/07/23 13:09 975 mg ONCE ONE Administration Famotidine 20 mg 08/07/23 13:08 08/07/23 13:18 Famotidine/Pf 20 Mg/2 Ml Vial IVPUSH 08/07/23 13:09 20 mg ONCE ONE Administration Iohexol 85 ml 08/07/23 13:48 08/07/23 13:49 Iohexol 350 Mg/Ml 100 Ml Infus..Btl IV 08/07/23 13:49 85 ml ONCE ONE Administration Ondansetron HCl 4 mg 08/07/23 13:08 08/07/23 13:18 Ondansetron Hcl 4 Mg/2 Ml Vial IVPUSH 08/07/23 13:09 4 mg ONCE ONE Administration Discharge Plan Discharge Clinical Impression: Abdominal pain, Gastritis, Diabetes, Anemia Patient Disposition: Home, Self-Care Additional Instructions: You were seen in the emergency room for abdominal pain. Your blood work showed a decreased hemoglobin to 8.2 likely secondary to iron deficiency anemia. We recommend you to establish care with a primary care provider so that the this value can be repeated. Given allergy to iron at this time we will not recommend starting iron. Return to the emergency room if you develop chest pain, shortness of breath or if your symptoms worsen CT of your abdomen was unremarkable For your pain we started you on a medication called pantoprazole 40 mg to take once a day in the morning Medication will take few weeks to have complete affect in the meantime you can use tums tabs up to 3 times a day. Prescriptions: New pantoprazole 40 mg tablet,delayed release (DR/EC) 40 mg PO DAILY Qty: 60 0RF gabapentin 400 mg capsule 400 mg PO BID Qty: 30 0RF calcium carbonate [Tums] 200 mg calcium (500 mg) tablet,chewable 200 mg PO TID Qty: 60 0RF No Action metronidazole [Flagyl] 500 mg tablet 500 mg PO BID Qty: 7 0RF doxycycline hyclate 100 mg capsule 100 mg PO BID Qty: 14 0RF ibuprofen 600 mg tablet 600 mg PO Q6-8H PRN (Reason: pain) Qty: 30 0RF metformin 1,000 mg Tablet 1,000 mg PO BID cephalexin [Keflex] 500 mg capsule 500 mg PO Q6H 10 Days Qty: 40 0RF phenazopyridine [Pyridium] 100 mg tablet 100 mg PO TID PRN (Reason: pain) Qty: 10 0RF oxycodone-acetaminophen [Percocet] 5-325 mg tablet 1 tab PO Q6H PRN (Reason: pain) Qty: 10 0RF metformin 1,000 mg tablet 1,000 mg PO BID Qty: 60 0RF gabapentin 400 mg capsule 400 mg PO BID Qty: 60 0RF nitrofurantoin monohyd/m-cryst [Macrobid] 100 mg capsule 100 mg PO Q12H 3 Days Qty: 6 0RF Rx Instructions: must administer with a meal/food metformin 1,000 mg tablet 1,000 mg PO BID 90 Days Qty: 180 0RF Print Language: Turkish
[2023-08-07 13:13] VITALS: BP 126/88; PULSE 89; RESP 16; TEMP 36.6; O2SAT 99
[2023-08-07] MEDS: ondansetron HCL 4 MG/2 ML VIAL IVPUSH (13:18)
[2023-08-07] MEDS: Acetaminophen 325 MG TABLET 975 MG PO (13:18)
[2023-08-07] MEDS: Famotidine/PF 20 MG/2 ML VIAL IVPUSH (13:18)
--- NOTE | 2023-08-07 13:26 | PC.NURSE ---
a&ox4. vss and up to date. pt presents to ED w/ LLQ abd pain that radiates to left flank. pt also verbalizes nausea. denies diarrhea, vomiting, fever, chills, urinary sx. abd tender w/ palpation. 20gIV placed in the right AC - medication administered per provider order. effectiveness pending. no sob/wob noted. respirations even and unlabored. plan of care ongoing. call dumont placed within reach.
[2023-08-07] MEDS: iohexoL 350 MG/ML 100 ML INFUS..BTL 85 ML IV (13:49)
[2023-08-07 14:28] LABS: Appearance Urine Clear; Color Urine Yellow; Glucose Urine UA >=1000 mg/dL (Negative); Leukocyte Esterase Urine Negative (Negative); Nitrite Urine Positive (Negative); PH 6.5 (5.0-9.0); Specific Gravity - Urine >= 1.030 (1.005-1.025); UMIC TRIGGER UACC YES; Urine Blood Negative (Negative); Urine Ketones Negative (Negative); Urine Protein Negative (Neg-Trace)
[2023-08-07 14:41] LABS: Bacteria Urine 4+ (None Seen); Hyaline Casts Urine 0-2 /LPF (0-2); RBC Urine 0-2 /HPF (0-2); UACC Culture Trigger YES
[2023-08-07 16:09] VITALS: BP 128/88; PULSE 86; RESP 16; TEMP 36.7; O2SAT 100
== END 2023-08-07 16:10 | disposition home or self-care (01) ==
PROVIDERS: Registered Nurse Emergency; Emergency Provider Student in an Organized Health Care Education/Training Program
DX: K29.70 Gastritis, unspecified, without bleeding (principal); R10.12 Left upper quadrant pain; D64.9 Anemia, unspecified; M54.50 Low back pain, unspecified; M79.672 Pain in left foot; M79.671 Pain in right foot; Z79.899 Other long term (current) drug therapy
CPT/HCPCS: 36415; 74177; 80053; 81001; 82150; 83690; 84702; 85025; 85610; 87086; 87147; 96374; 96375; 99284; 99285; J2405; Q9967

== ENCOUNTER 2023-10-20 13:32 | Emergency (ER) | payer MEDICAID, SELFPAY ==
--- NOTE | ~2023-10-20 | CT_ITS ---
EXAMINATION: CT FACIAL BONES WITH CONTRAST CLINICAL INFORMATION: Left cheek swelling COMPARISON: None available. TECHNIQUE: 3 minutes thin axial and reformatted 1.5 minutes thin sagittal and coronal images of facial bones were obtained This CT examination was performed using dose optimization techniques as appropriate, variously including the following: *Automated exposure control *Adjustment of mA and/or kV according to patient size (this includes techniques or standardized protocols for targeted exams where dose is matched to indication/reason for exam; i.e. extremities or head) *Use of iterative reconstruction technique DLP: 336 mGy-cm FINDINGS: Generalized intracranial brain parenchyma is normal. There is mild mucoperiosteal thickening left maxillary sinus. Rest the paranasal sinuses are well-expanded and clear. Bilateral parotid, submandibular glands are symmetrical and normal. There are reactionary prominent bilateral submandibular and carotid/jugular space lymph nodes greater on the left. The largest left carotid/jugular space lymph node measures 1.8 x 0.8 cm. There is mild left maxillary facial soft tissue swelling but no evidence of abscess. There are several periapical cysts along bilateral lower bilateral second bicuspid tooth. There is minimal gas visualized within the left and central alveolar space suggestive of infection. No periosteal thickening. No gross bony abnormality involving the upper cervical spine. The prevertebral soft tissues are normal. CT/CT facial bones w IV con IMPRESSION: Bilateral periapical cyst/inflammatory changes involving lower bilateral second bicuspids. There is minimal gas in the central and left lower alveolar space but no collection seen to suspect any abscess. There is reactionary edema in the left maxillary soft tissues. Diffuse mucoperiosteal thickening left maxillary sinus. Reactionary lymph nodes in the neck especially greater on the left side as described above.
[2023-10-20 13:33] VITALS: BP 121/86; PULSE 121; RESP 18; TEMP 36.6; O2SAT 97; BMI 23.2
--- NOTE | 2023-10-20 15:50 | ED.GENADULT ---
HPI - General Adult General Chief complaint: General Medical Stated complaint: Swelling/pain L side of face Time Seen by Provider: 10/20/23 15:50 Source: patient Mode of arrival: ambulatory Limitations: no limitations History of Present Illness ED Provider: DULCE TIDWELL PA-C HPI narrative: 43 year old female with pmhx significant for T2DM (on Metformin 1000mg BID), diabetic neuropathy, RA, migraines, and anemia presents to the ED today for evaluation of left sided facial pain/ swelling x2 days. Pain/ swelling extends from right cheek to jaw line. Reports waking up with worsening swelling this morning. She reports concern that this may be originating in her teeth. Reports multiple broken teeth to upper right side. Has not followed with dentist in years. She reports taking Motrin 800 mg around 11:30am today. Denies fever/chills, N/V, odynophagia, dysphagia. Related Data Home Medications ?Medication ?Instructions ?Recorded ?Confirmed metformin 1,000 mg tablet 1,000 mg PO BID 01/07/20 01/07/20 Previous Rx's ?Medication ?Instructions ?Recorded cephalexin 500 mg capsule (Keflex) 500 mg PO Q6H 10 days #40 caps 01/07/20 oxycodone-acetaminophen 5 mg-325 1 tab PO Q6H PRN pain #10 tabs 01/07/20 mg tablet (Percocet) phenazopyridine 100 mg tablet 100 mg PO TID PRN pain 6 doses #10 01/07/20 (Pyridium) tabs doxycycline hyclate 100 mg capsule 100 mg PO BID #14 caps 05/31/20 ibuprofen 600 mg tablet 600 mg PO Q6-8H PRN pain #30 tabs 05/31/20 metronidazole 500 mg tablet 500 mg PO BID #7 tabs 05/31/20 (Flagyl) gabapentin 400 mg capsule 400 mg PO BID #60 caps 06/21/23 metformin 1,000 mg tablet 1,000 mg PO BID #60 tabs 06/21/23 nitrofurantoin 100 mg PO Q12H 3 days #6 caps 06/21/23 monohydrate/macrocrystals 100 mg capsule (Macrobid) metformin 1,000 mg tablet 1,000 mg PO BID 90 days #180 tabs 06/23/23 calcium carbonate (Tums) 200 mg PO TID #60 tabs 08/07/23 gabapentin 400 mg capsule 400 mg PO BID #30 caps 08/07/23 pantoprazole 40 mg tablet,delayed 40 mg PO DAILY #60 tabs 08/07/23 release nitrofurantoin 100 mg PO BID 7 days #14 caps 08/11/23 monohydrate/macrocrystals 100 mg capsule amoxicillin 875 mg-potassium 1 tab PO BID 10 days #20 tabs 10/20/23 clavulanate 125 mg tablet tramadol 50 mg tablet 50 mg PO TID PRN pain (scale score 10/20/23 7-10) #7 tabs Allergies Allergy/AdvReac Type Severity Reaction Status Date / Time iron dextran complex AdvReac Intermediate SOB, Verified 10/20/23 13:37 [IRON DEXTRAN COMPLEX] COUGHING, FLUSHING, Review of Systems Review of Systems: Constitutional: No fever, chills, fatigue, night sweats, weight changes ENT/Mouth: No ear pain, hearing loss, nasal congestion, sinus pain, rhinorrhea, sore throat, +left facial pain/ swelling Eyes: No eye pain, swelling, redness, vision changes, discharge Cardio: No chest pain, palpitations, NAVARRO, orthopnea, peripheral edema Pulm: No SOB, cough, sputum, wheezing, dyspnea, hemoptysis GI: No nausea, vomiting, hematemesis, abdominal pain, diarrhea, constipation, hematochezia, melena : No irregular bleeding, dysuria, frequency, urgency, hesitancy, hematuria, flank pain, urinary flow changes, urinary incontinence or retention MSK: No back pain, neck pain, joint pain, myalgias Skin: No lesions, rashes Neuro: No weakness, numbness, paresthesias, LOC, dizziness, headache Psych: No anxiety/panic, depression, SI/HI, AH/VH All other systems reviewed and are negative. [facility] Past Medical History Attestation statement: The following information was validated with the patient. Source: old records reviewed and nursing notes reviewed Medical History Neuropathy Migraine Anemia Rheumatoid arthritis Diabetes Surgical History Hx of cholecystectomy H/O tubal ligation Social History Social History Alcohol intake: current Alcohol intake frequency: a few times a month Advance Directives: No Advance Directives Information Provided: Yes Do you have a plan to hurt others: No Plan Physical Exam ED Vital Signs: Vital Signs - 24 hr 10/20/23 13:33 10/20/23 17:18 10/20/23 19:58 Temperature 97.9 F 98.4 F 98.2 F Pulse Rate 121 H 106 H 108 H Respiratory Rate 18 20 20 Blood Pressure 121/86 139/94 H 157/103 H Pulse Oximetry 97 98 98 Oxygen Delivery Method Room Air Room Air Room Air 10/20/23 20:27 Temperature 98.2 F Pulse Rate 108 H Respiratory Rate 20 Blood Pressure 157/103 H Pulse Oximetry 98 Oxygen Delivery Method Room Air BMI result Body Mass Index 23.2 Patient tachycardic, vitals otherwise WNL Const General: cooperative, healthy appearing, comfortable and no acute distress Orientation/consciousness: patient oriented x3 Limitations: no limitations HENMT Other: + noted swelling over left cheek. Left maxillary sinus tender to palpation. Tongue and lips wnl + multiple dental caries, poor dentition and missing teeth. right upper molars without localized periapical swelling to thel ginginva. No pointing. No active bleeding/ discharge. TTP. No palpable fluctuance. + No edema to buccal mucosa + Posterior oropharynx without erythema/edema. Uvula midline. Controlling secretions and speaking in complete sentences + No submandublar or submental LAD + No cervical LAD Head: Yes normal to inspection, Yes No palpable skull fracture present, Yes normocephalic and Yes atraumatic Ears: hearing grossly normal bilaterally, external ears normal, TM's normal bilaterally, EAC's normal, mastoids normal and no periauricular adenopathy Eyes General: appearance normal, both eyes and all related structures Conjunctivae: conjunctivae normal Sclerae: sclerae normal Pupils: Equal, round and reactive pupils present EOM: EOMs intact bilaterally (Without pain) Neck Other: No anterior neck swelling Neck: Yes normal visual inspection, Yes full ROM and Yes no lymphadenopathy Resp Effort & Inspection: normal respiratory effort and able to speak in complete sentences Auscultation: clear to auscultation bilaterally Cardio Rate: regular rate Rhythm: regular rhythm Skin General skin exam: no rashes or lesions noted Neuro General: patient oriented x3 Cranial nerves: Yes Equal, round and reactive pupils present Course Course Course Narrative: 1831-- CBC with leukocytosis to 12.1. No left shift. Microcytic anemia, stable when compared to priors. Chemistry without acute electrolyte abnormality requiring intervention. Normal renal function. Random glucose 279. Normal liver function. Beta HCG negative. > facial CT pending. > patient given one dose of abx in ED. no concern for sepsis at this time. will continue to monitor. 1905-- patient stable at the end of my shift. Sign-out given to Harmony SANTILLAN pending CT facial bones and disposition. 1934--CT facial bones w IV con IMPRESSION: Bilateral periapical cyst/inflammatory changes involving lower bilateral second bicuspids. There is minimal gas in the central and left lower alveolar space but no collection seen to suspect any abscess. There is reactionary edema in the left maxillary soft tissues. Diffuse mucoperiosteal thickening left maxillary sinus. Reactionary lymph nodes in the neck especially greater on the left side as described above. > Results discussed with patient recommended follow-up with ENT/dentistry including worrisome signs and symptoms and strict return precautions, and when to return to the emergency department. They verbalized understanding and feel safe for discharge at this time. Medications Administered Discontinued Medications Generic Name Dose Route Start Last Admin Trade Name Freq PRN Reason Stop Dose Admin Sodium Chloride 1,000 mls @ 999 mls/hr 10/20/23 18:30 10/20/23 20:26 Ns IV 10/20/23 19:30 Infused .Q1H1M [place] Infusion Ampicillin Sodium/Sulbactam 100 mls @ 200 mls/hr 10/20/23 18:30 10/20/23 20:02 Sodium 3 gm/ Sodium Chloride IV 10/20/23 18:59 Infused ONCE ONE Infusion Iohexol 85 ml 10/20/23 17:43 10/20/23 17:44 Iohexol 350 Mg/Ml 100 Ml Infus..Btl IV 10/20/23 17:44 85 ml ONCE ONE Administration Ketorolac Tromethamine 15 mg 10/20/23 16:23 10/20/23 17:20 Ketorolac Tromethamine 15 Mg/Ml Vial IVPUSH 10/20/23 16:24 15 mg ONCE ONE Administration Morphine Sulfate 4 mg 10/20/23 18:43 07/23/24 18:57 Morphine Sulfate 4 Mg/Ml Cartridge IVPUSH 10/20/23 18:44 4 mg ONCE ONE Administration Protocol Ondansetron HCl 4 mg 10/20/23 18:44 10/20/23 18:57 Ondansetron Hcl 4 Mg/2 Ml Vial IVPUSH 10/20/23 18:45 4 mg ONCE ONE Administration Medical Decision Making Medical Decision Making [facility] Narrative: 43 year old female with pmhx significant for T2DM (on Metformin 1000mg BID), diabetic neuropathy, RA, migraines, and anemia presents to the ED today for evaluation of left sided facial pain/ swelling x2 days. Patient hypertensive and tachycardic which appears to be around her baseline when compared to priors. etoms intact w/o pain. on exam, noted swelling over left cheek. Left maxillary sinus tender to palpation. Tongue and lips wnl. multiple dental caries, poor dentition and missing teeth. right upper molars without localized periapical swelling to thel ginginva. No pointing. No active bleeding/ discharge. TTP. No palpable fluctuance. No edema to buccal mucosa. Posterior oropharynx without erythema/edema. Uvula midline. Controlling secretions and speaking in complete sentences. No submandublar or submental LAD. No cervical LAD Differential diagnosis includes dental caries, dental infection, osteomyelitis, facial cellulitis/ abscess. Unlikely sialadenitis, sialolithiasis, [employer], retropharyngeal abscess, deep neck infection, lymphoma, ludwigs angina. Plan for basic labs, CT, pain control, re-evaluation. Differential Diagnosis Differential Diagnoses: The differential diagnosis associated with the presentation includes as above Admission/Observation Consideration of admission/observation: Escalation of care including admission/observation considered Admission considered on presentation Lab Data [facility] Lab Attestation statement: I reviewed the patient's lab results. as above 10/20/23 17:03 10/20/23 17:03 Labs: Lab Results 10/20/23 Range/Units 17:03 WBC 12.1 H (4.8-10.8) X10*3/uL RBC 4.45 (4.20-5.50) X10*6/uL Hgb 8.8 L (12.0-16.0) g/dl Hct 29.7 L (37.0-47.0) % MCV 66.7 L (80.0-98.0) fL MCH 19.8 L (27.0-33.0) pg MCHC 29.6 L (31.0-35.0) g/dl RDW 18.6 H (11.0-16.0) % Plt Count 359 (160-400) X10*3/uL MPV 9.6 (9.4-12.3) fL Immature Gran % (Auto) 0.2 (0.0-0.4) % Neut % (Auto) 61.8 (45-73) % Lymph % (Auto) 28.3 (20-40) % [place] % (Auto) 8.0 (2-11) % Eos % (Auto) 1.3 (0-4) % Baso % (Auto) 0.4 (0-2) % Lymph # (Auto) 3.4 (1.2-4.9) X10*3/uL [place] # (Auto) 1.0 (0.1-1.2) X10*3/uL Eos # (Auto) 0.2 (0.0-0.4) X10*3/uL Baso # (Auto) 0.1 (0.0-0.2) X10*3/uL Abs Immat Gran (auto) 0.03 (0.00-0.03) X10*3/uL Absolute Neuts (auto) 7.4 (2.0-8.3) x10*3/uL Absolute Nucleated RBC 0.000 (0.0-0.012) X10*3/uL Nucleated RBC % (auto) 0.0 (0.0-0.2) /100WBC Sodium 135 (135-145) mmol/L Potassium 4.1 (3.3-5.1) mmol/L Chloride 103 (96-108) mmol/L Carbon Dioxide 18 L (22-29) mmol/L Anion Gap 18 (12-20) BUN 6 L (9-16) mg/dL Creatinine 0.63 (0.5-1.4) mg/dL Estim Creat Clear Calc 113.1 Estimated GFR > 60 Random Glucose 279 H (60-115) mg/dL Calcium 10.0 D (8.4-10.2) mg/dL Magnesium 2.0 (1.6-2.6) mg/dL Total Bilirubin 0.3 (0.0-1.0) mg/dL AST 25 (5-31) U/L ALT 9 (0-31) U/L Alkaline Phosphatase 70 (39-117) U/L Total Protein 8.6 H (6.5-8.0) g/dL Albumin 4.1 (3.5-5.0) g/dL Beta HCG, Quant < 2 mIU/mL Independent Interpretation I performed an independent interpretation of an: CT Scan Interpretation: CT facial bones with air-fluid level noted to left maxillary sinus, agree with radiologist's interpretation. Radiology Impression Discussion of test interpretation with radiology: I have reviewed the radiologist's reading. Radiologist Impression: EXAMINATION: CT FACIAL BONES WITH CONTRAST CLINICAL INFORMATION: Left cheek swelling COMPARISON: None available. TECHNIQUE: 3 minutes thin axial and reformatted 1.5 minutes thin sagittal and coronal images of facial bones were obtained This CT examination was performed using dose optimization techniques as appropriate, variously including the following: *Automated exposure control *Adjustment of mA and/or kV according to patient size (this includes techniques or standardized protocols for targeted exams where dose is matched to indication/reason for exam; i.e. extremities or head) *Use of iterative reconstruction technique DLP: 336 mGy-cm FINDINGS: Generalized intracranial brain parenchyma is normal. There is mild mucoperiosteal thickening left maxillary sinus. Rest the paranasal sinuses are well-expanded and clear. Bilateral parotid, submandibular glands are symmetrical and normal. There are reactionary prominent bilateral submandibular and carotid/jugular space lymph nodes greater on the left. The largest left carotid/jugular space lymph node measures 1.8 x 0.8 cm. There is mild left maxillary facial soft tissue swelling but no evidence of abscess. There are several periapical cysts along bilateral lower bilateral second bicuspid tooth. There is minimal gas visualized within the left and central alveolar space suggestive of infection. No periosteal thickening. No gross bony abnormality involving the upper cervical spine. The prevertebral soft tissues are normal. CT/CT facial bones w IV con IMPRESSION: Bilateral periapical cyst/inflammatory changes involving lower bilateral second bicuspids. There is minimal gas in the central and left lower alveolar space but no collection seen to suspect any abscess. There is reactionary edema in the left maxillary soft tissues. Diffuse mucoperiosteal thickening left maxillary sinus. Reactionary lymph nodes in the neck especially greater on the left side as described above. External Record Review External record reviewed: Inpatient record, Office record, Outpatient record, Prior outpatient labs, Prior outpatient radiology, Primary care record and Outside ED record Prescription Management I considered prescription management with: Pain Medication (tramadol) and Antibiotic (augmentin) Chronic Conditions Patient?s care impacted by: Diabetes Social Determinants Patient?s care significantly limited by Social Determinants of Health including: Other Social Determinant of Health Critical Care Time Critical Care Time Critical Care Time: Yes Total Critical Care Time: 31 Attestation: Critical care time in the amount of 31 minutes has been provided to the patient in terms of direct patient care, frequent reevaluation on IV morphine, review and interpretation of medical data and results, and management of potentially life-threatening conditions. This is all outside of any medical procedures. Discharge Plan Discharge Clinical Impression: Left maxillary sinusitis Patient Disposition: Home, Self-Care Instructions: Sinusitis (ED) Additional Instructions: The CT of your facial bones shows inflammatory changes of your lower teeth suggestive of infection as well as sinusitis. There is no drainable abscess Augmentin is an antibiotic that has been sent to your pharmacy. Take this to completion and do not skip any doses. On Augmentin, softer bowel movements are to be expected. Call your provider if you move your bowels more than 4 times a day, your bowel movements are almost all liquid, or you get a rash.? You may take Tylenol and ibuprofen as needed for pain/discomfort. Tramadol has been sent to your pharmacy for you to take for breakthrough pain. Please follow-up with dentist. [facility] is currently taking new patients. Call them to make an appointment. They will not call you. [facility] dental: [phone] [facility] Return with new or worsening symptoms. In the case of an emergency call 911. Prescriptions: New amoxicillin-pot clavulanate 875-125 mg tablet 1 tab PO BID 10 Days Qty: 20 0RF tramadol 50 mg tablet 50 mg PO TID PRN (Reason: pain (scale score 7-10)) Qty: 7 0RF No Action metronidazole [Flagyl] 500 mg tablet 500 mg PO BID Qty: 7 0RF doxycycline hyclate 100 mg capsule 100 mg PO BID Qty: 14 0RF ibuprofen 600 mg tablet 600 mg PO Q6-8H PRN (Reason: pain) Qty: 30 0RF metformin 1,000 mg Tablet 1,000 mg PO BID cephalexin [Keflex] 500 mg capsule 500 mg PO Q6H 10 Days Qty: 40 0RF phenazopyridine [Pyridium] 100 mg tablet 100 mg PO TID PRN (Reason: pain) Qty: 10 0RF oxycodone-acetaminophen [Percocet] 5-325 mg tablet 1 tab PO Q6H PRN (Reason: pain) Qty: 10 0RF pantoprazole 40 mg tablet,delayed release (DR/EC) 40 mg PO DAILY Qty: 60 0RF gabapentin 400 mg capsule 400 mg PO BID Qty: 30 0RF calcium carbonate [Tums] 200 mg calcium (500 mg) tablet,chewable 200 mg PO TID Qty: 60 0RF nitrofurantoin monohyd/m-cryst 100 mg capsule 100 mg PO BID 7 Days Qty: 14 0RF Rx Instructions: must administer with a meal/food metformin 1,000 mg tablet 1,000 mg PO BID Qty: 60 0RF gabapentin 400 mg capsule 400 mg PO BID Qty: 60 0RF nitrofurantoin monohyd/m-cryst [Macrobid] 100 mg capsule 100 mg PO Q12H 3 Days Qty: 6 0RF Rx Instructions: must administer with a meal/food metformin 1,000 mg tablet 1,000 mg PO BID 90 Days Qty: 180 0RF Referrals: [facility] [Outside] [facility] [Outside] Interventions: ED Discharge Assessment Last Done: 10/20/23 20:27 Discharge Date/Time: 10/20/23 20:27 Print Language: Serbian
[2023-10-20 17:07] LABS: MANUAL DIFF FLAG NO
[2023-10-20 17:08] LABS: Basophils Absolute Auto 0.1 X10*3/uL (0.0-0.2); Basophils Percent Auto 0.4 % (0-2); Eosinophils Absolute Auto 0.2 X10*3/uL (0.0-0.4); Eosinophils Percent Auto 1.3 % (0-4); Hematocrit 29.7 % (37.0-47.0); Hemoglobin 8.8 g/dl (12.0-16.0); Imm Gran Abs Auto 0.03 X10*3/uL (0.00-0.03); Imm Gran Pct Auto 0.2 % (0.0-0.4); Lymphocytes Absolute Auto 3.4 X10*3/uL (1.2-4.9); Lymphocytes Percent Auto 28.3 % (20-40); Mean Corpuscular HGB Conc 29.6 g/dl (31.0-35.0); Mean Corpuscular Hemoglobin 19.8 pg (27.0-33.0); Mean Corpuscular Volume 66.7 fL (80.0-98.0); Mean Platelet Volume 9.6 fL (9.4-12.3); Neutrophils Absolute Auto 7.4 x10*3/uL (2.0-8.3); Neutrophils Percent Auto 61.8 % (45-73); Platelet Count 359 X10*3/uL (160-400); Red Blood Count 4.45 X10*6/uL (4.20-5.50); Red Cell Distribution Width 18.6 % (11.0-16.0); White Blood Count 12.1 X10*3/uL (4.8-10.8)
[2023-10-20 17:18] VITALS: BP 139/94; PULSE 106; RESP 20; TEMP 36.9; O2SAT 98
[2023-10-20] MEDS: Ketorolac Tromethamine 15 MG/ML VIAL IVPUSH (17:20)
[2023-10-20 17:34] LABS: Alanine Aminotransferase 9 U/L (0-31); Albumin Level 4.1 g/dL (3.5-5.0); Alkaline Phosphatase 70 U/L (39-117); Anion Gap 18 (12-20); Aspartate Amino Transferase 25 U/L (5-31); Bilirubin Total 0.3 mg/dL (0.0-1.0); Blood Urea Nitrogen 6 mg/dL (9-16); Carbon Dioxide 18 mmol/L (22-29); Chloride 103 mmol/L (96-108); Creatinine Clr Calc Pharmacy 113.1; Estimated Glomerular Filt Rate > 60; Glucose Random 279 mg/dL (60-115); HCG Quantitative < 2 mIU/mL; Potassium 4.1 mmol/L (3.3-5.1); Sodium 135 mmol/L (135-145); Total Protein 8.6 g/dL (6.5-8.0)
[2023-10-20] MEDS: iohexoL 350 MG/ML 100 ML INFUS..BTL 85 ML IV (17:44)
[2023-10-20] MEDS: ondansetron HCL 4 MG/2 ML VIAL IVPUSH (18:57)
[2023-10-20] MEDS: Morphine Sulfate 4 MG/ML CARTRIDGE IVPUSH (18:57)
[2023-10-20] MEDS: 0.9 % Sodium Chloride 1,000 ML 999 ML IV (19:11)
[2023-10-20] MEDS: Ampicillin Sodium/Sulbactam Na 3 GM in 0.9 % Sodium Chloride 100 ML IV (19:13)
[2023-10-20 19:58] VITALS: BP 157/103; PULSE 108; RESP 20; TEMP 36.8; O2SAT 98
[2023-10-20 20:27] VITALS: BP 157/103; PULSE 108; RESP 20; TEMP 36.8; O2SAT 98
== END 2023-10-20 20:27 | disposition home or self-care (01) ==
PROVIDERS: Physician Assistant Medical; Emergency Provider Emergency Medicine
DX: J32.0 Chronic maxillary sinusitis (principal); K04.7 Periapical abscess without sinus; E11.9 Type 2 diabetes mellitus without complications; D64.9 Anemia, unspecified
CPT/HCPCS: 36415; 70487; 80053; 83735; 84702; 85025; 87040; 96361; 96374; 96375; 99284; J0295; J1885; J2270; J2405; Q9967

== ENCOUNTER 2023-12-26 14:48 | Emergency (ER) | payer MEDICAID, SELFPAY ==
[2023-12-26 14:59] VITALS: BP 116/82; PULSE 106; RESP 16; TEMP 36.9; O2SAT 98; BMI 21.1
[2023-12-26 15:28] LABS: MANUAL DIFF FLAG NO
[2023-12-26 15:30] LABS: Basophils Percent Auto 0.5 % (0-2); Eosinophils Absolute Auto 0.1 X10*3/uL (0.0-0.4); Eosinophils Percent Auto 1.6 % (0-4); Imm Gran Abs Auto 0.04 X10*3/uL (0.00-0.03); Imm Gran Pct Auto 0.5 % (0.0-0.4); Lymphocytes Percent Auto 35.2 % (20-40); Mean Corpuscular HGB Conc 29.6 g/dl (31.0-35.0); Mean Corpuscular Hemoglobin 19.4 pg (27.0-33.0); Mean Corpuscular Volume 65.5 fL (80.0-98.0); Mean Platelet Volume 9.3 fL (9.4-12.3); Monocytes Absolute Auto 0.7 X10*3/uL (0.1-1.2); Monocytes Percent Auto 8.1 % (2-11); Neutrophils Absolute Auto 4.6 x10*3/uL (2.0-8.3); Neutrophils Percent Auto 54.1 % (45-73); Platelet Count 333 X10*3/uL (160-400); Red Blood Count 4.12 X10*6/uL (4.20-5.50); White Blood Count 8.5 X10*3/uL (4.8-10.8)
[2023-12-26 15:52] LABS: Anion Gap 13 (12-20); Blood Urea Nitrogen 11 mg/dL (9-16); Calcium 9.7 mg/dL (8.4-10.2); Carbon Dioxide 24 mmol/L (22-29); Chloride 102 mmol/L (96-108); Creatinine Clr Calc Pharmacy 99.7; Estimated Glomerular Filt Rate > 60; Glucose Random 285 mg/dL (60-115); Potassium 3.8 mmol/L (3.3-5.1); Sodium 135 mmol/L (135-145)
[2023-12-26 15:53] LABS: Alanine Aminotransferase 11 U/L (0-31); Albumin Level 4.1 g/dL (3.5-5.0); Alkaline Phosphatase 118 U/L (39-117); Aspartate Amino Transferase 9 U/L (5-31); Bilirubin Direct 0.1 mg/dL (0.0-0.5); Bilirubin Total 0.3 mg/dL (0.0-1.0); Lipase 30 U/L (8-78); Total Protein 8.2 g/dL (6.5-8.0)
[2023-12-26 19:12] LABS: HCG Quantitative < 2 mIU/mL
[2023-12-26 19:25] LABS: Appearance Urine Cloudy; Glucose Urine UA >=1000 mg/dL (Negative); Leukocyte Esterase Urine Trace (Negative); Nitrite Urine Negative (Negative); PH 5.5 (5.0-9.0); Specific Gravity - Urine >= 1.030 (1.005-1.025); UMIC TRIGGER UACC YES; Urine Blood Large (3+) (Negative); Urine Ketones Negative (Negative); Urine Protein 30 (1+) mg/dL (Neg-Trace)
[2023-12-26 19:26] LABS: Color Urine PINK
[2023-12-26 19:27] LABS: Bacteria Urine None Seen (None Seen); Hyaline Casts Urine 0-2 /LPF (0-2); RBC Urine >20 /HPF (0-2); UACC Culture Trigger YES
[2023-12-26 19:46] VITALS: BP 128/65; PULSE 103; RESP 20; TEMP 36.6; O2SAT 100
--- NOTE | 2023-12-26 21:08 | ED_ITS ---
HPI - Female Genitourinary General Chief complaint: Urogenital-Female Stated complaint: abd pain Time Seen by Provider: 12/26/23 20:48 Source: patient Mode of arrival: ambulatory Limitations: no limitations History of Present Illness ED Provider: williams GUERRA Narrative: Patient history of chronic iron deficiency anemia been having menstruation for last 2 weeks changing 7-10 pads a day complaining of diffuse abdominal cramps patient is status post tubal ligation also noticed slight swelling of the lower extremity no urinary complaints no history of kidney stone prior CT scan and ultrasound negative for fibroids Related Data Home Medications ?Medication ?Instructions ?Recorded ?Confirmed metformin 1,000 mg tablet 1,000 mg PO BID 01/07/20 01/07/20 Previous Rx's ?Medication ?Instructions ?Recorded cephalexin 500 mg capsule (Keflex) 500 mg PO Q6H 10 days #40 caps 01/07/20 oxycodone-acetaminophen 5 mg-325 1 tab PO Q6H PRN pain #10 tabs 01/07/20 mg tablet (Percocet) phenazopyridine 100 mg tablet 100 mg PO TID PRN pain 6 doses #10 01/07/20 (Pyridium) tabs doxycycline hyclate 100 mg capsule 100 mg PO BID #14 caps 05/31/20 ibuprofen 600 mg tablet 600 mg PO Q6-8H PRN pain #30 tabs 05/31/20 metronidazole 500 mg tablet 500 mg PO BID #7 tabs 05/31/20 (Flagyl) gabapentin 400 mg capsule 400 mg PO BID #60 caps 06/21/23 metformin 1,000 mg tablet 1,000 mg PO BID #60 tabs 06/21/23 nitrofurantoin 100 mg PO Q12H 3 days #6 caps 06/21/23 monohydrate/macrocrystals 100 mg capsule (Macrobid) metformin 1,000 mg tablet 1,000 mg PO BID 90 days #180 tabs 06/23/23 calcium carbonate (Tums) 200 mg PO TID #60 tabs 08/07/23 gabapentin 400 mg capsule 400 mg PO BID #30 caps 08/07/23 pantoprazole 40 mg tablet,delayed 40 mg PO DAILY #60 tabs 08/07/23 release nitrofurantoin 100 mg PO BID 7 days #14 caps 08/11/23 monohydrate/macrocrystals 100 mg capsule amoxicillin 875 mg-potassium 1 tab PO BID 10 days #20 tabs 10/20/23 clavulanate 125 mg tablet tramadol 50 mg tablet 50 mg PO TID PRN pain (scale score 10/20/23 7-10) #7 tabs Allergies Allergy/AdvReac Type Severity Reaction Status Date / Time iron dextran complex AdvReac Intermediate SOB, Verified 12/26/23 15:02 [IRON DEXTRAN COMPLEX] COUGHING, FLUSHING, Review of Systems 2 Review of Systems: Yes all other systems are reviewed and are negative PMFSH Past Medical History Medical History Neuropathy Migraine Anemia Rheumatoid arthritis Diabetes Surgical History Hx of cholecystectomy H/O tubal ligation Social History Social History Alcohol intake: current Alcohol intake frequency: a few times a month Advance Directives: No Advance Directives Information Provided: No Physical Exam 2 Vital Signs: Vital Signs: Last Vital Signs Temp 97.9 F 12/26/23 19:46 Pulse 103 H 12/26/23 19:46 Resp 20 12/26/23 19:46 BP 128/65 12/26/23 19:46 Pulse Ox 100 12/26/23 19:46 O2 Del Method Room Air 12/26/23 19:46 BMI result Body Mass Index 21.1 Appearance: Alert. Oriented X3. No acute distress. Eyes: No pallor ENT: Pharynx normal. Oral Mucosa moist Neck: Normal inspection. Neck supple. CVS: Normal heart rate and rhythm. Pulses normal. Respiratory: No respiratory distress. Equal air entry bilateral, no wheezing/rales/rhonchi Abdomen: Soft and diffuse suprapubic tenderness Bowel sounds are present, no mass palpable, no CVA tenderness Skin: Skin warm and dry. Normal skin color. Normal skin turgor. Extremities: Trace lower extremity edema. No calf tenderness Neuro: Oriented X 3. Medical Decision Making Medical Decision Making [facility] Narrative: Patient's left without ultrasound and further management she aware she is anemia and need iron infusion allergic to iron tablets also she needs to follow with socially responsible investment adviser Lab Data [facility] Lab Attestation statement: I reviewed the patient's lab results. 12/26/23 15:21 12/26/23 15:21 Labs: Lab Results 12/26/23 12/26/23 Range/Units 15:21 19:08 WBC 8.5 (4.8-10.8) X10*3/uL RBC 4.12 L (4.20-5.50) X10*6/uL Hgb 8.0 L (12.0-16.0) g/dl Hct 27.0 L (37.0-47.0) % MCV 65.5 L (80.0-98.0) fL MCH 19.4 L (27.0-33.0) pg MCHC 29.6 L (31.0-35.0) g/dl RDW 17.0 H (11.0-16.0) % Plt Count 333 (160-400) X10*3/uL MPV 9.3 L (9.4-12.3) fL Immature Gran % (Auto) 0.5 H (0.0-0.4) % Neut % (Auto) 54.1 (45-73) % Lymph % (Auto) 35.2 (20-40) % [place] % (Auto) 8.1 (2-11) % Eos % (Auto) 1.6 (0-4) % Baso % (Auto) 0.5 (0-2) % Lymph # (Auto) 3.0 (1.2-4.9) X10*3/uL [place] # (Auto) 0.7 (0.1-1.2) X10*3/uL Eos # (Auto) 0.1 (0.0-0.4) X10*3/uL Baso # (Auto) 0.0 (0.0-0.2) X10*3/uL Abs Immat Gran (auto) 0.04 H (0.00-0.03) X10*3/uL Absolute Neuts (auto) 4.6 (2.0-8.3) x10*3/uL Absolute Nucleated RBC 0.000 (0.0-0.012) X10*3/uL Nucleated RBC % (auto) 0.0 (0.0-0.2) /100WBC Sodium 135 (135-145) mmol/L Potassium 3.8 (3.3-5.1) mmol/L Chloride 102 (96-108) mmol/L Carbon Dioxide 24 (22-29) mmol/L Anion Gap 13 (12-20) BUN 11 (9-16) mg/dL Creatinine 0.71 (0.5-1.4) mg/dL Estim Creat Clear Calc 99.7 Estimated GFR > 60 Random Glucose 285 H (60-115) mg/dL Calcium 9.7 (8.4-10.2) mg/dL Iron 13 L (30-160) mcg/dL TIBC 371 (228-428) mcg/dL % Saturation 4 L (15-50) % Unsat Iron Binding 358 ug/dL Total Bilirubin 0.3 (0.0-1.0) mg/dL Direct Bilirubin 0.1 (0.0-0.5) mg/dL AST 9 (5-31) U/L ALT 11 (0-31) U/L Alkaline Phosphatase 118 H (39-117) U/L Total Protein 8.2 H (6.5-8.0) g/dL Albumin 4.1 (3.5-5.0) g/dL Lipase 30 (8-78) U/L Beta HCG, Quant < 2 mIU/mL Urine Color PINK Urine Appearance Cloudy Urine pH 5.5 (5.0-9.0) Ur Specific [place] >= 1.030 H (1.005-1.025) Urine Protein 30 (1+) H (Neg-Trace) mg/dL Urine Glucose (UA) >=1000 H (Negative) mg/dL Urine Ketones Negative (Negative) mg/dL Urine Blood Large (3+) H (Negative) Urine Nitrite Negative (Negative) Ur Leukocyte Esterase Trace H (Negative) Urine RBC >20 H (0-2) /HPF Urine WBC 11-20 H (0-5) /HPF Ur Squamous Epith Cells 3-5 (0-2) /HPF Urine Bacteria None Seen (None Seen) Hyaline Casts 0-2 (0-2) /LPF Discharge Plan Discharge Clinical Impression: Menorrhagia, Iron deficiency anemia Patient Disposition: Left W/O Completing Treatment Prescriptions: No Action metronidazole [Flagyl] 500 mg tablet 500 mg PO BID Qty: 7 0RF doxycycline hyclate 100 mg capsule 100 mg PO BID Qty: 14 0RF ibuprofen 600 mg tablet 600 mg PO Q6-8H PRN (Reason: pain) Qty: 30 0RF metformin 1,000 mg Tablet 1,000 mg PO BID cephalexin [Keflex] 500 mg capsule 500 mg PO Q6H 10 Days Qty: 40 0RF phenazopyridine [Pyridium] 100 mg tablet 100 mg PO TID PRN (Reason: pain) Qty: 10 0RF oxycodone-acetaminophen [Percocet] 5-325 mg tablet 1 tab PO Q6H PRN (Reason: pain) Qty: 10 0RF pantoprazole 40 mg tablet,delayed release (DR/EC) 40 mg PO DAILY Qty: 60 0RF gabapentin 400 mg capsule 400 mg PO BID Qty: 30 0RF calcium carbonate [Tums] 200 mg calcium (500 mg) tablet,chewable 200 mg PO TID Qty: 60 0RF nitrofurantoin monohyd/m-cryst 100 mg capsule 100 mg PO BID 7 Days Qty: 14 0RF Rx Instructions: must administer with a meal/food amoxicillin-pot clavulanate 875-125 mg tablet 1 tab PO BID 10 Days Qty: 20 0RF tramadol 50 mg tablet 50 mg PO TID PRN (Reason: pain (scale score 7-10)) Qty: 7 0RF metformin 1,000 mg tablet 1,000 mg PO BID Qty: 60 0RF gabapentin 400 mg capsule 400 mg PO BID Qty: 60 0RF nitrofurantoin monohyd/m-cryst [Macrobid] 100 mg capsule 100 mg PO Q12H 3 Days Qty: 6 0RF Rx Instructions: must administer with a meal/food metformin 1,000 mg tablet 1,000 mg PO BID 90 Days Qty: 180 0RF Discharge Date/Time: 12/26/23 22:04
[2023-12-26 21:50] LABS: Iron 13 mcg/dL (30-160); Percent Iron Saturation 4 % (15-50); Total Iron Binding Capacity 371 mcg/dL (228-428); Unsaturated Iron Binding 358 ug/dL
--- NOTE | 2023-12-26 22:02 | PC.NURSE ---
Addendum entered by Lakeshia Munoz 12/26/23 22:04: pt seen by ED provider w additional lab orders placed. Original Note: pt LWCT d/t cont'd pain with no provider orders. this RN previously offered tylenol but pt declined stating she could have stayed at home at taken tylenol and motrin - was agreeable to a heat pack. pt declined to stay for AMA paperwork.
== END 2023-12-26 22:04 | disposition left against medical advice (07) ==
PROVIDERS: Physician Assistant Medical; Emergency Provider Internal Medicine
DX: N92.0 Excessive and frequent menstruation with regular cycle (principal); R10.9 Unspecified abdominal pain; D50.9 Iron deficiency anemia, unspecified; Z53.29 Procedure and treatment not carried out because of patient's decision for other reasons
CPT/HCPCS: 36415; 80048; 80076; 81001; 83540; 83690; 84702; 85025; 87086; 99282; 99283

== ENCOUNTER 2024-05-20 13:21 | Emergency (ER) | payer SELFPAY ==
--- NOTE | 2024-05-20 13:38 | ED.GENADULT ---
HPI - General Adult General Chief complaint: Dental/Oral Stated complaint: Facial swelling L side Related Data Home Medications ?Medication ?Instructions ?Recorded ?Confirmed metformin 1,000 mg tablet 1,000 mg PO BID 01/07/20 01/07/20 Previous Rx's ?Medication ?Instructions ?Recorded cephalexin 500 mg capsule (Keflex) 500 mg PO Q6H 10 days #40 caps 01/07/20 oxycodone-acetaminophen 5 mg-325 1 tab PO Q6H PRN pain #10 tabs 01/07/20 mg tablet (Percocet) phenazopyridine 100 mg tablet 100 mg PO TID PRN pain 6 doses #10 01/07/20 (Pyridium) tabs doxycycline hyclate 100 mg capsule 100 mg PO BID #14 caps 05/31/20 ibuprofen 600 mg tablet 600 mg PO Q6-8H PRN pain #30 tabs 05/31/20 metronidazole 500 mg tablet 500 mg PO BID #7 tabs 05/31/20 (Flagyl) gabapentin 400 mg capsule 400 mg PO BID #60 caps 06/21/23 metformin 1,000 mg tablet 1,000 mg PO BID #60 tabs 06/21/23 nitrofurantoin 100 mg PO Q12H 3 days #6 caps 06/21/23 monohydrate/macrocrystals 100 mg capsule (Macrobid) metformin 1,000 mg tablet 1,000 mg PO BID 90 days #180 tabs 06/23/23 calcium carbonate (Tums) 200 mg PO TID #60 tabs 08/07/23 gabapentin 400 mg capsule 400 mg PO BID #30 caps 08/07/23 pantoprazole 40 mg tablet,delayed 40 mg PO DAILY #60 tabs 08/07/23 release nitrofurantoin 100 mg PO BID 7 days #14 caps 08/11/23 monohydrate/macrocrystals 100 mg capsule amoxicillin 875 mg-potassium 1 tab PO BID 10 days #20 tabs 10/20/23 clavulanate 125 mg tablet tramadol 50 mg tablet 50 mg PO TID PRN pain (scale score 10/20/23 7-10) #7 tabs Allergies Allergy/AdvReac Type Severity Reaction Status Date / Time iron dextran complex AdvReac Intermediate SOB, Verified 05/20/24 13:41 [IRON DEXTRAN COMPLEX] COUGHING, FLUSHING, PMFSH Past Medical History Medical History Neuropathy Migraine Anemia Rheumatoid arthritis Diabetes Surgical History Hx of cholecystectomy H/O tubal ligation Social History Social History Alcohol intake: current Alcohol intake frequency: a few times a month Advance Directives: No Advance Directives Information Provided: Yes Do you have a plan to hurt others: No Plan Physical Exam ED Vital Signs: BMI result Body Mass Index 25.2 Course Course Course Narrative: This is a rapid medical exam performed by Yesy Gerardo PA-C. Patient is a 43-year-old female who presents with left-sided jaw and ear pain x1 day. Patient states the left side of her jaw was swollen overnight. Denies dental pain, sore throat. We will obtain screening labs. The patient is stable and can return to the waiting room pending her full medical assessment. Medical Decision Making Lab Data 05/20/24 13:53 05/20/24 13:53 Labs: Lab Results 05/20/24 Range/Units 13:53 WBC 7.7 (4.8-10.8) X10*3/uL RBC 4.47 (4.20-5.50) X10*6/uL Hgb 7.5 L (12.0-16.0) g/dl Hct 27.5 L (37.0-47.0) % MCV 61.5 L (80.0-98.0) fL MCH 16.8 L (27.0-33.0) pg MCHC 27.3 L (31.0-35.0) g/dl RDW 18.8 H (11.0-16.0) % Plt Count 373 (160-400) X10*3/uL MPV 10.0 (9.4-12.3) fL Immature Gran % (Auto) 0.3 (0.0-0.4) % Neut % (Auto) 54.8 (45-73) % Lymph % (Auto) 33.7 (20-40) % [place] % (Auto) 8.8 (2-11) % Eos % (Auto) 1.9 (0-4) % Baso % (Auto) 0.5 (0-2) % Lymph # (Auto) 2.6 (1.2-4.9) X10*3/uL [place] # (Auto) 0.7 (0.1-1.2) X10*3/uL Eos # (Auto) 0.2 (0.0-0.4) X10*3/uL Baso # (Auto) 0.0 (0.0-0.2) X10*3/uL Abs Immat Gran (auto) 0.02 (0.00-0.03) X10*3/uL Absolute Neuts (auto) 4.2 (2.0-8.3) x10*3/uL Absolute Nucleated RBC 0.000 (0.0-0.012) X10*3/uL Nucleated RBC % (auto) 0.0 (0.0-0.2) /100WBC Sodium 137 (135-145) mmol/L Potassium 4.0 (3.3-5.1) mmol/L Chloride 103 (96-108) mmol/L Carbon Dioxide 23 (22-29) mmol/L Anion Gap 15 (12-20) BUN 7 L (9-16) mg/dL Creatinine 0.75 (0.5-1.4) mg/dL Estim Creat Clear Calc 91.5 Estimated GFR > 60 Random Glucose 379 H* (60-115) mg/dL Calcium 9.4 (8.4-10.2) mg/dL Magnesium 1.7 (1.6-2.6) mg/dL Beta HCG, Quant < 2 mIU/mL Discharge Plan Discharge Clinical Impression: Facial pain Patient Disposition: Left W/O Completing Treatment Prescriptions: No Action metronidazole [Flagyl] 500 mg tablet 500 mg PO BID Qty: 7 0RF doxycycline hyclate 100 mg capsule 100 mg PO BID Qty: 14 0RF ibuprofen 600 mg tablet 600 mg PO Q6-8H PRN (Reason: pain) Qty: 30 0RF metformin 1,000 mg Tablet 1,000 mg PO BID cephalexin [Keflex] 500 mg capsule 500 mg PO Q6H 10 Days Qty: 40 0RF phenazopyridine [Pyridium] 100 mg tablet 100 mg PO TID PRN (Reason: pain) Qty: 10 0RF oxycodone-acetaminophen [Percocet] 5-325 mg tablet 1 tab PO Q6H PRN (Reason: pain) Qty: 10 0RF pantoprazole 40 mg tablet,delayed release (DR/EC) 40 mg PO DAILY Qty: 60 0RF gabapentin 400 mg capsule 400 mg PO BID Qty: 30 0RF calcium carbonate [Tums] 200 mg calcium (500 mg) tablet,chewable 200 mg PO TID Qty: 60 0RF nitrofurantoin monohyd/m-cryst 100 mg capsule 100 mg PO BID 7 Days Qty: 14 0RF Rx Instructions: must administer with a meal/food amoxicillin-pot clavulanate 875-125 mg tablet 1 tab PO BID 10 Days Qty: 20 0RF tramadol 50 mg tablet 50 mg PO TID PRN (Reason: pain (scale score 7-10)) Qty: 7 0RF metformin 1,000 mg tablet 1,000 mg PO BID Qty: 60 0RF gabapentin 400 mg capsule 400 mg PO BID Qty: 60 0RF nitrofurantoin monohyd/m-cryst [Macrobid] 100 mg capsule 100 mg PO Q12H 3 Days Qty: 6 0RF Rx Instructions: must administer with a meal/food metformin 1,000 mg tablet 1,000 mg PO BID 90 Days Qty: 180 0RF Discharge Date/Time: 05/20/24 20:24
[2024-05-20 13:39] VITALS: BP 156/97; PULSE 105; RESP 18; TEMP 36.7; O2SAT 96; BMI 25.2
[2024-05-20 13:57] LABS: MANUAL DIFF FLAG NO
[2024-05-20 14:04] LABS: Basophils Percent Auto 0.5 % (0-2); Eosinophils Absolute Auto 0.2 X10*3/uL (0.0-0.4); Eosinophils Percent Auto 1.9 % (0-4); Hematocrit 27.5 % (37.0-47.0); Hemoglobin 7.5 g/dl (12.0-16.0); Imm Gran Abs Auto 0.02 X10*3/uL (0.00-0.03); Imm Gran Pct Auto 0.3 % (0.0-0.4); Lymphocytes Absolute Auto 2.6 X10*3/uL (1.2-4.9); Lymphocytes Percent Auto 33.7 % (20-40); Mean Corpuscular HGB Conc 27.3 g/dl (31.0-35.0); Mean Corpuscular Hemoglobin 16.8 pg (27.0-33.0); Mean Corpuscular Volume 61.5 fL (80.0-98.0); Monocytes Absolute Auto 0.7 X10*3/uL (0.1-1.2); Monocytes Percent Auto 8.8 % (2-11); Neutrophils Absolute Auto 4.2 x10*3/uL (2.0-8.3); Neutrophils Percent Auto 54.8 % (45-73); Platelet Count 373 X10*3/uL (160-400); Red Blood Count 4.47 X10*6/uL (4.20-5.50); Red Cell Distribution Width 18.8 % (11.0-16.0); White Blood Count 7.7 X10*3/uL (4.8-10.8)
--- OUTSIDE RECORDS SUMMARY | 2024-05-20 14:13 | XMS_ITS | Clinical Summary ---
Author Organization [facility] ity Address [address] [place] [address] Care Team Providers Care Ticket Taker Name Role Phone Sage Brambila MD Primary Care Pr ovider Allergies Active Allergy Reactions Criticality Noted Date Comments Iron 04/20/2015 Per pt hx anemia but vomited on iron supplements. Medications amitriptyline (ELAVIL) 10 mg tablet TAKE 1 TO 2 TABLETS BY MOUTH AT BEDTIME 6 Active EPINEPHrine (EpiPen 2-Homer) 0.3 mg/0.3 mL injection Inject 0.3 mg into the muscle as needed for Other (anaphylactic reaction). Fill with whichever brand is covered by insurance. 7 Active fenofibrate micronized (ANTARA) 130 mg capsule Take 1 Cap by mouth every morning (before breakfast). 6 Active FREESTYLE LANCETS MISC TEST THREE TIMES A DAY 6 Active blood sugar diagnostic (FreeStyle Lite Strips) test strip USE TO TEST THREE TIMES DAILY 6 Active blood-glucose meter kit Test 3 x daily 6 Active glyBURIDE (DIABETA) 5 mg tablet Take 1 Tab by mouth daily (with breakfast). 8 Active lisinopriL (PRINIVIL,ZESTR IL) 5 mg tablet Take 1 tablet (5 mg total) by mouth 1 (one) time each day. 6 Active metFORMIN (GLUCOPHAGE) 1,000 mg tablet Take 1 tablet (1,000 mg total) by mouth 2 (two) times a day with meals. 8 Active pantoprazole (PROTONIX) 20 mg EC tablet Take 1 tablet (20 mg total) by mouth 1 (one) time each day. 6 Active sulfaSALAzine (AZULFIDINE) 500 mg tablet Take 1 Tab by mouth 2 times daily. 6 Active SUMAtriptan (IMITREX) 50 mg tablet Take 1 Tab by mouth as needed for Migraine. May repeat dose once after 2 hours, if needed. 8 Active Active Problems Problem Noted Date Diagnosed Date Migraines 05/22/2016 Seropositive rheumatoid arthritis 12/21/2015 Overview (03/18/2024): Polyarticular joint pain and swelling with positive rheumatoid factor. Hypertriglyceridemia 09/06/2015 Type 2 diabetes mellitus 08/31/2015 Overview (03/18/2024): uncontrolled Microcytic anemia 04/25/2015 Immunizations Name Administration Dates Next Due Tdap Tetanus diptheria acell ular pertussis (Boostrix; Adacel) 7yo and older 08/30/2015 Surgical History Surgery Date Site/Laterality Comments TUBAL LIGATION roughly 2012 PROCEDURE: HISTORICAL TUBAL LIGATION Medical History Medical History Date Comments Migraine DX:Migraine Anemia DX:Anemia Diabetes mellitus type 2, co ntrolled, with complications ([facility]) DX:Diabetes mellitus type 2, controlled, with complications ([facility]) Family History Medical History Relation Name Comments Blindness Neg Hx Cataracts Neg Hx Glaucoma Neg Hx Macular degeneration Neg Hx Strabismus Neg Hx Social History Tobacco Use Types Packs/Day Years Used Date Smoking Tobacco: Every Day Cigarettes Alcohol Use Standard Drinks/Week Comments Not Asked 0 (1 standard drink = 0.6 oz pur e alcohol) Comments Unknown Sex and Gender Information Value Date Recorded Sex Assigned at Not on file Legal Sex Female 3:32 PM EST Gender Identity Not on file Sexual Orientation Not on file Obstetrics History Plan of Treatment Health Maintenance Due Date Last Done Comments Breast Cancer Screening 1981 COVID-19 Vaccine (#1) 1986 Diabetes: Annual Foot Exam 1991 Diabetes: Annual Retina Eye Exam 1991 Hepatitis B Vaccines (1 of 3 - 19+ 3-dose series) 2000 Pneumococcal Vaccine: Pediat rics (0 to 5 Years) and At-Risk Patients (6 to 64 Years) (1 of 2 - PCV) 2000 Cervical Cancer Screening: P ap Smear 2002 Diabetes: Annual GFR (Glomer ular Filtration Rate) 05/22/2017 05/22/2016 Cholesterol Screening (Lipid Panel) 02/26/2022 05/22/2016 Depression Screening 02/26/2022 HIV Screening 02/26/2022 Social Influencers of Health Screening 02/26/2022 Diabetes: Annual Urine Albumin-Creatinine Ratio (uACR) 03/15/2022 05/22/2016 Diabetes: Blood Sugar Contro l Test (HGBA1C) 03/15/2022 05/22/2016 Influenza Vaccine (#1) 2023 DTaP,Tdap,and Td Vaccines (2 - Td or Tdap) 08/29/2025 08/30/2015 Hepatitis C Screening Completed 12/13/2015 HIB Vaccines Aged Out No longer eligi ble based on patient's age to complete this topic HPV Vaccines Aged Out No longer eligi ble based on patient's age to complete this topic Hepatitis A Vaccines Aged Out No long er eligible based on patient's age to complete this topic IPV Vaccines Aged Out No longer eligi ble based on patient's age to complete this topic MMR Vaccines Aged Out No longer eligi ble based on patient's age to complete this topic Meningococcal ACWY Vaccine Aged Out N o longer eligible based on patient's age to complete this topic Meningococcal B Vacine Aged Out No lo nger eligible based on patient's age to complete this topic RSV Immunization Patients Un madelyn 20 months Aged Out No longer eligible b ased on patient's age to complete this topic Varicella Vaccines Aged Out No longer eligible based on patient's age to complete this topic Procedures Procedure Name Priority Date/Time Associated Diagnosis Comments HM URINE ALBUMIN CREATININE RATIO Routine 05/22/2016 ANNUAL BMP BLOOD TEST Routine 05/22/2016 HEMOGLOBIN A1C Routine 05/22/2016 LIPID PANEL Routine 05/22/2016 HEPATITIS C SCREENING Routine 12/13/2015 from Last 3 Months or Most Recently Relevant to Health Maintenance Results * Urine Albumin Creatinine Ratio (05/22/2016) Pathologist [facility] Urine Albumin Creatinine Ratio abstracted [facility] Provider HEALTH MAINTENANCE Final Result * Annual BMP Blood Test (05/22/2016) [facility] Annual BMP Blood Test abstracted Result [facility] Provider HEALTH MAINTENANCE Final Result * (ABNORMAL) Hemoglobin A1c (05/22/2016) [facility] Hemoglobin A1C 8.1(A) 4.0 - 6.0 % Blood Venous blood specimen / Unknown Result [facility] Provider LAB BLOOD ORDERABLES [place] Result * (ABNORMAL) Lipid panel (05/22/2016) [facility] LDL/HDL Ratio 3 0 - 4 Triglycerides 314(A) 0 - 150 mg/dL Cholesterol 212(A) 0 - 200 mg/dL HDL 63 >=40 mg/dL LDL Cholesterol 87 0 - 100 mg/dL Blood Venous blood specimen / Unknown Result [facility] Provider LAB BLOOD ORDERABLES [place] Result * Hepatitis C Screening (12/13/2015) [facility] Hepatitis C Screening abstracted Result [facility] Provider HEALTH MAINTENANCE Final Result from Last 3 Months or Most Recently Relevant to Health Maintenance Care Teams Ticket Taker Relationship Specialty Start Date End Date Sage Brambila MD PCP - General 02/10/22
[2024-05-20 14:24] LABS: Anion Gap 15 (12-20); Blood Urea Nitrogen 7 mg/dL (9-16); Calcium 9.4 mg/dL (8.4-10.2); Carbon Dioxide 23 mmol/L (22-29); Chloride 103 mmol/L (96-108); Creatinine Clr Calc Pharmacy 91.5; Estimated Glomerular Filt Rate > 60; Glucose Random 379 mg/dL (60-115); HCG Quantitative < 2 mIU/mL; Magnesium 1.7 mg/dL (1.6-2.6); Sodium 137 mmol/L (135-145)
== END 2024-05-20 20:24 | disposition left against medical advice (07) ==
PROVIDERS: Physician Assistant Medical; Emergency Provider Emergency Medicine
DX: R68.84 Jaw pain (principal); R51.9 Headache, unspecified; K08.89 Other specified disorders of teeth and supporting structures; Z79.899 Other long term (current) drug therapy; Z83.438 Family history of other disorder of lipoprotein metabolism and other lipidemia
CPT/HCPCS: 36415; 80048; 83735; 84702; 85025; 99281; 99283

== ENCOUNTER 2024-09-14 13:51 | Emergency (ER) | payer MEDICAID, SELFPAY ==
[2024-09-14 13:59] VITALS: BP 143/90; PULSE 115; RESP 16; TEMP 36.8; O2SAT 98; BMI 22.7
--- NOTE | 2024-09-14 14:00 | ED.GENADULT ---
HPI - General Adult General Chief complaint: Seizure Stated complaint: 3 Seizures Today Time Seen by Provider: 09/14/24 16:00 Source: patient Mode of arrival: ambulatory Limitations: no limitations History of Present Illness ED Provider: Dr. Yuan Wilcox HPI narrative: 44-year-old female who presents emergency department for evaluation of his seizure that occurred in the parking lot of the hospital. Patient states that her 1st seizure was 3 months ago and she was seen at [facility]. she states that her 1st seizure was a witnessed seizure, she was told that her arms became rigid and she began shaking and lost consciousness. She states she had a negative CT and MRI of her head at that time. Patient was started on Topamax 50 mg twice a day and she states that this medication has been giving her numbness on the side of her face but she has been compliant with the medication. She states she was driving to the [facility] [place] try to make an appointment with our neurologist for follow-up of her seizures when she had a migraine-like headache which she describes as a pressure-like pain in the top of her head. She states she felt extremely tired and then had 3 [id number] seizures which were unwitnessed. at the time my evaluation she has no complaints. patient states that she takes gabapentin for diabetic peripheral neuropathy and was told to stop this medication while she was on Topamax. Since stopping her gabapentin, her neuropathy has been severe. Patient states that she gets daily migraine headaches which she describes as a pressure-like sensation in the top of her head. She states she takes amitriptyline for these headaches. Patient has been compliant with her diabetes medications which include metformin and Lantus and was compliant with her Topamax. She states that she gets occasional sweats and chills but she states that this has because she is premenopausal. She denied fever, nausea, vomiting, chest pain, shortness of breath, abdominal pain , weakness. Related Data Home Medications ?Medication ?Instructions ?Recorded ?Confirmed metformin 1,000 mg tablet 1,000 mg PO BID 01/07/20 01/07/20 Previous Rx's ?Medication ?Instructions ?Recorded cephalexin 500 mg capsule (Keflex) 500 mg PO Q6H 10 days #40 caps 01/07/20 oxycodone-acetaminophen 5 mg-325 1 tab PO Q6H PRN pain #10 tabs 01/07/20 mg tablet (Percocet) phenazopyridine 100 mg tablet 100 mg PO TID PRN pain 6 doses #10 01/07/20 (Pyridium) tabs doxycycline hyclate 100 mg capsule 100 mg PO BID #14 caps 05/31/20 ibuprofen 600 mg tablet 600 mg PO Q6-8H PRN pain #30 tabs 05/31/20 metronidazole 500 mg tablet 500 mg PO BID #7 tabs 05/31/20 (Flagyl) gabapentin 400 mg capsule 400 mg PO BID #60 caps 06/21/23 metformin 1,000 mg tablet 1,000 mg PO BID #60 tabs 06/21/23 nitrofurantoin 100 mg PO Q12H 3 days #6 caps 06/21/23 monohydrate/macrocrystals 100 mg capsule (Macrobid) metformin 1,000 mg tablet 1,000 mg PO BID 90 days #180 tabs 06/23/23 calcium carbonate (Tums) 200 mg PO TID #60 tabs 08/07/23 gabapentin 400 mg capsule 400 mg PO BID #30 caps 08/07/23 pantoprazole 40 mg tablet,delayed 40 mg PO DAILY #60 tabs 08/07/23 release nitrofurantoin 100 mg PO BID 7 days #14 caps 08/11/23 monohydrate/macrocrystals 100 mg capsule amoxicillin 875 mg-potassium 1 tab PO BID 10 days #20 tabs 10/20/23 clavulanate 125 mg tablet tramadol 50 mg tablet 50 mg PO TID PRN pain (scale score 10/20/23 7-10) #7 tabs levetiracetam 500 mg tablet 500 mg PO Q12H 30 days #60 tabs 09/14/24 (Keppra) Allergies Allergy/AdvReac Type Severity Reaction Status Date / Time iron dextran complex (IRON AdvReac Intermediate SOB, Verified 09/14/24 14:01 DEXTRAN COMPLEX) COUGHING, FLUSHING, Review of Systems Review of Systems: Yes all other systems are reviewed and are negative [facility] Past Medical History [facility] Narrative: social history: She occasionally drinks alcohol her last drink was 2 weeks prior and she states she only drank 1 alcoholic beverage. She does smoke cigarettes. She denies drug use. Medical History Neuropathy Migraine Anemia Rheumatoid arthritis Diabetes Surgical History Hx of cholecystectomy H/O tubal ligation Social History Social History Alcohol intake: current Alcohol intake frequency: holidays/special occasions only Smoked in Last 30 Days: Yes Use of substances other than those prescribed or required for medical reasons: No Advance Directives: No Advance Directives Information Provided: No Do you have a plan to hurt others: No Plan Patient : Yes Physical Exam ED Vital Signs: Vital Signs - 24 hr 09/14/24 13:59 09/14/24 16:00 Temperature 98.2 F 98.3 F Pulse Rate 115 H 112 H Respiratory Rate 16 19 Blood Pressure 143/90 H 135/83 Pulse Oximetry 98 100 Oxygen Delivery Method Room Air Room Air BMI result Body Mass Index 22.7 Vital signs revealed an elevated blood pressure of 143/90 otherwise unremarkable. Exam: General: Awake, alert in no distress Head: Normocephalic, atraumatic EENT: PERRL, Lids normal, sclera normal, conjunctiva normal, nose normal , ears normal, throat without erythema or exudates Neck: Supple, no adenopathy Lung: breath sounds symmetric, no wheezing, rales or rhonchi Chest: symmetric movement, nontender Heart: regular rate and rhythm, normal S1, S2 no murmurs or rubs Abdomen: soft, non-tender, nondistended, normal bowel sounds Back: no vertebral tenderness, no CVAT Extremities: no deformities, moves all extremities symmetrically Neuro: Awake, alert, oriented, normal speech, cranial nerves intact, moves all extremities symmetrically Psych: Pleasant, cooperative Course Course Course Narrative: RME, this is a rapid medical exam performed by Chandler Gracia please refer to primary provider for complete H&P- 44 year old female presents for evaluation of seizures. She reports that she had 3 or 4 seizures today. They were unwitnessed and she believes they were a few minutes. She reports being compliant with her topiramate. Plan for labs, UA Medications Administered Discontinued Medications Generic Name Dose Route Start Last Admin Trade Name Freq PRN Reason Stop Dose Admin Levetiracetam 1,000 mg in 100 mls @ 400 mls/hr 09/14/24 16:19 09/14/24 16:47 Keppra IV 09/14/24 16:33 Infused ONCE ONE Infusion Sodium Chloride 1,000 mls @ 999 mls/hr 09/14/24 16:19 09/14/24 16:27 Ns IV 09/14/24 17:19 999 mls/hr .Q1H1M STA Administration Medical Decision Making Medical Decision Making MDM Narrative: 44-year-old female who presents emergency department for evaluation of his seizure that occurred in the parking lot of the hospital. Patient states that her 1st seizure was 3 months ago and she was seen at [facility]. she states that her 1st seizure was a witnessed seizure, she was told that her arms became rigid and she began shaking and lost consciousness. She states she had a negative CT and MRI of her head at that time. Patient was started on Topamax 50 mg twice a day and she states that this medication has been giving her numbness on the side of her face but she has been compliant with the medication. She states she was driving to the [facility] to try to make an appointment with our neurologist for follow-up of her seizures when she had a migraine-like headache which she describes as a pressure-like pain in the top of her head. She states she felt extremely tired and then had 3 [id number] seizures which were unwitnessed. at the time my evaluation she has no complaints. patient states that she takes gabapentin for diabetic peripheral neuropathy and was told to stop this medication while she was on Topamax. Since stopping her gabapentin, her neuropathy has been severe. Patient states that she gets daily migraine headaches which she describes as a pressure-like sensation in the top of her head. She states she takes amitriptyline for these headaches. Patient has been compliant with her diabetes medications which include metformin and Lantus and was compliant with her Topamax. She states that she gets occasional sweats and chills but she states that this has because she is premenopausal. She denied fever, nausea, vomiting, chest pain, shortness of breath, abdominal pain , weakness.Vital signs revealed an elevated blood pressure otherwise unremarkable. Physical examination was unremarkable as well , with a normal neurologic exam Differential diagnosis: Includes but is not limited to migraine headache, electrical seizure, not electrical seizure, anemia, electrolyte abnormalities Course: 16:36 my interpretation patient's laboratory evaluation is as follows: chronic microcytic anemia with an H&H of 9.0 and 29.5 with an MCV of 69. Glucose elevated 375. Lactic acid elevated 3.0-and I suspect that this elevated lactic acid is due to her seizure and not due view diabetic ketoacidosis or infection. The patient states that she is getting paresthesias to her face since starting the Topamax therefore I advised her to stop this medication. The patient was loaded here in the emergency department with Keppra 1000 mg orally and will be started on Keppra 500 mg q.12 hours until she can follow-up with a neurologist. I told her that she can not drive since she has a new diagnosis of seizures . I told her that driving is extremely dangerous and if she has a seizure while she drive she could or kill someone else. Patient was given normal saline IV x1 L for her elevated glucose. 17:51 point of care glucose improved to 299, patient is feeling better and will be discharged. She was given printed and verbal instructions as well as the number for our Neurology group. Admission/Observation Consideration of admission/observation: Escalation of care including admission/observation considered ( Yes) Lab Data MDM Lab Attestation statement: I reviewed the patient's lab results. 09/14/24 14:39 09/14/24 14:39 Labs: Lab Results 09/14/24 09/14/24 09/14/24 Range/Units 14:39 16:13 17:02 WBC 10.0 (4.8-10.8) X10*3/uL RBC 4.27 (4.20-5.50) X10*6/uL Hgb 9.0 L (12.0-16.0) g/dl Hct 29.5 L (37.0-47.0) % MCV 69.1 L (80.0-98.0) fL MCH 21.1 L (27.0-33.0) pg MCHC 30.5 L (31.0-35.0) g/dl RDW 17.5 H (11.0-16.0) % Plt Count 445 H (160-400) X10*3/uL MPV 9.6 (9.4-12.3) fL Immature Gran % (Auto) 0.4 (0.0-0.4) % Neut % (Auto) 53.8 (45-73) % Lymph % (Auto) 35.4 (20-40) % [place] % (Auto) 8.3 (2-11) % Eos % (Auto) 1.5 (0-4) % Baso % (Auto) 0.6 (0-2) % Lymph # (Auto) 3.6 (1.2-4.9) X10*3/uL [place] # (Auto) 0.8 (0.1-1.2) X10*3/uL Eos # (Auto) 0.2 (0.0-0.4) X10*3/uL Baso # (Auto) 0.1 (0.0-0.2) X10*3/uL Abs Immat Gran (auto) 0.04 H (0.00-0.03) X10*3/uL Absolute Neuts (auto) 5.4 (2.0-8.3) x10*3/uL Absolute Nucleated RBC 0.000 (0.0-0.012) X10*3/uL Nucleated RBC % (auto) 0.0 (0.0-0.2) /100WBC Sodium 137 (135-145) mmol/L Potassium 3.8 (3.3-5.1) mmol/L Chloride 104 (96-108) mmol/L Carbon Dioxide 24 (22-29) mmol/L Anion Gap 13 (12-20) BUN 7 L (9-16) mg/dL Creatinine 0.64 (0.5-1.4) mg/dL Estim Creat Clear Calc 110.2 Estimated GFR > 60 Random Glucose 375 H* (60-115) mg/dL Lactic Acid 3.0 H* (0.5-2.0) mmol/L Lactic Acid F/U @ 2Hr 3.6 H* (0.5-2.0) mmol/L Calcium 9.1 (8.4-10.2) mg/dL Magnesium 1.9 (1.6-2.6) mg/dL Total Bilirubin 0.1 (0.0-1.0) mg/dL AST 14 (5-31) U/L ALT 14 (0-31) U/L Alkaline Phosphatase 86 (39-117) U/L Total Protein 7.9 (6.5-8.0) g/dL Albumin 4.2 (3.5-5.0) g/dL Lipase 38 (8-78) U/L Beta HCG, Quant < 2 mIU/mL Urine Color [place] A Urine Appearance Clear Urine pH 6.0 (5.0-9.0) Ur Specific [place] >= 1.030 H (1.005-1.025) Urine Protein Trace (Neg-Trace) mg/dL Urine Glucose (UA) >=1000 H (Negative) mg/dL Urine Ketones Negative (Negative) mg/dL Urine Blood Large (3+) H (Negative) Urine Nitrite Negative (Negative) Ur Leukocyte Esterase Negative (Negative) Urine RBC >20 H (0-2) /HPF Urine WBC 6-10 H (0-5) /HPF Ur Squamous Epith Cells 0-2 (0-2) /HPF Urine Bacteria None Seen (None Seen) Hyaline Casts 0-2 (0-2) /LPF Urine Opiates Screen Not Detected (Not Detect) Ur Buprenorphine Scrn Not Detected (Not Detect) ng/mL Ur Oxycodone Screen Not Detected (Not Detect) ng/mL Urine Methadone Screen Not Detected (Not Detect) ng/mL Urine Fentanyl Screen Not Detected (Not Detect) Ur Barbiturates Screen Not Detected (Not Detect) Ur Phencyclidine Scrn Not Detected (Not Detect) Ur Amphetamines Screen Not Detected (Not Detect) U Benzodiazepines Scrn Not Detected (Not Detect) Urine Cocaine Screen POSITIVE H (Not Detect) U Marijuana (THC) Screen Not Detected (Not Detect) Prescription Management I considered prescription management with: Other antiepileptic medication: Keppra Discharge Plan Discharge Clinical Impression: Seizure, Acute hyperglycemia, Elevated lactic acid level Patient Disposition: Home, Self-Care Instructions: New-Onset Seizure in Adults (ED) Additional Instructions: At this time, I believe that you did have a seizure. It is dangerous to drive or do other activities that you can get injured during with the diagnosis of seizures that have not been adequately controlled. You can not drive, if you drive and have a seizure you will kill yourself or kill someone else. I believe that the tingling this in your face is caused by the Topamax, I want you to stop this medication. I am starting you on a different antiseizure medication called Keppra, you received Keppra 1000 mg IV here in the emergency department. Take Keppra 500 mg every 12 hours (twice a day). You need to stay on this medication until you were seen by a neurologist. Your glucose was high but this could be secondary to the seizure, make sure you take your seizure medications as prescribed. The interaction between Keppra and gabapentin is increased sleepiness but I think that you can take these 2 medications together safely as long as that does not make you too sleepy. You should get your doctor to refill your gabapentin prescription. Follow-up with your doctor in 2 days Call our Neurology group to see if you get a follow up appointment for further evaluation of your seizures. Please return to the emergency department if your symptoms get worse or if you develop any symptoms that are concerning to you. Prescriptions: New levetiracetam [Keppra] 500 mg tablet 500 mg PO Q12H 30 Days Qty: 60 3RF No Action metronidazole [Flagyl] 500 mg tablet 500 mg PO BID Qty: 7 0RF doxycycline hyclate 100 mg capsule 100 mg PO BID Qty: 14 0RF ibuprofen 600 mg tablet 600 mg PO Q6-8H PRN (Reason: pain) Qty: 30 0RF metformin 1,000 mg Tablet 1,000 mg PO BID cephalexin [Keflex] 500 mg capsule 500 mg PO Q6H 10 Days Qty: 40 0RF phenazopyridine [Pyridium] 100 mg tablet 100 mg PO TID PRN (Reason: pain) Qty: 10 0RF oxycodone-acetaminophen [Percocet] 5-325 mg tablet 1 tab PO Q6H PRN (Reason: pain) Qty: 10 0RF pantoprazole 40 mg tablet,delayed release (DR/EC) 40 mg PO DAILY Qty: 60 0RF gabapentin 400 mg capsule 400 mg PO BID Qty: 30 0RF calcium carbonate [Tums] 200 mg calcium (500 mg) tablet,chewable 200 mg PO TID Qty: 60 0RF nitrofurantoin monohyd/m-cryst 100 mg capsule 100 mg PO BID 7 Days Qty: 14 0RF Rx Instructions: must administer with a meal/food amoxicillin-pot clavulanate 875-125 mg tablet 1 tab PO BID 10 Days Qty: 20 0RF tramadol 50 mg tablet 50 mg PO TID PRN (Reason: pain (scale score 7-10)) Qty: 7 0RF metformin 1,000 mg tablet 1,000 mg PO BID Qty: 60 0RF gabapentin 400 mg capsule 400 mg PO BID Qty: 60 0RF nitrofurantoin monohyd/m-cryst [Macrobid] 100 mg capsule 100 mg PO Q12H 3 Days Qty: 6 0RF Rx Instructions: must administer with a meal/food metformin 1,000 mg tablet 1,000 mg PO BID 90 Days Qty: 180 0RF Referrals: Sunday Christy MD [Physician, Neurology] - 2 weeks Referral Note: new onset seizure 3 months prior, reported 3 seizures prior to arrival to the ED, stop Topamax and started Keppra 500 mg q.12 hours Clinical Impression: Seizure Print Language: Korean
[2024-09-14 14:47] LABS: MANUAL DIFF FLAG NO
[2024-09-14 14:49] LABS: Basophils Absolute Auto 0.1 X10*3/uL (0.0-0.2); Basophils Percent Auto 0.6 % (0-2); Eosinophils Absolute Auto 0.2 X10*3/uL (0.0-0.4); Eosinophils Percent Auto 1.5 % (0-4); Hematocrit 29.5 % (37.0-47.0); Imm Gran Abs Auto 0.04 X10*3/uL (0.00-0.03); Imm Gran Pct Auto 0.4 % (0.0-0.4); Lymphocytes Absolute Auto 3.6 X10*3/uL (1.2-4.9); Lymphocytes Percent Auto 35.4 % (20-40); Mean Corpuscular HGB Conc 30.5 g/dl (31.0-35.0); Mean Corpuscular Hemoglobin 21.1 pg (27.0-33.0); Mean Corpuscular Volume 69.1 fL (80.0-98.0); Mean Platelet Volume 9.6 fL (9.4-12.3); Monocytes Absolute Auto 0.8 X10*3/uL (0.1-1.2); Monocytes Percent Auto 8.3 % (2-11); Neutrophils Absolute Auto 5.4 x10*3/uL (2.0-8.3); Neutrophils Percent Auto 53.8 % (45-73); Platelet Count 445 X10*3/uL (160-400); Red Blood Count 4.27 X10*6/uL (4.20-5.50); Red Cell Distribution Width 17.5 % (11.0-16.0)
[2024-09-14 15:17] LABS: Alanine Aminotransferase 14 U/L (0-31); Albumin Level 4.2 g/dL (3.5-5.0); Alkaline Phosphatase 86 U/L (39-117); Anion Gap 13 (12-20); Aspartate Amino Transferase 14 U/L (5-31); Bilirubin Total 0.1 mg/dL (0.0-1.0); Blood Urea Nitrogen 7 mg/dL (9-16); Calcium 9.1 mg/dL (8.4-10.2); Carbon Dioxide 24 mmol/L (22-29); Chloride 104 mmol/L (96-108); Creatinine Clr Calc Pharmacy 110.2; Estimated Glomerular Filt Rate > 60; Glucose Random 375 mg/dL (60-115); Lipase 38 U/L (8-78); Magnesium 1.9 mg/dL (1.6-2.6); Potassium 3.8 mmol/L (3.3-5.1); Sodium 137 mmol/L (135-145); Total Protein 7.9 g/dL (6.5-8.0)
[2024-09-14 15:33] LABS: HCG Quantitative < 2 mIU/mL
[2024-09-14 16:00] VITALS: BP 135/83; PULSE 112; RESP 19; TEMP 36.8; O2SAT 100
[2024-09-14] MEDS: 0.9 % Sodium Chloride 1,000 ML 999 ML IV (16:27)
[2024-09-14] MEDS: levETIRAcetam in NaCl (iso-os) 1,000 MG/100 ML PIGGYBACK 400 MG IV (16:27)
[2024-09-14 16:35] LABS: Appearance Urine Clear; Color Urine Orange; Glucose Urine UA >=1000 mg/dL (Negative); Leukocyte Esterase Urine Negative (Negative); Nitrite Urine Negative (Negative); Specific Gravity - Urine >= 1.030 (1.005-1.025); UMIC TRIGGER UACC YES; Urine Blood Large (3+) (Negative); Urine Ketones Negative (Negative); Urine Protein Trace mg/dL (Neg-Trace)
[2024-09-14 16:40] LABS: Bacteria Urine None Seen (None Seen); Hyaline Casts Urine 0-2 /LPF (0-2); RBC Urine >20 /HPF (0-2); Squamous Epithelial Cell Urine 0-2 /HPF (0-2); UACC Culture Trigger YES
[2024-09-14 16:43] LABS: Amphetamine Screen Urine Not Detected (Not Detect); Barbiturates, Urine Not Detected (Not Detect); Benzodiazepines Screen Urine Not Detected (Not Detect); Buprenorphine Scr Not Detected (Not Detect); Cannabinoid Screen Urine Not Detected (Not Detect); Cocaine Screen Urine POSITIVE (Not Detect); Fentanyl, urine Not Detected (Not Detect); Methadone Screen, Urine Not Detected (Not Detect); Opiate Screen Urine Not Detected (Not Detect); Oxycodone Screen Urine Not Detected (Not Detect); Phencyclidine Screen Urine Not Detected (Not Detect)
[2024-09-14 16:45] LABS: Reflex Lactate? Lactic Acid Added
[2024-09-14 17:29] LABS: ~Lactic Acid-LAB USE ONLY 3.6 mmol/L (0.5-2.0)
[2024-09-14 18:03] VITALS: BP 135/83; PULSE 112; RESP 19; TEMP 36.8; O2SAT 100
--- OUTSIDE RECORDS SUMMARY | 2024-09-14 18:10 | XMS_ITS | Clinical Summary ---
Author Organization [facility] ity Address [address] [place] [address] Care Team Providers Care Speech Teacher Name Role Phone Sage Brambila MD Primary [...] Date Diagnosed Date Migraines 05/22/2016 Seropositive rheumatoid arth ritis ([facility] V24, [facility] V28) 12/21/2015 Overview (03/18/2024): Polyarticular joint pain and swelling with positive rheumatoid factor. Hypertriglyceridemia 09/06/2015 Type 2 diabetes mellitus ([facility] V24, [facility] V 28) 08/31/2015 Overview (03/18/2024): uncontrolled Microcytic anemia 04/25/2015 Immunizations Name Administration Dates Next Due Tdap Tetanus diptheria acell ular pertussis (Boostrix; Adacel) 7yo and older 08/30/2015 Surgical History Surgery Date Site/Laterality Comments TUBAL LIGATION roughly 2012 PROCEDURE: HISTORICAL TUBAL LIGATION Medical History Medical History Date Comments Migraine DX:Migraine Anemia DX:Anemia Diabetes mellitus type 2, co ntrolled, with complications ([facility] V24, [facility] V28) DX:Diabetes mellitus type 2, controlled, with complications ([facility]) Family History Medical History Relation Name Comments [...] l Test (HGBA1C) 03/15/2022 05/22/2016 Influenza Vaccine (Season Ended) 2024 DTaP,Tdap,and Td Vaccines (2 - Td or [...] age to complete this topic Meningococcal B Vaccine Aged Out No l onger eligible based on patient's age to complete [...] Results * Urine Albumin Creatinine Ratio (05/22/2016) [facility] Urine Albumin Creatinine Ratio abstracted Result [facility] Provider HEALTH MAINTENANCE Final Result * Annual BMP Blood Test (05/22/2016) [facility] Annual BMP Blood Test abstracted Result [facility] Provider HEALTH MAINTENANCE Final Result * (ABNORMAL) Hemoglobin A1c (05/22/2016) [facility] Hemoglobin A1C 8.1(A) 4.0 - 6.0 % Blood Venous blood specimen / Unknown Result [facility] Provider LAB BLOOD ORDERABLES [place] Result * (ABNORMAL) Lipid panel (05/22/2016) [facility] LDL/HDL Ratio 3 0 - 4 Triglycerides 314(A) 0 - 150 mg/dL Cholesterol 212(A) 0 - 200 mg/dL HDL 63 >=40 mg/dL LDL Cholesterol 87 0 - 100 mg/dL Blood Venous blood specimen / Unknown Result [facility] Provider LAB BLOOD ORDERABLES [place] Result * Hepatitis C Screening (12/13/2015) [facility] Hepatitis C Screening abstracted Result [facility] Provider HEALTH MAINTENANCE Final Result from Last 3 Months or Most Recently Relevant to Health Maintenance Care Teams Speech Teacher Relationship Specialty Start Date End Date Sage Brambila MD PCP - General 02/10/22
[2024-09-14 19:05] LABS: Reflex Lactate? 2 Y
== END 2024-09-14 18:03 | disposition home or self-care (01) ==
PROVIDERS: Physician Assistant; Emergency Provider Emergency Medicine Emergency Medical Services
DX: R56.9 Unspecified convulsions (principal); E11.65 Type 2 diabetes mellitus with hyperglycemia; R74.02 Elevation of levels of lactic acid dehydrogenase [LDH]; G43.909 Migraine, unspecified, not intractable, without status migrainosus; Z79.84 Long term (current) use of oral hypoglycemic drugs; Z79.899 Other long term (current) drug therapy; Z79.4 Long term (current) use of insulin
CPT/HCPCS: 36415; 80053; 80307; 81001; 83605; 83690; 83735; 84702; 85025; 87086; 96361; 96374; 99284; J1953